=== PATIENT | female | born 1930 | race Caucasian/White ===

== ENCOUNTER 2017-02-24 04:38 | Inpatient (IN) | payer MEDICARE, BC ==
[~2017-02-24] VITALS: Ht 165.1 cm; Wt 45.4 kg
[2017-02-24] MEDS ORDERED: Sodium Chloride 500ML 500 ML IV ONE (04:39)
[2017-02-24 05:17] LABS: MEAN CORPUSCULAR HEMOGLOBIN 33.2 PG (27.0-31.0); MEAN CORPUSCULAR VOLUME 101 FL (80-99); MEAN PLATELET VOLUME 5.4 FL (6.5-10.1); PLATELET COUNT 443 K/UL (150-450); RED BLOOD COUNT 3.91 M/UL (4.20-5.40); RED CELL DISTRIBUTION WIDTH 13.4 % (11.6-14.8); WHITE BLOOD COUNT 12.8 K/UL (4.8-10.8)
[2017-02-24] MEDS ORDERED: AMLODIPINE BESYL5 MG ORAL (05:32)
[2017-02-24] MEDS ORDERED: CARAFATE1 GM/10 M1 ORAL ×2 (05:32)
[2017-02-24] MEDS ORDERED: KEPPRA LIQ100 MG/1 M ORAL (05:32)
[2017-02-24] MEDS ORDERED: LOVENOX10 M4 SUBQ (05:32)
[2017-02-24] MEDS ORDERED: CELEXA20 MG ORAL (05:32)
[2017-02-24] MEDS ORDERED: DEPAKOTE250 MG PO (05:32)
[2017-02-24] MEDS ORDERED: MIRTAZAPINE30 MG ORAL (05:32)
[2017-02-24] MEDS ORDERED: OMEPRAZOLE20 M3 ORAL (05:32)
[2017-02-24] MEDS ORDERED: DOCUSATE SODIU100 MG ORAL ×2 (05:32)
[2017-02-24 05:34] LABS: ALANINE AMINOTRANSFERASE 19 U/L (3-33); ALBUMIN/GLOBULIN RATIO 1.3 (1.0-2.7); ANION GAP 19 (5-15); ASPARTATE AMINO TRANSFERASE 17 U/L (5-40); CALCIUM 9.9 mg/dL (8.6-10.2); CARBON DIOXIDE 21 mEQ/L (20-30); CHLORIDE 100 mEQ/L (98-107); CREATININE 1.2 mg/dL (0.5-0.9); HEMOLYSIS 4; POTASSIUM 3.9 mEQ/L (3.4-4.9); SODIUM 140 mEQ/L (135-145); TOTAL PROTEIN 6.1 g/dL (6.6-8.7); TROPONIN I < 0.30 ng/mL (<=0.30)
[2017-02-24 05:41] VITALS: BP 145/58
[2017-02-24 05:45] LABS: CKMB < 1.5 ng/mL (< 3.8)
[2017-02-24 06:08] LABS: ABG ALLEN TEST POSITIVE; ABG BASE EXCESS -8.4; ABG PCO2 25.5 mmHg (35.0-45.0)
[2017-02-24 06:13] LABS: REFLEX LACTIC ACID YES OR NO YES
[2017-02-24] MEDS ORDERED: Sodium Chloride 500ML 500 ML IVPB ONE (06:30)
[2017-02-24 06:33] LABS: APPEARANCE,URINE CLEAR; KETONES,URINE NEGATIVE (NEGATIVE); LEUKOCYTE ESTERASE ,URINE 1+ (NEGATIVE); NITRITE,URINE NEGATIVE (NEGATIVE); PH,URINE 5 (4.5-8.0); PROTEIN,URINE 1+ (NEGATIVE); UROBILINOGEN,URINE NORMAL MG/DL (0.0-1.0)
[2017-02-24 06:51] VITALS: BP 145/67
[2017-02-24 06:55] LABS: BACTERIA,URINE FEW /HPF; MUCUS,URINE MODERATE /LPF (NONE/OCC); SQUAMOUS EPITHELIAL CELL,UR FEW /LPF (NONE/OCC); YEAST,URINE MODERATE /HPF
--- NOTE | 2017-02-24 06:55 | Emergency Room Report ---
History of Present Illness General Chief Complaint: Dyspnea/Respdistress Source: Medical Record Present Illness HPI 87-year-old female presents ED for evaluation. Patient presenting with shortness of breath and hypoxia at her correction. Patient was just recently transferred to the correction from the hospital after having a left upper extremity fx. patient was initially hypoxic and placed on oxygen. Patient has dementia and is at her baseline. Patient is a new provide any additional history at this time. No fevers or chills. No other aggravating or leading factors. No other associated symptom Allergies: Coded Allergies: NO KNOWN ALLERGIES (Unverified Allergy, Unknown, 08/24/15) Patient History Past Medical History: HTN, AFib, CVA/TIA, dementia Past Surgical History: none Pertinent Family History: none Social History: Denies: smoking, alcohol use, drug use Now: No Immunizations: UTD Reviewed Nursing Documentation: PMH: Agreed, PSxH: Agreed Nursing Documentation-PMH Hx Cardiac Problems: Yes - A FIB Hx Hypertension: Yes History Of Psychiatric Problem: Yes - DEMENTIA Hx Cerebrovascular Accident: Yes Review of Systems All Other Systems: limited Physical Exam Vital Signs Date Time Temp Pulse Resp B/P (MAP) Pulse Ox O2 Delivery O2 Flow Rate FiO2 02/24/17 04:26 98.6 120 15 133/61 88 Non-Rebreather 15.0 02/24/17 06:38 97 Sp02 EP Interpretation: reviewed, normal General Appearance: no apparent distress, alert, GCS 15, non-toxic Head: normocephalic Eyes: bilateral eye normal inspection, bilateral eye PERRL ENT: normal ENT inspection Neck: normal inspection Respiratory: chest non-tender, normal breath sounds, crackles, speaking full sentences Cardiovascular #1: regular rate, rhythm, no edema Gastrointestinal: normal inspection Rectal: deferred Genitourinary: no CVA tenderness Musculoskeletal: normal inspection Neurologic: other - dementia Psychiatric: other - dementia Skin: normal inspection Lymphatic: normal inspection Medical Decision Making Diagnostic Impression: Primary Impression: Respiratory distress Additional Impressions: Pneumonia Qualified Codes: J18.9 - Pneumonia, unspecified organism Severe sepsis ER Course Hospital Course 87-year-old F presenting to ED with respiratory distress, hypoxia Differential diagnoses include: Pneumonia, CHF exacerbation, pneumothorax, fluid overload Clinical course Patient placed on stretcher. On ekg monitor with hypoxia on room air. After initial history and physical, I ordered oxygen. I ordered labs, IV fluids , EKG, chest x-ray, blood cultures, UA. Labs -leukocytosis noted, hemoglobin/hematocrit stable, electrolytes ok, lactate >7, troponins negative CXR - LLL lobe infiltrate EKG - NSR, no acute ischemic changes interpreted by me given 30cc/kg fluid bolus, given abx. Case discussed with Dr. Wood and he agreed to the patient to his service for further care and support I feel this is a highly complex case requiring extensive working including EKG/ Rhythm strip, Xray/CT/US, Blood/urine lab work, repeat exams while in ED, and administration of strong opiates/narcotics for pain control, admission to hospital or close patient follow up. Diagnosis - pneumonia, respiratory distress, severe sepsis Patient admitted to telemetry in serious condition Labs Test 02/24/17 04:56 02/24/17 06:00 02/24/17 06:22 White Blood Count 12.8 K/UL (4.8-10.8) Red Blood Count 3.91 M/UL (4.20-5.40) Hemoglobin 13.0 G/DL (12.0-16.0) Hematocrit 39.4 % (37.0-47.0) Mean Corpuscular Volume 101 FL (80-99) Mean Corpuscular Hemoglobin 33.2 PG (27.0-31.0) Mean Corpuscular Hemoglobin Concent 33.0 G/DL (32.0-36.0) Red Cell Distribution Width 13.4 % (11.6-14.8) Platelet Count 443 K/UL (150-450) Mean Platelet Volume 5.4 FL (6.5-10.1) Neutrophils (%) (Auto) % (45.0-75.0) Lymphocytes (%) (Auto) % (20.0-45.0) Monocytes (%) (Auto) % (1.0-10.0) Eosinophils (%) (Auto) % (0.0-3.0) Basophils (%) (Auto) % (0.0-2.0) Sodium Level 140 mEQ/L (135-145) Potassium Level 3.9 mEQ/L (3.4-4.9) Chloride Level 100 mEQ/L (98-107) Carbon Dioxide Level 21 mEQ/L (20-30) Anion Gap 19 (5-15) Blood Urea Nitrogen 12 mg/dL (7-23) Creatinine 1.2 mg/dL (0.5-0.9) Estimat Glomerular Filtration Rate mL/min (>60) Glucose Level 261 mg/dL (74-106) Lactic Acid Level 7.40 mmol/L (0.66-2.22) Calcium Level 9.9 mg/dL (8.6-10.2) Total Bilirubin 0.5 mg/dL (0.0-1.2) Aspartate Amino Transf (AST/SGOT) 17 U/L (5-40) Alanine Aminotransferase (ALT/SGPT) 19 U/L (3-33) Alkaline Phosphatase 113 U/L (35-104) Total Creatine Kinase 34 U/L (26-140) Creatine Kinase MB < 1.5 ng/mL (< 3.8) Creatine Kinase MB Relative Index 4.4 Troponin I < 0.30 ng/mL (<=0.30) Pro-B-Type Natriuretic Peptide 767 pg/mL (0-450) Total Protein 6.1 g/dL (6.6-8.7) Albumin 3.5 g/dL (3.5-5.2) Globulin 2.6 g/dL Albumin/Globulin Ratio 1.3 (1.0-2.7) Arterial Blood pH 7.387 (7.350-7.450) Arterial Blood Partial Pressure CO2 25.5 mmHg (35.0-45.0) Arterial Blood Partial Pressure O2 84.1 mmHg (75.0-100.0) Arterial Blood HCO3 15.0 mmol/L (22.0-26.0) Arterial Blood Oxygen Saturation 95.0 % (92.0-98.0) Arterial Blood Base Excess -8.4 Wesley Test Positive EKG Diagnostic Results Rate: tachycardiac Rhythm: NSR ST Segments: no acute changes ASA given to the pt in ED: No Rhythm Strip Diag. Results EP Interpretation: yes Rhythm: NSR, no PVC's, no ectopy Chest X-Ray Diagnostic Results Chest X-Ray Diagnostic Results : Chest X-Ray Ordered: Yes # of Views/Limited/Complete: 1 View Indication: Shortness of Breath EP Interpretation: Yes Interpretation: no pneumothorax, no acute cardiopulmonary disease, other - LLL consolidation Impression: Other - pneumonia Last Vital Signs Date Time Temp Pulse Resp B/P (MAP) Pulse Ox O2 Delivery O2 Flow Rate FiO2 02/24/17 06:38 95 36 Non-Rebreather 15.0 97 02/24/17 05:41 98.6 145/58 88 Status: improved Disposition: ADMITTED INPATIENT Condition: Serious Referrals: GEETA WOOD (PCP) TOÑA MORA M.D. Feb 24, 2017 06:55
[2017-02-24] MEDS ORDERED: Pantoprazole Inj IVP ONE (08:00)
[2017-02-24] MEDS ORDERED: Thiamine 100mg tab ORAL ONE (08:00)
--- NOTE | 2017-02-24 08:56 | Consultation ---
Consult Note Assessment/Plan dict sepsis pneumonia dementia lactic acidosis L humerus fx s/p CVA P A fib seizure d/o abx O2 HHN prognosis guarded PAULINA ANAND Feb 24, 2017 08:56
[2017-02-24] MEDS ORDERED: Acetaminophen 650 MG SUPP RECTAL ONE ×2 (09:48→10:00)
[2017-02-24] MEDS ORDERED: Tubing IV Cassette IV ONE (09:48)
--- NOTE | 2017-02-24 11:12 | Diagnostic Imaging Report ---
Indication: Dyspnea Comparison: 07/21/11 A single view chest radiograph was obtained. Findings: Basilar interstitial densities are present. Heart size remains normal. Pulmonary vascularity is likely within normal limits. Bones are osteopenic. Multiple old rib fractures noted on the left. A left humeral renan is partially noted. Impression: Basilar densities likely atelectasis. Rib fractures on the left likely old. Osteoporosis.
[2017-02-24 12:00] VITALS: BP 123/69
[2017-02-24] MEDS ORDERED: Vancomycin 1gm/D5W 275ml IVPB ONE ×2 (12:00)
[2017-02-24] MEDS ORDERED: Thiamine HCl 100 MG in D5W 55 ML IVPB ONE (13:00)
[2017-02-24] MEDS: D5 1/2NS 1,000 ML IV SCH ×2 (13:21→18:35)
[2017-02-24] MEDS: Pantoprazole Inj IVP SCH ×2 (13:39→21:17)
[2017-02-24] MEDS: Albuterol/Ipratropium 3ml neb INH SCH ×2 (15:17→19:00)
[2017-02-24] MEDS: Piperacillin/Tazobactam 3.375 GM in D5W 110 ML IV SCH ×2 (15:32→21:18)
--- NOTE | 2017-02-24 15:38 | Geriatric Progress Note ---
Subjective Interval Events Patient admitted after vomiting, developing congestion and hypoxia at SNF, within 12 hours of transfer from [facility]. In ER findings of mild leukocytosis, marked lactic acidosis. CXR consistent with element of aspiration pneumonia. On examination patient with significant respiratory congestion. PMH: Surgical reduction of displaced L humeral fx at [facility] complicated by lacunar stroke. Poor oral intake associated with above. 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 HTN. Hx parathyroid disorder. Spinal stenosis with gait disorder and LE weakness. Osteoporosis. S/p hyst, appy, tonsillectomy. Meds: Amlodipine 5mg qd. Vit D3 2000u daily. Celexa 20 daily. Mirtazapine 15mg qhs. Divalproex 250mg qnoon and qhs. Docusate 100mg qam, qnoon, 2tabs qhs. Olanzapine 2.5mg bid. Omeprazole 20mg daily. Vortioxetine 10mg daily. Senna qhs Cranberry 500 bid. MVI. Patient audibly congested. Opens eyes to auditory stimuli, but does not look at examiner. No verbalizations. Does not follow instructions. L arm immobilizer. Lungs coarse rhonchi and rales. CV RR Abd soft. Ext without edema, but increased tone throughout. Apparent sepsis with pulmonary source, likely aspiration. Seen by Dr. Carranza, placed on Vanco, Zosyn. Continue NRBM O2, suction prn. Thiamine, MVI given for any possible contribution to lactic acidosis. Decrease IVF given fairly normal renal parameters, slightly elevated ProBNP. 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 Poor prognosis. Discussed with dtr. Family is jain, so patient remains full code despite questionable quality of life and limited prognosis. Dictated #[id number]. Geriatric Geriatric Last 24 Hour Vital Signs Date Time Temp Pulse Resp B/P (MAP) Pulse Ox O2 Delivery O2 Flow Rate FiO2 02/24/17 12:00 109 02/24/17 12:00 97.9 100 24 123/69 98 Non-Rebreather 15.0 02/24/17 09:50 100.4 95 36 145/67 95 Non-Rebreather 15.0 97 02/24/17 09:50 100.4 02/24/17 06:51 97.6 95 36 145/67 95 Non-Rebreather 15.0 02/24/17 06:38 95 36 Non-Rebreather 15.0 97 02/24/17 05:41 98.6 95 15 145/58 88 Non-Rebreather 15.0 02/24/17 04:26 98.6 120 15 133/61 88 Non-Rebreather 15.0 Intake and Output 02/24/17 02/25/17 19:00 07:00 Intake Total 1070.708 ml Balance 1070.708 ml Intake IV Total 1070.708 ml Laboratory Tests Test 02/24/17 04:56 02/24/17 06:00 02/24/17 06:22 02/24/17 08:55 White Blood Count 12.8 K/UL (4.8-10.8) H Red Blood Count 3.91 M/UL (4.20-5.40) L Hemoglobin 13.0 G/DL (12.0-16.0) Hematocrit 39.4 % (37.0-47.0) Mean Corpuscular Volume 101 FL (80-99) H Mean Corpuscular Hemoglobin 33.2 PG (27.0-31.0) H Mean Corpuscular Hemoglobin Concent 33.0 G/DL (32.0-36.0) Red Cell Distribution Width 13.4 % (11.6-14.8) Platelet Count 443 K/UL (150-450) Mean Platelet Volume 5.4 FL (6.5-10.1) L Neutrophils (%) (Auto) % (45.0-75.0) Lymphocytes (%) (Auto) % (20.0-45.0) Monocytes (%) (Auto) % (1.0-10.0) Eosinophils (%) (Auto) % (0.0-3.0) Basophils (%) (Auto) % (0.0-2.0) Sodium Level 140 mEQ/L (135-145) Potassium Level 3.9 mEQ/L (3.4-4.9) Chloride Level 100 mEQ/L (98-107) Carbon Dioxide Level 21 mEQ/L (20-30) Anion Gap 19 (5-15) H Blood Urea Nitrogen 12 mg/dL (7-23) Creatinine 1.2 mg/dL (0.5-0.9) H Estimat Glomerular Filtration Rate mL/min (>60) Glucose Level 261 mg/dL (74-106) H Lactic Acid Level 7.40 mmol/L (0.66-2.22) H 8.00 mmol/L (0.66-2.22) H Calcium Level 9.9 mg/dL (8.6-10.2) Total Bilirubin 0.5 mg/dL (0.0-1.2) Aspartate Amino Transf (AST/SGOT) 17 U/L (5-40) Alanine Aminotransferase (ALT/SGPT) 19 U/L (3-33) Alkaline Phosphatase 113 U/L (35-104) H Total Creatine Kinase 34 U/L (26-140) Creatine Kinase MB < 1.5 ng/mL (< 3.8) Creatine Kinase MB Relative Index 4.4 Troponin I < 0.30 ng/mL (<=0.30) Pro-B-Type Natriuretic Peptide 767 pg/mL (0-450) H Total Protein 6.1 g/dL (6.6-8.7) L Albumin 3.5 g/dL (3.5-5.2) Globulin 2.6 g/dL Albumin/Globulin Ratio 1.3 (1.0-2.7) Arterial Blood pH 7.387 (7.350-7.450) Arterial Blood Partial Pressure CO2 25.5 mmHg (35.0-45.0) L Arterial Blood Partial Pressure O2 84.1 mmHg (75.0-100.0) Arterial Blood HCO3 15.0 mmol/L (22.0-26.0) L Arterial Blood Oxygen Saturation 95.0 % (92.0-98.0) Arterial Blood Base Excess -8.4 Wesley Test Positive Urine Color Yellow Urine Appearance Clear Urine pH 5 (4.5-8.0) Urine Specific [place] 1.025 (1.005-1.035) Urine Protein 1+ (NEGATIVE) H Urine Glucose (UA) Negative (NEGATIVE) Urine Ketones Negative (NEGATIVE) Urine Occult Blood 1+ (NEGATIVE) H Urine Nitrite Negative (NEGATIVE) Urine Bilirubin Negative (NEGATIVE) Urine Urobilinogen Normal MG/DL (0.0-1.0) Urine Leukocyte Esterase 1+ (NEGATIVE) H Urine RBC 2-4 /HPF (0 - 2) H Urine WBC 2-4 /HPF (0 - 2) Urine Squamous Epithelial Cells Few /LPF (NONE/OCC) Urine Bacteria Few /HPF (NONE) Urine Mucus Moderate /LPF (NONE/OCC) H Urine Yeast Moderate /HPF (NONE) H Current Medications Medications (Trade) Dose Ordered Sig/Autumn Route PRN Reason Start Time Stop Time Status Last Admin Dose Admin Albuterol/ Ipratropium (DuoNeb 0.5-3(2.5)mg/3ml) 3 ml Q4HRT INH 02/24/17 15:00 03/01/17 14:59 Dextrose/Sodium Chloride 1,000 ml @ 125 mls/hr Q8H IV 02/24/17 11:30 03/26/17 11:29 02/24/17 13:21 Heparin Sodium (Porcine) (Heparin 5000 units/ml) 5,000 units Q12H SUBQ 02/24/17 21:00 03/26/17 20:59 Pantoprazole (Protonix) 40 mg EVERY 12 HOURS IVP 02/24/17 12:00 03/26/17 11:59 02/24/17 13:39 Piperacillin Sod/ Tazobactam Sod 3.375 gm/Dextrose 110 ml @ 27.5 mls/hr EVERY 8 HOURS IV 02/24/17 14:00 03/03/17 13:59 Vancomycin HCl (Vanco rx to dose) 1 ea DAILY PRN MISC PER RX PROTOCOL 02/24/17 09:00 03/26/17 08:59 Vancomycin HCl 500 mg/Dextrose 110 ml @ 110 mls/hr Q24H IVPB 02/25/17 12:00 03/02/17 11:59 Height (Feet): 5 Height (Inches): 2.00 Weight (Pounds): 100 GEETA WOOD Feb 24, 2017 15:38
[2017-02-24 16:00] VITALS: BP 123/72
--- NOTE | 2017-02-24 17:00 | Consultation ---
DATE OF CONSULTATION: 02/24/2017 PULMONARY CONSULTATION CONSULTING PHYSICIAN: Osmar Carranza M.D. ATTENDING PHYSICIAN: Scar Callahan M.D. CHIEF COMPLAINT: Short of breath and congestion. History Of Present Illness: The patient was transferred from a nearby [place] facility to the emergency department for the above symptoms. She provides no additional history. The records were reviewed. She was found to have pneumonia and sepsis and admission was recommended. I was called to see her for consultation regarding management of her pulmonary problems. Past Medical History: She was recently hospitalized at [facility] for a fall with stroke and a left humerus fracture. She has dementia and aphasia. She has history of paroxysmal atrial fibrillation, seizure disorder, hypertension, and depression. CODE STATUS: Full code. ALLERGIES: None. Medications: Amlodipine, citalopram, Depakote, Lovenox, Keppra, Remeron, omeprazole, and Carafate. In the emergency department, she was given pantoprazole, thiamine, heparin, and intravenous fluids as well as Levaquin. REVIEW OF SYSTEMS: Cannot be obtained. PHYSICAL EXAMINATION: General: The patient is awake, but does not respond or make eye contact. The patient is frail and appears chronically and acutely ill. Vital Signs: Show respirations of 36, blood pressure 145/67, saturations 95% on non-rebreather mask at 15 L, heart rate is 95 to 120, and temperature is normal. HEENT: The head has temporal muscle wasting. NECK: No jugular vein distention. CHEST: Rales and pleural friction rubs in both bases posteriorly. CARDIAC: Rhythm is regular. Tachycardia. ABDOMEN: Soft and nontender. Liver and spleen not enlarged. Extremities: No clubbing, cyanosis, or edema. There is a sling on the left arm. Diagnostic And Laboratory Data: A chest x-ray was reviewed and appears to show bibasilar pneumonia. White blood count is elevated at 12,800, hemoglobin is 13, and platelet count is normal. Blood gas shows metabolic acidosis which is compensated. Chemistry shows lactic acid is elevated at 7.4, creatinine 1.2, bicarbonate 19, blood sugar 261, alkaline phosphatase slightly elevated at 113. Natriuretic peptide 767. Urinalysis is negative for infection. IMPRESSION: 1. Sepsis due to pneumonia. 2. Pneumonia. 3. Dementia. 4. Lactic acidosis. 5. Left humerus fracture. 6. Status post stroke. 7. Paroxysmal atrial fibrillation. 8. Seizure disorder. 9. Hyperglycemia. Plan: The patient will be given antibiotics, oxygen, and respiratory treatments. Her prognosis is guarded. Thank you for asking me to see her in consultation. I follow closely with you in the hospital. Osmar Carranza M.D. DR: MARTHA JOB#: [id number] CC: Scar Callahan M.D.; Fax#: [phone] Carranza M.D. ; Fax#: [phone]
[2017-02-24 20:00] VITALS: BP 91/65
[2017-02-24] MEDS: Heparin 5000 units/ml inj SUBQ SCH (21:28)
[2017-02-24] MEDS ORDERED: Levalbuterol Inh UD 1.25mg/0.5ml HHN SCH (23:00)
[2017-02-25] VITALS: BP 79/65
--- NOTE | 2017-02-25 03:00 | History and Physical Report ---
DATE OF ADMISSION: 02/24/2017 Identification Data: The patient is an 87-year-old woman, who was noted to have vomited and developed significant respiratory distress with hypoxia at her long-term facility and was brought by 911 to [facility]. History Of Present Illness: The patient had recently been discharged from [facility], in fact the day prior to this transfer, after treatment for a displaced left humeral fracture status post surgical reduction complicated by the finding of an apparent centrum ovale lacune. The patient was noted to be eating extremely poorly, and not mobilizing well, and not responding well. This clinical picture was more difficult to interpret because the patient has history of severe psychotic depression and at times would in fact not respond or cooperate very poorly because of her psychotic depression. Therefore, it is unclear whether the patient's symptoms were primarily due to her neurologic event, psychiatric exacerbation, or potentially some other metabolic abnormality. After a significant stay at [facility], the decision was made by the family to have the patient go to a long-term facility in the hope that she would recover sufficiently that she could be [facility] recently. Apparently on arrival at the long-term facility, the patient had an episode of vomitus. She otherwise appeared stable and was not noted to be in any distress; however, in the director of financial reporting hours today, the patient once again vomited and was noted to develop significant respiratory distress with an O2 saturation going as low as 80%. The patient was therefore transferred to the emergency room. In the emergency room, the patient was noted to have mild leukocytosis, but marked lactic acidosis suggestive of septic process. The patient's urinalysis is fairly unremarkable. Chest x-ray was felt to be possibly consistent with pulmonary process, especially possibly an early aspiration. The patient is admitted for further evaluation and treatment. In the emergency room, the patient received a bolus of fluids as well as a dose of Levaquin. Since coming to the floor, she was seen by Dr. Carranza who initiated broad-spectrum coverage with vancomycin and Zosyn. PAST MEDICAL HISTORY: 1. Surgical reduction of displaced left humeral fracture as described above, complicated by apparent lacunar stroke in the centrum ovale. 2. Poor oral intake associated with above. 3. History of severe psychotic depression treated in the past with electroconvulsive therapy on residual antipsychotic and antidepressant therapy. 4. Hypertension. 5. History of parathyroid disorder. 6. Spinal stenosis with gait disorder and lower extremity weakness. 7. Osteoporosis. 8. Status post hysterectomy, appendectomy, and tonsillectomy. Social History: The patient is and her severe psychotic decompensation occurred apparently around the time that she lost her . Her daughter, Hyun Griffith is her surrogate decision maker. She was placed in [facility] recently after living in a larger [facility] prior to that. Medications: The patient's medications prior to the admission to [facility] included amlodipine 5 mg daily, vitamin D3 2000 units daily, Celexa 20 mg daily, mirtazapine 15 mg nightly, Lipitor 10 mg daily, divalproex 250 mg every noon and nightly, docusate 100 mg every morning and every noon and 200 mg at bedtime, olanzapine 2.5 mg b.i.d., omeprazole 20 mg daily, senna nightly, cranberry 500 mg b.i.d., and multivitamins. ALLERGIES: No known allergies. Review Of Systems: Cannot be obtained meaningfully because of the patient's inability to verbally respond. Her clinical course recently is as described above. PHYSICAL EXAMINATION: Vital Signs: The patient's blood pressure was 123/69, heart rate is 100 and regular, respiratory rate 24, and temperature 97.9 degrees. The patient has 98% oxygen saturation on non-rebreather mask at 15 L. General: The patient is an elderly frail woman, who opens her eyes to auditory stimuli, but has no verbal output and does not look at the examiner. She does not follow any instructions. There is audible respiratory congestion. Lungs: Revealed coarse rhonchi and rales with audible upper airway congestion. CARDIAC: Reveals regular rhythm. Abdomen: Reveals normal bowel sounds. Soft and nontender without apparent masses or organomegaly. No suprapubic tenderness is elicited. Extremities: Revealed increased tone throughout. Left upper extremity is in an immobilization splint. The other extremities have increased tone, especially in the lower extremities with the patient tending to hold her legs in a somewhat flexed position and with very little spontaneous movement. Neurological: Clear neurologic examination cannot be done because of the patient's inability to respond. She clearly has lower extremity weakness as well as increased tone. Strength in the upper extremities is difficult because of the fracture and also because of her inability to respond. Laboratory And Diagnostic Data: The patient's laboratory data include white count of 12.8, hematocrit of 39.4 with MCV of 101, and platelet count of 443,000. The sodium is 140, potassium 3.9, chloride 100, bicarbonate 21, BUN 12, creatinine 1.2, and glucose was 261. The initial lactate was 7.40 and four hours later was 8.0. Calcium is 9.9. Total bilirubin 0.5, AST 17, ALT 19, alkaline phosphatase 113. Total CK 34, MB less than 1.5, troponin is less than 0.3, proBNP is 767. Total protein 6.1, albumin 3.5. Urinalysis reveals 2 to 4 RBCs, 2 to 4 WBCs, moderate yeast, moderate mucus, 1+ occult blood, and 1+ protein. Blood gas shows pH of 7.387, pCO2 of 25.5, and pO2 of 84 on the 15 L nonrebreathing mask. The chest x-ray is read as showing basilar densities likely atelectasis, rib fractures on left likely old, and osteoporosis. Impression And Plan: The patient presents with what clinically appears to be a septic episode with high lactic acid possibly associated with an aspiration pneumonia. Because the patient has not been eating well, the possibility of a thiamine deficiency contributing is considered and the patient was given 100 mg of thiamine in the emergency room as well as continuing vitamin supplementation in the intravenous fluid. The patient was seen by Dr. Carranza and broad-spectrum antibiotic coverage was provided with Zosyn and vancomycin. The patient will be suctioned and supplemented with oxygen. Clearly given the persistent elevation of lactic acidosis, the patient's prognosis is quite poor with evidence of multisystem organ dysfunction. The situation has been discussed in detail with the patient's daughter. Because the family is muslim, the patient remains full code and all measures are requested despite the patient's apparent poor quality of life and poor prognosis. Repeat laboratories have been ordered. The patient's intravenous fluid has been decreased somewhat since her renal parameters suggest that she may be close to volume repletion without evidence of significant electrolyte disorder. All of the patient's oral medications essentially are being held. Possibility of serotonergic discontinuation syndrome needs to be considered; however, the patient apparently was not taking her antidepressants well at [facility] and therefore, the discontinuation may have already been in process at [facility]. The patient has been placed on heparin for DVT prophylaxis. Neurologic consultation has been requested from Dr. Cross with regard to the patient's apparent recent lacune as well as the question of the relative benefits of antiseizure therapy in this situation. Additional interventions will be considered depending on the patient's response to therapy. Scar Callahan M.D. DR: Elsa JOB#: [id number] CC: [email or web address]
[2017-02-25] MEDS: D5 1/2NS 1,000 ML IV SCH ×3 (03:30→19:30)
[2017-02-25] MEDS: Levalbuterol Inh UD 1.25mg/0.5ml HHN SCH ×6 (03:38→23:36)
[2017-02-25] MEDS: Ipratropium 0.02% Inh Soln 2.5ml UD HHN PRN (03:39)
[2017-02-25 04:00] VITALS: BP 119/59
[2017-02-25] MEDS: Piperacillin/Tazobactam 3.375 GM in D5W 110 ML IV SCH ×3 (06:00→21:42)
[2017-02-25 08:00] VITALS: BP 141/61
[2017-02-25] MEDS: Heparin 5000 units/ml inj SUBQ SCH ×2 (10:34→20:37)
[2017-02-25 11:30] LABS: REFLEX LACTIC ACID YES OR NO YES
[2017-02-25 12:00] VITALS: BP 132/70
[2017-02-25] MEDS: Pantoprazole Inj IVP SCH ×2 (12:34→20:30)
[2017-02-25] MEDS: Vancomycin 500mg/D5W 110ml IVPB SCH ×2 (12:39)
--- NOTE | 2017-02-25 15:52 | Geriatric Progress Note ---
Assessment/Plan Assessment/Plan Clinically appears slightly less congested and in no overt distress. Repeat labs reordered. Etiology of rigidity unclear - ?associated with serotonergic dyscontinuation, ? psychotic, ? postictal. Awaiting neurology evaluation. Continue present regimen otherwise. Discussed with: family, hospital staff Subjective Interval Events Patient appears comfortable with 15l NRBM. Staff reports no acute change. Last p.m., episode of tachycardia associated with duplicated bronchodilator orders. Adrenergic agents adjusted. Apparently IVF, antibiotics were delayed due to access issues. Lactate reveals some improvement. Other labs not done, apparently orders did not complete. Blood C&S NGTD. Subjective Does not respond. Geriatric Geriatric Last 24 Hour Vital Signs Date Time Temp Pulse Resp B/P (MAP) Pulse Ox O2 Delivery O2 Flow Rate FiO2 02/25/17 15:10 103 22 97 Non-Rebreather 15.0 100 02/25/17 15:05 100 22 94 Non-Rebreather 15.0 100 02/25/17 12:00 98.2 106 20 132/70 99 Non-Rebreather 02/25/17 11:25 112 22 97 Non-Rebreather 15.0 100 02/25/17 11:20 108 22 94 Non-Rebreather 15.0 100 02/25/17 08:00 97.3 120 22 141/61 93 Simple Mask 02/25/17 07:15 97 Non-Rebreather 15.0 100 02/25/17 07:15 115 22 97 Non-Rebreather 15.0 100 02/25/17 07:15 Non-Rebreather 15.0 100 02/25/17 07:10 116 22 94 Non-Rebreather 15.0 100 02/25/17 04:00 149 02/25/17 04:00 97.2 109 24 119/59 98 Non-Rebreather 15.0 100 02/25/17 03:27 107 24 97 Non-Rebreather 15.0 100 02/25/17 03:16 102 24 97 Non-Rebreather 15.0 100 02/25/17 00:20 100 02/25/17 00:00 97.7 194 16 79/65 93 Non-Rebreather 15.0 100 02/24/17 23:15 124 22 96 Non-Rebreather 15.0 100 02/24/17 23:00 116 24 97 Non-Rebreather 15.0 100 02/24/17 20:19 96 Non-Rebreather 15.0 100 02/24/17 20:19 Non-Rebreather 15.0 100 02/24/17 20:00 97.7 105 14 91/65 97 Non-Rebreather 15.0 100 02/24/17 19:30 112 22 96 Non-Rebreather 15.0 100 02/24/17 19:30 112 20 97 Non-Rebreather 15.0 100 02/24/17 16:00 96.6 106 16 123/72 96 Venturi Mask 15.0 02/24/17 16:00 100 02/24/17 15:47 100 Non-Rebreather 15.0 100 02/24/17 15:46 Non-Rebreather 15.0 100 Laboratory Tests Test 02/25/17 10:55 02/25/17 12:50 Lactic Acid Level 2.80 mmol/L (0.66-2.22) H 3.30 mmol/L (0.66-2.22) H Current Medications Medications (Trade) Dose Ordered Sig/Autumn Route PRN Reason Start Time Stop Time Status Last Admin Dose Admin Dextrose/Sodium Chloride 1,000 ml @ 125 mls/hr Q8H IV 02/24/17 11:30 03/26/17 11:29 02/25/17 12:38 Heparin Sodium (Porcine) (Heparin 5000 units/ml) 5,000 units Q12H SUBQ 02/24/17 21:00 03/26/17 20:59 02/25/17 10:34 Ipratropium [place] (Atrovent) 500 mcg Q4H PRN HHN Shortness of Breath 02/24/17 21:45 03/01/17 21:44 02/25/17 03:39 Levalbuterol HCl (Xopenex) 1.25 mg Q4HRT HHN 02/25/17 03:00 03/02/17 02:59 02/25/17 15:12 Pantoprazole (Protonix) 40 mg EVERY 12 HOURS IVP 02/24/17 12:00 03/26/17 11:59 02/25/17 12:34 Piperacillin Sod/ Tazobactam Sod 3.375 gm/Dextrose 110 ml @ 27.5 mls/hr EVERY 8 HOURS IV 02/24/17 14:00 03/03/17 13:59 02/25/17 14:39 Vancomycin HCl (Vanco rx to dose) 1 ea DAILY PRN MISC PER RX PROTOCOL 02/24/17 09:00 03/26/17 08:59 Vancomycin HCl 500 mg/Dextrose 110 ml @ 110 mls/hr Q24H IVPB 02/25/17 12:00 03/02/17 11:59 02/25/17 12:39 Height (Feet): 5 Height (Inches): 2.00 Weight (Pounds): 100 General Appearance: no apparent distress Head: normocephalic, atraumatic Eyes: bilateral anicteric ENT: other - NRBM in place Neck: other - increased tone Respiratory: other - Less congested. Cardiovascular: regular rate, rhythm Gastrointestinal: normal bowel sounds, non tender, soft, no mass, non-distended Edema: no edema noted Generalized Neurologic: other - eyes closed. With auditory stimuli, opens eyes slightly, but no other response. Increased tone in all extermities, L>U. GEETA WOOD Feb 25, 2017 15:52
[2017-02-25 15:58] VITALS: BP 145/77
[2017-02-25 16:31] LABS: MEAN CORPUSCULAR HEMOGLOBIN 33.9 PG (27.0-31.0); MEAN CORPUSCULAR HGB CONC 34.3 G/DL (32.0-36.0); MEAN CORPUSCULAR VOLUME 99 FL (80-99); MEAN PLATELET VOLUME 5.1 FL (6.5-10.1); PLATELET COUNT 260 K/UL (150-450); RED BLOOD COUNT 2.72 M/UL (4.20-5.40); RED CELL DISTRIBUTION WIDTH 13.6 % (11.6-14.8); WHITE BLOOD COUNT 12.5 K/UL (4.8-10.8)
[2017-02-25 16:39] LABS: BASOPHILS % (AUTO) 0.3 % (0.0-2.0); LYMPHOCYTES % (AUTO) 4.2 % (20.0-45.0); MONOCYTES % (AUTO) 2.9 % (1.0-10.0); NEUTROPHILS % (AUTO) 92.6 % (45.0-75.0)
[2017-02-25 16:56] LABS: ANION GAP 11 (5-15); CALCIUM 9.4 mg/dL (8.6-10.2); CARBON DIOXIDE 22 mEQ/L (20-30); CHLORIDE 105 mEQ/L (98-107); CREATININE 0.8 mg/dL (0.5-0.9); HEMOLYSIS 2; MAGNESIUM 1.4 mg/dL (1.7-2.5); POTASSIUM 3.3 mEQ/L (3.4-4.9); SODIUM 138 mEQ/L (135-145)
[2017-02-25] MEDS ORDERED: D5 1/2NS 1000ml IV ONE (18:31)
[2017-02-25] MEDS ORDERED: Tubing IV Secondary IV ONE (18:31)
[2017-02-25] MEDS ORDERED: NS 275ml ONE (18:31)
--- NOTE | 2017-02-25 18:51 | Pulmonology Progress Note ---
Assessment/Plan Assessment/Plan 1. Sepsis due to pneumonia. 2. Pneumonia. 3. Dementia. 4. Lactic acidosis. 5. Left humerus fracture. 6. Status post stroke. 7. Paroxysmal atrial fibrillation. 8. Seizure disorder. 9. Hyperglycemia. looks better lactate down no resp distress WBC still 12 cont abx, IV Subjective ROS Limited/Unobtainable: Yes Constitutional: Denies: fever Respiratory: Reports: shortness of breath Allergies: Coded Allergies: NO KNOWN ALLERGIES (Unverified Allergy, Unknown, 08/24/15) Objective Last 24 Hour Vital Signs Date Time Temp Pulse Resp B/P (MAP) Pulse Ox O2 Delivery O2 Flow Rate FiO2 02/25/17 16:00 95 02/25/17 15:58 98.4 114 21 145/77 94 Non-Rebreather 02/25/17 15:10 103 22 97 Non-Rebreather 15.0 100 02/25/17 15:05 100 22 94 Non-Rebreather 15.0 100 02/25/17 12:00 110 02/25/17 12:00 98.2 106 20 132/70 99 Non-Rebreather 02/25/17 11:25 112 22 97 Non-Rebreather 15.0 100 02/25/17 11:20 108 22 94 Non-Rebreather 15.0 100 02/25/17 08:00 108 02/25/17 08:00 97.3 120 22 141/61 93 Simple Mask 02/25/17 07:15 97 Non-Rebreather 15.0 100 02/25/17 07:15 115 22 97 Non-Rebreather 15.0 100 02/25/17 07:15 Non-Rebreather 15.0 100 02/25/17 07:10 116 22 94 Non-Rebreather 15.0 100 02/25/17 04:00 149 02/25/17 04:00 97.2 109 24 119/59 98 Non-Rebreather 15.0 100 02/25/17 03:27 107 24 97 Non-Rebreather 15.0 100 02/25/17 03:16 102 24 97 Non-Rebreather 15.0 100 02/25/17 00:20 100 02/25/17 00:00 97.7 194 16 79/65 93 Non-Rebreather 15.0 100 02/24/17 23:15 124 22 96 Non-Rebreather 15.0 100 02/24/17 23:00 116 24 97 Non-Rebreather 15.0 100 02/24/17 20:19 96 Non-Rebreather 15.0 100 02/24/17 20:19 Non-Rebreather 15.0 100 02/24/17 20:00 97.7 105 14 91/65 97 Non-Rebreather 15.0 100 02/24/17 19:30 112 22 96 Non-Rebreather 15.0 100 02/24/17 19:30 112 20 97 Non-Rebreather 15.0 100 Intake and Output 02/25/17 02/26/17 19:00 07:00 Intake Total 970.0 ml Balance 970.0 ml Intake IV Total 970.0 ml General Appearance: no acute distress Respiratory/Chest: decreased breath sounds Cardiovascular: normal rate Microbiology Date/Time Source Procedure Growth Status 02/24/17 05:00 Blood Blood Culture - Preliminary NO GROWTH AFTER 24 HOURS Resulted 02/24/17 04:58 Blood Blood Culture - Preliminary NO GROWTH AFTER 24 HOURS Resulted 02/24/17 06:22 Urine,Clean Catch Urine Culture - Preliminary Resulted Laboratory Tests 02/25/17 10:55: Lactic Acid Level 2.80H 02/25/17 12:50: Lactic Acid Level 3.30H 02/25/17 16:20: White Blood Count 12.5H, Red Blood Count 2.72L, Hemoglobin 9.2L, Hematocrit 26.9 #L, Mean Corpuscular Volume 99, Mean Corpuscular Hemoglobin 33.9H, Mean Corpuscular Hemoglobin Concent 34.3, Red Cell Distribution Width 13.6, Platelet Count 260, Mean Platelet Volume 5.1L, Neutrophils (%) (Auto) 92.6H, Lymphocytes (%) (Auto) 4.2L, Monocytes (%) (Auto) 2.9, Eosinophils (%) (Auto) 0.0, Basophils (%) (Auto) 0.3, Sodium Level 138, Potassium Level 3.3L, Chloride Level 105, Carbon Dioxide Level 22, Anion Gap 11, Blood Urea Nitrogen 23, Creatinine 0.8, Estimat Glomerular Filtration Rate , Glucose Level 141#H, Calcium Level 9.4, Magnesium Level 1.4L, Total Creatine Kinase 166H Current Medications Medications (Trade) Dose Ordered Sig/Autumn Route PRN Reason Start Time Stop Time Status Last Admin Dose Admin Dextrose/Sodium Chloride 1,000 ml @ 125 mls/hr Q8H IV 02/24/17 11:30 03/26/17 11:29 02/25/17 12:38 Heparin Sodium (Porcine) (Heparin 5000 units/ml) 5,000 units Q12H SUBQ 02/24/17 21:00 03/26/17 20:59 02/25/17 10:34 Ipratropium [place] (Atrovent) 500 mcg Q4H PRN HHN Shortness of Breath 02/24/17 21:45 03/01/17 21:44 02/25/17 03:39 Levalbuterol HCl (Xopenex) 1.25 mg Q4HRT HHN 02/25/17 03:00 03/02/17 02:59 02/25/17 15:12 Pantoprazole (Protonix) 40 mg EVERY 12 HOURS IVP 02/24/17 12:00 03/26/17 11:59 02/25/17 12:34 Piperacillin Sod/ Tazobactam Sod 3.375 gm/Dextrose 110 ml @ 27.5 mls/hr EVERY 8 HOURS IV 02/24/17 14:00 03/03/17 13:59 02/25/17 14:39 Vancomycin HCl (Vanco rx to dose) 1 ea DAILY PRN MISC PER RX PROTOCOL 02/24/17 09:00 03/26/17 08:59 Vancomycin HCl 500 mg/Dextrose 110 ml @ 110 mls/hr Q24H IVPB 02/25/17 12:00 03/02/17 11:59 02/25/17 12:39 PAULINA ANAND Feb 25, 2017 18:51
--- NOTE | 2017-02-25 18:59 | Consultation ---
Consult Note Consult Note NEUROLOGY CONSULTATION: Full note dictated #[id number] 87 y/o, RH, CF with PH of depression, HTN, thyroid disease, spinal stenosis, a-fib and dementia who was admitted to on 02/13/17 for a left humerus fracture which was treated with an ORIF. Following surgery she became more altered than her baseline. Prolonged EEG monitoring revealed an encephalopathy and interictal left temporal discharges but no seizures. A brain MRI revealed atrophy, DWM disease and a left centrum semiovale stroke. She was sent to a SNF and was there for a short time and then vomited and developed an aspiration pneumonia as a result of which she was sent to the [facility] ER and admitted on 02/24/2017. ON EXAM: Can be aroused with painful stimuli. Mute and unable to follow commands. R- VII central Moves all 4s on pain Brisker DTRs on right Extensor plantars bilaterally. IMPRESSION: Underlying dementia with superimposed toxic encephalopathy due to pneumonia and sepsis. Focal neurologic deficits due to old CVD. REC: Continue present Rx. Due to interictal discharges seen on prior EEG would restart antiseizure medicine - Keppra 500 mg q 12 Hours. Observe closely. Michael Cross M.D., M.S.P.MICHAEL TRIPATHI Feb 25, 2017 18:59
[2017-02-25 20:20] VITALS: BP 120/75
[2017-02-25] MEDS ORDERED: levETIRAcetam 500mg/NS100ml 100 ML IVPB ONE (21:00)
[2017-02-26] VITALS (7 sets, daily range): BP systolic 112–131; BP diastolic 50–62
--- NOTE | 2017-02-26 02:45 | Consultation ---
DATE OF CONSULTATION: 02/25/2017 NEUROLOGY CONSULTATION CONSULTING PHYSICIAN: Iglesia Cross M.D. REQUESTING PHYSICIAN: Scar Callahan M.D. HISTORY: Ms Debi Werner is an 87-year-old, right-handed, lady, who does have past history of depression for which she has needed electroconvulsive therapy in the past, hypertension, thyroid disease, spinal stenosis, atrial fibrillation, and dementia. She was functioning relatively well in her penitentiary until 02/13/2017 when she fell down and sustained a fracture of the left humerus. This was treated at [facility] with an open reduction and internal fixation. Following surgery, the patient became much more altered than the baseline. She was evaluated for this alteration in mental state and workup revealed that she was encephalopathic. An EEG monitoring was performed for two days and revealed no ictal phenomena, but did reveal left temporal interictal discharges. In addition, the background was slow. An MRI scan of the brain was done and revealed atrophy, deep white matter disease, and a left centrum semiovale acute infarct. She was stabilized at [facility] where she continued to have an altered mental state, episodes of staring in space, and not being responsive. She was then sent to a penitentiary. She was at the penitentiary for short time and then had episodic vomiting there. One day after that, she developed an aspiration pneumonia and as a result of that, she was sent to the [facility] Emergency Room and admitted on 02/24/2017. This consultation was requested by Dr. Callahan to evaluate the patient from a neurological point of view to determine what the etiology for her altered mental state is and in addition to determine whether the patient needs to be on an antiseizure medicine or not. The patient herself was unable to give me any history. PAST HISTORY: Significant for depression of severe nature for which she needed electroconvulsive therapy, hypertension, thyroid disease, spinal stenosis, atrial fibrillation, dementia, and left humerus fracture for which she had recent surgery. FAMILY HISTORY: Unavailable in the chart and the patient unable to give me a history. PERSONAL HISTORY: Home: She lives in a penitentiary. Work: Unknown. Habits: Unknown. Present Medications: Include vancomycin, Xopenex, Atrovent, heparin for DVT prophylaxis, Zosyn, and pantoprazole. PHYSICAL EXAMINATION: GENERAL: She is a well-developed but lean lady, lying in bed, in no acute distress. VITAL SIGNS: Pulse 114 per minute, blood pressure 145/77 mmHg, respirations 21 per minute, and temperature 98.4 degrees Fahrenheit. HEAD: Normocephalic and atraumatic. EENT: Examination benign. NECK: No neck rigidity was observed. NEUROLOGIC EXAMINATION: MENTAL STATUS EXAMINATION: She was sleeping when I went to see her. She would not arouse on vocal stimulation, but she did wake up on deep painful stimulation. Once aroused, she was able to maintain arousal. She was mute and did not follow any commands. SPEECH: Could not be tested as she was mute. LANGUAGE: She did not follow simple commands and did not say a single word. CRANIAL NERVE EXAMINATION: II: She did blink to threat. III, IV & : The external ocular movements were full. The pupils were 4 mm in diameter, equal, round, regular, and reactive sluggishly to light. V & VII: The corneal reflexes were present bilaterally, but left-sided reflex was brisker than the right. In addition, she also had flattening of the right nasolabial fold and mild right VII central facial paresis. VIII: She did respond to sounds. IX & X: The gag reflex was present, but significantly diminished. XI: The sternocleidomastoids and trapezii did function. XII: The tongue was in the midline without any fasciculations or atrophy. MOTOR SYSTEM: The tone was normal in the right upper extremity and both lower extremities. It could not be tested adequately in the left upper extremity because the left upper extremity was in an immobilizer. Examination of muscle mass revealed generalized muscle wasting. Examination of power was impossible to perform on individual muscle groups. She responded to deep pain with minimal withdrawal in all four extremities, but would not guest experience specialist my hand. SENSORY EXAMINATION: She responded appropriately to deep pain with a moan and withdrawal. She could not cooperate for other sensory modalities. REFLEXES: 2++ on the right and 1+ on the left at the biceps, triceps, brachioradialis, and knees and 0 at both ankles. The plantar responses were extensor bilaterally. COORDINATION, STANCE & GAIT : Could not be tested. DIAGNOSTIC IMPRESSION: 1. Ms Debi Werner is an 87-year-old, right-handed, lady, who does have past history of depression, hypertension, thyroid disease, spinal stenosis, atrial fibrillation, and dementia, who recently had left humerus fracture that was treated surgically. Following surgery, she became more altered than at baseline. She was then stabilized at [facility] and then sent to a penitentiary. At the penitentiary, she apparently vomited and aspirated and as a result of that had to be readmitted to [facility] for an aspiration pneumonia and sepsis. 2. On neurological examination, at this time, she can be aroused with painful stimuli, but is mute and unable to communicate in any manner. She also has right VII central facial paresis, brisker deep tendon reflexes on the right side, and extensor plantar responses bilaterally. 3. A prolonged electroencephalogram performed for two days at [facility] revealed an encephalopathy of moderate degree and in addition, left temporal interictal discharges, but no ictal phenomena. 4. An MRI scan of the brain performed recently at [facility] revealed atrophy, deep white matter disease, and a left centrum semiovale infarct. 5. Her latest laboratory data revealed a WBC count elevated to 12,500, an anemia with hemoglobin of 9.2 G. The chemistry panel revealed an elevated blood glucose at 141, elevated CK at 166, and lactic acid that was elevated to 7.4 when she came in. The Urinalysis revealed 1+ leukocyte esterase with 2-4 red blood cells and 2-4 white blood cells per high-power field, and a moderate amount of yeast with few bacteria. 6. The patient's history, neurological examination, imaging studies, electroencephalogram findings, and laboratory data are most compatible with an underlying dementia with superimposed toxic encephalopathy related to her pneumonia and sepsis. 7. 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 8. Her altered mental state is related to the ongoing encephalopathy. RECOMMENDATIONS: 1. Agree with management thus far including aggressive treatment of the patient's infectious process and respiratory process. 2. Would continue present therapeutic regimen. 3. Due to the interictal discharges seen on a prior EEG, the patient is at a risk of having seizures and thus should be on an antiseizure medicine. She would benefit from Keppra 500 mg given q.12 hours. 4. The patient will be observed closely and depending on how she fares over the next day or so, further recommendations will be given. Thank you for entrusting me with the care of Ms. Werner. I shall follow her with you. Iglesia Cross M.D., M.S.P.H. DR: JOHANNA JOB#: [id number] JOESPH
[2017-02-26] MEDS: Levalbuterol Inh UD 1.25mg/0.5ml HHN SCH ×6 (02:50→23:50)
[2017-02-26] MEDS: Piperacillin/Tazobactam 3.375 GM in D5W 110 ML IV SCH ×3 (05:42→22:24)
[2017-02-26 07:08] LABS: MEAN CORPUSCULAR HEMOGLOBIN 33.3 PG (27.0-31.0); MEAN CORPUSCULAR HGB CONC 33.8 G/DL (32.0-36.0); MEAN CORPUSCULAR VOLUME 98 FL (80-99); MEAN PLATELET VOLUME 5.6 FL (6.5-10.1); PLATELET COUNT 245 K/UL (150-450); RED BLOOD COUNT 2.62 M/UL (4.20-5.40); RED CELL DISTRIBUTION WIDTH 13.1 % (11.6-14.8); WHITE BLOOD COUNT 13.7 K/UL (4.8-10.8)
[2017-02-26 07:54] LABS: ANION GAP 11 (5-15); CALCIUM 9.4 mg/dL (8.6-10.2); CARBON DIOXIDE 22 mEQ/L (20-30); CHLORIDE 103 mEQ/L (98-107); CREATININE 0.7 mg/dL (0.5-0.9); HEMOLYSIS 4; POTASSIUM 2.8 mEQ/L (3.4-4.9); SODIUM 136 mEQ/L (135-145)
[2017-02-26 08:43] LABS: LYMPHOCYTES % (MANUAL) 3 % (20-45); NEUTROPHILS % (MANUAL) 94 % (45-75); TOTAL CELLS COUNTED 100
[2017-02-26 08:44] LABS: BAND NEUTROPHILS % (MANUAL) 0 % (0-8); BASOPHILS % (MANUAL) 0 % (0-2); EOSINOPHILS % (MANUAL) 0 % (0-3); OVALOCYTES 1+; PLATELET ESTIMATE ADEQUATE; PLATELET MORPHOLOGY NORMAL; SCHISTOCYTES 1+
[2017-02-26] MEDS ORDERED: [UNRECOGNIZED DRUG - OTHER] IV SCH (09:00)
[2017-02-26] MEDS ORDERED: D5 IV SCH ×2 (09:00→11:30)
[2017-02-26] MEDS ORDERED: KCL IV SCH (09:00)
[2017-02-26] MEDS ORDERED: MULTIVITAMIN IV SCH ×2 (09:00→11:30)
[2017-02-26] MEDS: Pantoprazole Inj IVP SCH ×2 (10:09→20:48)
[2017-02-26] MEDS: Heparin 5000 units/ml inj SUBQ SCH ×2 (10:23→20:54)
[2017-02-26] MEDS ORDERED: D5 1/2NS 1000ml IV ONE (10:37)
[2017-02-26] MEDS ORDERED: Tubing IV Secondary IV ONE (10:37)
[2017-02-26] MEDS ORDERED: [UNRECOGNIZED DRUG - OTHER] IV SCH (11:30)
[2017-02-26] MEDS ORDERED: POTASSIUM CHLORIDE IV SCH (11:30)
--- NOTE | 2017-02-26 11:31 | Diagnostic Imaging Report ---
Indication: SOB Technique: One view of the chest Comparison: 02/24/2017 Findings: Interim development of bilateral perihilar interstitial edema. There is suggestion of a small left pleural effusion. The heart size is normal the left shoulder hardware again demonstrated. Old left rib fracture deformities again demonstrated Impression: Bilateral perihilar interstitial edema developing over 2 days Possible small left pleural effusion Other findings as noted
--- NOTE | 2017-02-26 12:07 | Neurology Progress Note ---
Interim History Interim History Interim History Ms. Werner continues to be poorly responsive. There has been no significant improvement in her condition. She can be aroused briefly on painful stimulation but unable to maintain arousal. She is non-verbal. She does not follow any commands. She is breathing rapidly. Review of Systems Neuro Review of Systems Unable to obtain. Objective Physical Exam Last Vital Signs Date Time Temp Pulse Resp B/P (MAP) Pulse Ox O2 Delivery O2 Flow Rate FiO2 02/26/17 11:44 107 24 95 Venturi Mask 8.0 35 02/26/17 11:32 97.1 123/56 Laboratory Tests Test 02/25/17 12:50 02/25/17 16:20 02/26/17 06:25 Lactic Acid Level 3.30 mmol/L (0.66-2.22) H White Blood Count 12.5 K/UL (4.8-10.8) H 13.7 K/UL (4.8-10.8) H Red Blood Count 2.72 M/UL (4.20-5.40) L 2.62 M/UL (4.20-5.40) L Hemoglobin 9.2 G/DL (12.0-16.0) L 8.7 G/DL (12.0-16.0) L Hematocrit 26.9 % (37.0-47.0) #L 25.8 % (37.0-47.0) L Mean Corpuscular Volume 99 FL (80-99) 98 FL (80-99) Mean Corpuscular Hemoglobin 33.9 PG (27.0-31.0) H 33.3 PG (27.0-31.0) H Mean Corpuscular Hemoglobin Concent 34.3 G/DL (32.0-36.0) 33.8 G/DL (32.0-36.0) Red Cell Distribution Width 13.6 % (11.6-14.8) 13.1 % (11.6-14.8) Platelet Count 260 K/UL (150-450) 245 K/UL (150-450) Mean Platelet Volume 5.1 FL (6.5-10.1) L 5.6 FL (6.5-10.1) L Neutrophils (%) (Auto) 92.6 % (45.0-75.0) H % (45.0-75.0) Lymphocytes (%) (Auto) 4.2 % (20.0-45.0) L % (20.0-45.0) Monocytes (%) (Auto) 2.9 % (1.0-10.0) % (1.0-10.0) Eosinophils (%) (Auto) 0.0 % (0.0-3.0) % (0.0-3.0) Basophils (%) (Auto) 0.3 % (0.0-2.0) % (0.0-2.0) Sodium Level 138 mEQ/L (135-145) 136 mEQ/L (135-145) Potassium Level 3.3 mEQ/L (3.4-4.9) L 2.8 mEQ/L (3.4-4.9) L Chloride Level 105 mEQ/L (98-107) 103 mEQ/L (98-107) Carbon Dioxide Level 22 mEQ/L (20-30) 22 mEQ/L (20-30) Anion Gap 11 (5-15) 11 (5-15) Blood Urea Nitrogen 23 mg/dL (7-23) 20 mg/dL (7-23) Creatinine 0.8 mg/dL (0.5-0.9) 0.7 mg/dL (0.5-0.9) Estimat Glomerular Filtration Rate mL/min (>60) mL/min (>60) Glucose Level 141 mg/dL (74-106) #H 146 mg/dL (74-106) H Calcium Level 9.4 mg/dL (8.6-10.2) 9.4 mg/dL (8.6-10.2) Magnesium Level 1.4 mg/dL (1.7-2.5) L 2.6 mg/dL (1.7-2.5) H Total Creatine Kinase 166 U/L (26-140) H Differential Total Cells Counted 100 Neutrophils % (Manual) 94 % (45-75) H Lymphocytes % (Manual) 3 % (20-45) L Monocytes % (Manual) 3 % (1-10) Eosinophils % (Manual) 0 % (0-3) Basophils % (Manual) 0 % (0-2) Band Neutrophils 0 % (0-8) Platelet Estimate Adequate Platelet Morphology Normal Ovalocytes 1+ Schistocytes 1+ Neurologic Exam Objective PHYSICAL EXAMINATION: GENERAL: She is a well-developed but lean lady, lying in bed, in no acute distress. HEAD: Normocephalic and atraumatic. EENT: Examination benign. NECK: No neck rigidity was observed. NEUROLOGIC EXAMINATION: MENTAL STATUS EXAMINATION: She was sleeping when I went to see her. She would not arouse on vocal stimulation, but she did wake up on deep painful stimulation. She was unable to maintain arousal. She was mute and did not follow any commands. SPEECH: Could not be tested as she was mute. LANGUAGE: She did not follow simple commands and did not say a single word. CRANIAL NERVE EXAMINATION: II: She did blink to threat. III, IV & : The external ocular movements were full. The pupils were 4 mm in diameter, equal, round, regular, and reactive sluggishly to light. V & VII: The corneal reflexes were present bilaterally, but left-sided reflex was brisker than the right. In addition, she also had flattening of the right nasolabial fold and mild right VII central facial paresis. VIII: She did respond to sounds. IX & X: The gag reflex was present, but significantly diminished. XI: The sternocleidomastoids and trapezii did function. XII: The tongue was in the midline without any fasciculations or atrophy. MOTOR SYSTEM: The tone was normal in the right upper extremity and both lower extremities. It could not be tested adequately in the left upper extremity because the left upper extremity was in an immobilizer. Examination of muscle mass revealed generalized muscle wasting. Examination of power was impossible to perform on individual muscle groups. 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 SENSORY EXAMINATION: She responded appropriately to deep pain with a moan and withdrawal. She could not cooperate for other sensory modalities. REFLEXES: 2++ on the right and 1+ on the left at the biceps, triceps, brachioradialis, and knees and 0 at both ankles. The plantar responses were extensor bilaterally. COORDINATION, STANCE & GAIT : Could not be tested. Impression/Recommendations Diagnostic Impression 1. Ms Debi Werner is an 87-year-old, right-handed, lady, who does have past history of depression, hypertension, thyroid disease, spinal stenosis , atrial fibrillation, and dementia, who recently had left humerus fracture that was treated surgically. Following surgery, she became more altered than at baseline. She was then stabilized at [facility] and then sent to a jail. At the jail, she apparently vomited and aspirated and as a result of that had to be readmitted to [facility] for an aspiration pneumonia and sepsis. 2. She looks about the same as yesterday and there has been no significant change in her condition. 3. On neurological examination, at this time, she can be aroused with painful stimuli, but is mute and unable to communicate in any manner. She also has right VII central facial paresis, brisker deep tendon reflexes on the right side , and extensor plantar responses bilaterally. 4. A prolonged electroencephalogram performed for two days at [facility] revealed an encephalopathy of moderate degree and in addition, left temporal interictal discharges, but no ictal phenomena. 5. An MRI scan of the brain performed recently at [facility] revealed atrophy , deep white matter disease, and a left centrum semiovale infarct. 6. Her laboratory data on my initial evaluation revealed a WBC count elevated to 12,500, an anemia with hemoglobin of 9.2 G. The chemistry panel revealed an elevated blood glucose at 141, elevated CK at 166, and lactic acid that waselevated to 7.4 when she came in. The Urinalysis revealed 1+ leukocyte esterase with 2-4 red blood cells and 2-4 white blood cells per high-power field , and a moderate amount of yeast with few bacteria. 7. The patient's history, neurological examination, imaging studies, electroencephalogram findings, and laboratory data are most compatible with an underlying dementia with superimposed toxic encephalopathy related to her pneumonia and sepsis. 8. 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 9. Her altered mental state is related to the ongoing encephalopathy. Recommendations 1. Continue present management including aggressive treatment of the patient's infectious process and respiratory process. 2. Continue Keppra 500 mg given q.12 hours. 3. Observe closely. Michael Cross M.D., M.S.P.MICHAEL TRIPATHI Feb 26, 2017 12:07
[2017-02-26] MEDS: Vancomycin 500mg/D5W 110ml IVPB SCH ×2 (12:43)
--- NOTE | 2017-02-26 15:58 | Pulmonology Progress Note ---
Assessment/Plan Assessment/Plan 1. Sepsis due to pneumonia. 2. Pneumonia. 3. Dementia. 4. Lactic acidosis. 5. Left humerus fracture. 6. Status post stroke. 7. Paroxysmal atrial fibrillation. 8. Seizure disorder. 9. Hyperglycemia. looks worse in resp distress disc w Dr Callahan and daughter at bedside the patient is aspirating and unable to handle her secretions she will require a trach for assisted care explained to daughter and she will discuss w rabbi presently full code CXR worse yesterday, repeat cont abx, IV K rx Subjective ROS Limited/Unobtainable: Yes Constitutional: Denies: fever Respiratory: Reports: productive cough, shortness of breath Allergies: Coded Allergies: NO KNOWN ALLERGIES (Unverified Allergy, Unknown, 08/24/15) Objective Last 24 Hour Vital Signs Date Time Temp Pulse Resp B/P (MAP) Pulse Ox O2 Delivery O2 Flow Rate FiO2 02/26/17 15:36 102 24 96 Venturi Mask 8.0 40 02/26/17 15:29 97.3 99 32 121/59 97 Venturi Mask 40 02/26/17 12:00 108 02/26/17 11:44 107 24 95 Venturi Mask 8.0 35 02/26/17 11:32 97.1 105 30 123/56 96 Non-Rebreather 10.0 02/26/17 11:30 106 24 97 Venturi Mask 8.0 40 02/26/17 08:12 97.0 88 30 131/50 98 Non-Rebreather 10.0 02/26/17 08:00 105 02/26/17 07:48 101 24 96 Non-Rebreather 15.0 100 02/26/17 07:39 99 24 96 Non-Rebreather 15.0 100 02/26/17 07:39 99 Non-Rebreather 15.0 100 02/26/17 07:39 Non-Rebreather 15.0 100 02/26/17 05:56 99.0 02/26/17 04:30 100.6 94 20 113/57 99 Non-Rebreather 02/26/17 04:00 94 02/26/17 03:12 91 22 97 Non-Rebreather 15.0 100 02/26/17 02:50 84 25 93 Non-Rebreather 15.0 100 02/26/17 00:35 98.2 86 35 100 Non-Rebreather 15.0 02/26/17 00:00 102 02/26/17 00:00 97.9 88 18 123/54 98 Non-Rebreather 02/25/17 23:45 100 24 96 Non-Rebreather 15.0 100 02/25/17 23:36 97 25 99 Non-Rebreather 15.0 100 02/25/17 20:20 98.2 88 16 120/75 93 Non-Rebreather 02/25/17 20:00 100 02/25/17 19:45 100 23 97 Non-Rebreather 15.0 100 02/25/17 19:31 95 22 95 Non-Rebreather 15.0 100 02/25/17 19:31 Non-Rebreather 15.0 100 02/25/17 19:31 95 Non-Rebreather 15.0 100 02/25/17 16:00 95 02/25/17 15:58 98.4 114 21 145/77 94 Non-Rebreather Intake and Output 02/26/17 02/27/17 19:00 07:00 # Voids 2 # Bowel Movements 1 General Appearance: other - mod resp distress HEENT: atraumatic Respiratory/Chest: rhonchi Cardiovascular: normal rate Abdomen: soft, non tender, no organomegaly Extremities: no edema Musculoskeletal: atrophy Microbiology Date/Time Source Procedure Growth Status 02/24/17 05:00 Blood Blood Culture - Preliminary NO GROWTH AFTER 48 HOURS Resulted 02/24/17 04:58 Blood Blood Culture - Preliminary NO GROWTH AFTER 48 HOURS Resulted 02/24/17 09:20 Nasal Nares MRSA Culture - Final NO METHICILLIN RESISTANT STAPH AUREUS... Complete 02/24/17 05:00 Nasal Nares MRSA Culture - Final NO METHICILLIN RESISTANT STAPH AUREUS... Complete 02/24/17 06:22 Urine,Clean Catch Urine Culture - Preliminary Yeast Species Resulted 02/24/17 09:20 Rectum VRE Culture - Final NO VANCOMYCIN RESISTANT ENTEROCOCCUS ... Complete 02/24/17 05:00 Rectum VRE Culture - Final NO VANCOMYCIN RESISTANT ENTEROCOCCUS ... Complete Laboratory Tests 02/25/17 16:20: White Blood Count 12.5H, Red Blood Count 2.72L, Hemoglobin 9.2L, Hematocrit 26.9 #L, Mean Corpuscular Volume 99, Mean Corpuscular Hemoglobin 33.9H, Mean Corpuscular Hemoglobin Concent 34.3, Red Cell Distribution Width 13.6, Platelet Count 260, Mean Platelet Volume 5.1L, Neutrophils (%) (Auto) 92.6H, Lymphocytes (%) (Auto) 4.2L, Monocytes (%) (Auto) 2.9, Eosinophils (%) (Auto) 0.0, Basophils (%) (Auto) 0.3, Sodium Level 138, Potassium Level 3.3L, Chloride Level 105, Carbon Dioxide Level 22, Anion Gap 11, Blood Urea Nitrogen 23, Creatinine 0.8, Estimat Glomerular Filtration Rate , Glucose Level 141#H, Calcium Level 9.4, Magnesium Level 1.4L, Total Creatine Kinase 166H 02/26/17 06:25: White Blood Count 13.7H, Red Blood Count 2.62L, Hemoglobin 8.7L, Hematocrit 25.8L, Mean Corpuscular Volume 98, Mean Corpuscular Hemoglobin 33.3H, Mean Corpuscular Hemoglobin Concent 33.8, Red Cell Distribution Width 13.1, Platelet Count 245, Mean Platelet Volume 5.6L, Neutrophils (%) (Auto) , Lymphocytes (%) ( Auto) , Monocytes (%) (Auto) , Eosinophils (%) (Auto) , Basophils (%) (Auto) , Sodium Level 136, Potassium Level 2.8L, Chloride Level 103, Carbon Dioxide Level 22, Anion Gap 11, Blood Urea Nitrogen 20, Creatinine 0.7, Estimat Glomerular Filtration Rate , Glucose Level 146H, Calcium Level 9.4, Magnesium Level 2.6H, Differential Total Cells Counted 100, Neutrophils % (Manual) 94H, Lymphocytes % (Manual) 3L, Monocytes % (Manual) 3, Eosinophils % (Manual) 0, Basophils % (Manual) 0, Band Neutrophils 0, Platelet Estimate Adequate, Platelet Morphology Normal, Ovalocytes 1+, Schistocytes 1+ Current Medications Medications (Trade) Dose Ordered Sig/Autumn Route PRN Reason Start Time Stop Time Status Last Admin Dose Admin Dextrose/ Electrolytes 1,000 ml @ 75 mls/hr [id number] IV 02/26/17 22:00 03/28/17 21:59 Heparin Sodium (Porcine) (Heparin 5000 units/ml) 5,000 units Q12H SUBQ 02/24/17 21:00 03/26/17 20:59 02/26/17 10:23 Ipratropium [place] (Atrovent) 500 mcg Q4H PRN HHN Shortness of Breath 02/24/17 21:45 03/01/17 21:44 02/25/17 03:39 Levalbuterol HCl (Xopenex) 1.25 mg Q4HRT HHN 02/25/17 03:00 03/02/17 02:59 02/26/17 15:35 Multivitamins 10 ml/Dextrose/ Electrolytes 1,010 ml @ 75 mls/hr Q24H IV 02/27/17 09:00 03/29/17 08:59 Pantoprazole (Protonix) 40 mg EVERY 12 HOURS IVP 02/24/17 12:00 03/26/17 11:59 02/26/17 10:09 Piperacillin Sod/ Tazobactam Sod 3.375 gm/Dextrose 110 ml @ 27.5 mls/hr EVERY 8 HOURS IV 02/24/17 14:00 03/03/17 13:59 02/26/17 14:27 Vancomycin HCl (Vanco rx to dose) 1 ea DAILY PRN MISC PER RX PROTOCOL 02/24/17 09:00 03/26/17 08:59 Vancomycin HCl 500 mg/Dextrose 110 ml @ 110 mls/hr Q24H IVPB 02/25/17 12:00 03/02/17 11:59 02/26/17 12:43 PAULINA ANAND Feb 26, 2017 15:58
[2017-02-26] MEDS ORDERED: D5 1/2NS w/KCl 40meq 1000ml 1,000 ML IV SCH (17:00)
[2017-02-26] MEDS: Ipratropium 0.02% Inh Soln 2.5ml UD HHN PRN ×2 (17:36→23:50)
[2017-02-26 18:02] LABS: ABG ALLEN TEST POSITIVE; ABG BASE EXCESS -0.9; ABG PCO2 33.6 mmHg (35.0-45.0)
--- NOTE | 2017-02-26 18:54 | Geriatric Progress Note ---
Assessment/Plan Problems: (1) Dementia (2) Depression, major, recurrent, severe with psychosis (3) Dysphagia due to recent cerebrovascular accident (CVA) (4) Abnormal EKG (5) Pneumonia (6) Severe sepsis (7) Respiratory distress Assessment/Plan More congested than yesterday. Agree that respiratory failure with vent/trach likely, and may represent fairly ineffective therapy, although family's samaritan belief may require. Discussed with Dr. Cross. Given sedation, increased congestion, will hold Keppra , and check EEG for degree of encephalopathy. Decrease IV rate slightly to decrease risk of volume component. One dose of Diflucan fo yeast in urine, though there is no indication of fungiemia. Reviewed in detail with dtr. She will discuss with and rabbi. Continue other tx. Discussed with: family, hospital staff Subjective Interval Events Patient lethargic with no definite response. On Venti-mask with increased congestion. Discussed with Dr. Carranza earlier, who feels patient has recurrent aspiration leading to the worsening respiratory status. He discussed status with dtr., feeling that patient will eventually require trach/vent if all aggressive measures are required. Seen by Dr. Cross, who initiated IV Keppra because of frequent inter ictal discharges. ABG done know with adequate O2 sat, mild resp alkalosis with essentially resolution of prior metabolic acidosis. Repeat CXR shows perihilar prominence and L basilar opacity. Subjective Does not respond. Geriatric Geriatric Last 24 Hour Vital Signs Date Time Temp Pulse Resp B/P (MAP) Pulse Ox O2 Delivery O2 Flow Rate FiO2 02/26/17 15:45 104 24 93 Venturi Mask 8.0 35 02/26/17 15:36 102 24 96 Venturi Mask 8.0 40 02/26/17 15:29 97.3 99 32 121/59 97 Venturi Mask 40 02/26/17 12:00 108 02/26/17 11:44 107 24 95 Venturi Mask 8.0 35 02/26/17 11:32 97.1 105 30 123/56 96 Non-Rebreather 10.0 02/26/17 11:30 106 24 97 Venturi Mask 8.0 40 02/26/17 08:12 97.0 88 30 131/50 98 Non-Rebreather 10.0 02/26/17 08:00 105 02/26/17 07:48 101 24 96 Non-Rebreather 15.0 100 02/26/17 07:39 99 24 96 Non-Rebreather 15.0 100 02/26/17 07:39 99 Non-Rebreather 15.0 100 02/26/17 07:39 Non-Rebreather 15.0 100 02/26/17 05:56 99.0 02/26/17 04:30 100.6 94 20 113/57 99 Non-Rebreather 02/26/17 04:00 94 02/26/17 03:12 91 22 97 Non-Rebreather 15.0 100 02/26/17 02:50 84 25 93 Non-Rebreather 15.0 100 02/26/17 00:35 98.2 86 35 100 Non-Rebreather 15.0 02/26/17 00:00 102 02/26/17 00:00 97.9 88 18 123/54 98 Non-Rebreather 02/25/17 23:45 100 24 96 Non-Rebreather 15.0 100 02/25/17 23:36 97 25 99 Non-Rebreather 15.0 100 02/25/17 20:20 98.2 88 16 120/75 93 Non-Rebreather 02/25/17 20:00 100 02/25/17 19:45 100 23 97 Non-Rebreather 15.0 100 02/25/17 19:31 95 22 95 Non-Rebreather 15.0 100 02/25/17 19:31 Non-Rebreather 15.0 100 02/25/17 19:31 95 Non-Rebreather 15.0 100 Intake and Output 02/26/17 02/27/17 19:00 07:00 # Voids 3 # Bowel Movements 1 Laboratory Tests Test 02/26/17 06:25 02/26/17 17:55 White Blood Count 13.7 K/UL (4.8-10.8) H Red Blood Count 2.62 M/UL (4.20-5.40) L Hemoglobin 8.7 G/DL (12.0-16.0) L Hematocrit 25.8 % (37.0-47.0) L Mean Corpuscular Volume 98 FL (80-99) Mean Corpuscular Hemoglobin 33.3 PG (27.0-31.0) H Mean Corpuscular Hemoglobin Concent 33.8 G/DL (32.0-36.0) Red Cell Distribution Width 13.1 % (11.6-14.8) Platelet Count 245 K/UL (150-450) Mean Platelet Volume 5.6 FL (6.5-10.1) L Neutrophils (%) (Auto) % (45.0-75.0) Lymphocytes (%) (Auto) % (20.0-45.0) Monocytes (%) (Auto) % (1.0-10.0) Eosinophils (%) (Auto) % (0.0-3.0) Basophils (%) (Auto) % (0.0-2.0) Differential Total Cells Counted 100 Neutrophils % (Manual) 94 % (45-75) H Lymphocytes % (Manual) 3 % (20-45) L Monocytes % (Manual) 3 % (1-10) Eosinophils % (Manual) 0 % (0-3) Basophils % (Manual) 0 % (0-2) Band Neutrophils 0 % (0-8) Platelet Estimate Adequate Platelet Morphology Normal Ovalocytes 1+ Schistocytes 1+ Sodium Level 136 mEQ/L (135-145) Potassium Level 2.8 mEQ/L (3.4-4.9) L Chloride Level 103 mEQ/L (98-107) Carbon Dioxide Level 22 mEQ/L (20-30) Anion Gap 11 (5-15) Blood Urea Nitrogen 20 mg/dL (7-23) Creatinine 0.7 mg/dL (0.5-0.9) Estimat Glomerular Filtration Rate mL/min (>60) Glucose Level 146 mg/dL (74-106) H Calcium Level 9.4 mg/dL (8.6-10.2) Magnesium Level 2.6 mg/dL (1.7-2.5) H Arterial Blood pH 7.448 (7.350-7.450) Arterial Blood Partial Pressure CO2 33.6 mmHg (35.0-45.0) L Arterial Blood Partial Pressure O2 110.0 mmHg (75.0-100.0) H Arterial Blood HCO3 22.7 mmol/L (22.0-26.0) Arterial Blood Oxygen Saturation 97.5 % (92.0-98.0) Arterial Blood Base Excess -0.9 Wesley Test Positive Current Medications Medications (Trade) Dose Ordered Sig/Autumn Route PRN Reason Start Time Stop Time Status Last Admin Dose Admin Dextrose/ Electrolytes 1,000 ml @ 75 mls/hr [id number] IV 02/26/17 17:00 03/28/17 16:59 02/26/17 17:02 Heparin Sodium (Porcine) (Heparin 5000 units/ml) 5,000 units Q12H SUBQ 02/24/17 21:00 03/26/17 20:59 02/26/17 10:23 Ipratropium [place] (Atrovent) 500 mcg Q4H PRN N Shortness of Breath 02/24/17 21:45 03/01/17 21:44 02/26/17 17:36 Levalbuterol HCl (Xopenex) 1.25 mg Q4HRT HHN 02/25/17 03:00 03/02/17 02:59 02/26/17 15:35 Multivitamins 10 ml/Dextrose/ Electrolytes 1,010 ml @ 75 mls/hr Q24H IV 02/27/17 09:00 03/29/17 08:59 Pantoprazole (Protonix) 40 mg EVERY 12 HOURS IVP 02/24/17 12:00 03/26/17 11:59 02/26/17 10:09 Piperacillin Sod/ Tazobactam Sod 3.375 gm/Dextrose 110 ml @ 27.5 mls/hr EVERY 8 HOURS IV 02/24/17 14:00 03/03/17 13:59 02/26/17 14:27 Vancomycin HCl (Vanco rx to dose) 1 ea DAILY PRN MISC PER RX PROTOCOL 02/24/17 09:00 03/26/17 08:59 Vancomycin HCl 500 mg/Dextrose 110 ml @ 110 mls/hr Q24H IVPB 02/25/17 12:00 03/02/17 11:59 02/26/17 12:43 Height (Feet): 5 Height (Inches): 2.00 Weight (Pounds): 100 General Appearance: other - unresponsive with audible airway congestion Head: normocephalic, atraumatic Respiratory: other - loud rhonchi, upper airway sounds Cardiovascular: regular rate, rhythm Gastrointestinal: normal bowel sounds, non tender, soft, no mass, no organomegaly, non-distended Edema: no edema noted Generalized Neurologic: no new focality GEETA WOOD Feb 26, 2017 18:54
[2017-02-26] MEDS ORDERED: D5 1/2NS w/KCl 30mEq 1000ml 1,000 ML IV SCH (22:00)
[2017-02-27 00:04] VITALS: BP 112/65
[2017-02-27] MEDS: Levalbuterol Inh UD 1.25mg/0.5ml HHN SCH ×6 (03:31→23:15)
[2017-02-27] MEDS: Ipratropium 0.02% Inh Soln 2.5ml UD HHN PRN ×6 (03:31→23:15)
[2017-02-27 03:45] VITALS: BP 108/57
[2017-02-27] MEDS: Piperacillin/Tazobactam 3.375 GM in D5W 110 ML IV SCH ×3 (05:44→21:39)
[2017-02-27 07:43] LABS: MEAN CORPUSCULAR HEMOGLOBIN 35.6 PG (27.0-31.0); MEAN CORPUSCULAR HGB CONC 35.5 G/DL (32.0-36.0); MEAN CORPUSCULAR VOLUME 100 FL (80-99); MEAN PLATELET VOLUME 5.7 FL (6.5-10.1); PLATELET COUNT 245 K/UL (150-450); RED BLOOD COUNT 2.51 M/UL (4.20-5.40); RED CELL DISTRIBUTION WIDTH 13.5 % (11.6-14.8); WHITE BLOOD COUNT 15.2 K/UL (4.8-10.8)
[2017-02-27 08:00] VITALS: BP 147/70
[2017-02-27 09:05] LABS: BAND NEUTROPHILS % (MANUAL) 0 % (0-8); BASOPHILS % (MANUAL) 0 % (0-2); EOSINOPHILS % (MANUAL) 1 % (0-3); LYMPHOCYTES % (MANUAL) 12 % (20-45); NEUTROPHILS % (MANUAL) 85 % (45-75); PLATELET ESTIMATE ADEQUATE; PLATELET MORPHOLOGY NORMAL; TOTAL CELLS COUNTED 100
[2017-02-27 09:06] LABS: BURR CELLS 1+
--- NOTE | 2017-02-27 09:06 | Pulmonology Progress Note ---
Assessment/Plan Assessment/Plan 1. Sepsis due to pneumonia. 2. Pneumonia. 3. Dementia. 4. Lactic acidosis. 5. Left humerus fracture. 6. Status post stroke. 7. Paroxysmal atrial fibrillation. 8. Seizure disorder. 9. Hyperglycemia. ABG ok await family decision re code status, comfort care recommendation presently full code cont abx, IV Subjective ROS Limited/Unobtainable: Yes Constitutional: Denies: fever Respiratory: Reports: shortness of breath Allergies: Coded Allergies: NO KNOWN ALLERGIES (Unverified Allergy, Unknown, 08/24/15) Objective Last 24 Hour Vital Signs Date Time Temp Pulse Resp B/P (MAP) Pulse Ox O2 Delivery O2 Flow Rate FiO2 02/27/17 07:32 96 26 74 Venturi Mask 10.0 40 02/27/17 07:30 Venturi Mask 10.0 40 02/27/17 07:30 93 Venturi Mask 10.0 40 02/27/17 07:25 79 20 93 Venturi Mask 10.0 40 02/27/17 04:00 100 02/27/17 03:46 105 28 95 Venturi Mask 8.0 40 02/27/17 03:45 97.5 102 36 108/57 94 Venturi Mask 8.0 40 02/27/17 03:36 103 25 93 Venturi Mask 8.0 40 02/27/17 00:04 97.9 108 32 112/65 94 Venturi Mask 15.0 02/27/17 00:00 98 02/26/17 23:59 106 22 98 Venturi Mask 10.0 40 02/26/17 23:49 107 24 97 Venturi Mask 10.0 40 02/26/17 20:18 95 Venturi Mask 10.0 40 02/26/17 20:18 Venturi Mask 10.0 40 02/26/17 20:10 98 22 98 Venturi Mask 10.0 40 02/26/17 20:00 100 02/26/17 20:00 94 20 96 Venturi Mask 10.0 40 02/26/17 19:20 97.7 115 24 124/62 92 Venturi Mask 15.0 02/26/17 16:00 107 02/26/17 15:45 104 24 93 Venturi Mask 8.0 35 02/26/17 15:36 102 24 96 Venturi Mask 8.0 40 02/26/17 15:29 97.3 99 32 121/59 97 Venturi Mask 40 02/26/17 12:00 108 02/26/17 11:44 107 24 95 Venturi Mask 8.0 35 02/26/17 11:32 97.1 105 30 123/56 96 Non-Rebreather 10.0 02/26/17 11:30 106 24 97 Venturi Mask 8.0 40 General Appearance: other - mild resp distress Respiratory/Chest: respiratory distress, accessory muscle use, rhonchi Cardiovascular: normal rate Microbiology Date/Time Source Procedure Growth Status 02/24/17 09:20 Nasal Nares MRSA Culture - Final NO METHICILLIN RESISTANT STAPH AUREUS... Complete 02/24/17 09:20 Rectum VRE Culture - Final NO VANCOMYCIN RESISTANT ENTEROCOCCUS ... Complete Laboratory Tests 02/26/17 17:55: Arterial Blood pH 7.448, Arterial Blood Partial Pressure CO2 33.6L, Arterial Blood Partial Pressure O2 110.0H, Arterial Blood HCO3 22.7, Arterial Blood Oxygen Saturation 97.5, Arterial Blood Base Excess -0.9, Wesley Test Positive 02/27/17 05:10: White Blood Count 15.2H, Red Blood Count 2.51L, Hemoglobin 8.9L, Hematocrit 25.2L, Mean Corpuscular Volume 100H, Mean Corpuscular Hemoglobin 35.6H, Mean Corpuscular Hemoglobin Concent 35.5, Red Cell Distribution Width 13.5, Platelet Count 245, Mean Platelet Volume 5.7L, Neutrophils (%) (Auto) , Lymphocytes (%) ( Auto) , Monocytes (%) (Auto) , Eosinophils (%) (Auto) , Basophils (%) (Auto) , Neutrophils % (Manual) [Pending], Lymphocytes % (Manual) [Pending], Platelet Estimate [Pending], Platelet Morphology [Pending] Current Medications Medications (Trade) Dose Ordered Sig/Autumn Route PRN Reason Start Time Stop Time Status Last Admin Dose Admin Dextrose/ Electrolytes 1,000 ml @ 60 mls/hr [id number] IV 02/27/17 20:00 03/29/17 19:59 Heparin Sodium (Porcine) (Heparin 5000 units/ml) 5,000 units Q12H SUBQ 02/24/17 21:00 03/26/17 20:59 02/26/17 20:54 Ipratropium [place] (Atrovent) 500 mcg Q4H PRN HHN Shortness of Breath 02/24/17 21:45 03/01/17 21:44 02/27/17 07:33 Levalbuterol HCl (Xopenex) 1.25 mg Q4HRT HHN 02/25/17 03:00 03/02/17 02:59 02/27/17 07:00 Multivitamins 10 ml/Dextrose/ Electrolytes 1,010 ml @ 75 mls/hr Q24H IV 02/27/17 09:00 03/29/17 08:59 Pantoprazole (Protonix) 40 mg EVERY 12 HOURS IVP 02/24/17 12:00 03/26/17 11:59 02/26/17 20:48 Piperacillin Sod/ Tazobactam Sod 3.375 gm/Dextrose 110 ml @ 27.5 mls/hr EVERY 8 HOURS IV 02/24/17 14:00 03/03/17 13:59 02/27/17 05:44 Vancomycin HCl (Vanco rx to dose) 1 ea DAILY PRN MISC PER RX PROTOCOL 02/24/17 09:00 03/26/17 08:59 Vancomycin HCl 500 mg/Dextrose 110 ml @ 110 mls/hr Q24H IVPB 02/25/17 12:00 03/02/17 11:59 02/26/17 12:43 PAULINA ANAND Feb 27, 2017 09:06
[2017-02-27] MEDS: D5 IV SCH (09:43)
[2017-02-27] MEDS: Heparin 5000 units/ml inj SUBQ SCH ×2 (09:43→20:27)
[2017-02-27] MEDS: [UNRECOGNIZED DRUG - OTHER] IV SCH (09:43)
[2017-02-27] MEDS: KCL IV SCH (09:43)
[2017-02-27] MEDS: MULTIVITAMIN IV SCH (09:43)
[2017-02-27] MEDS: Pantoprazole Inj IVP SCH ×2 (09:44→20:23)
--- NOTE | 2017-02-27 09:52 | Diagnostic Imaging Report ---
Indication: SOB Technique: One view of the chest Comparison: 9 hours earlier Findings: Bilateral interstitial congestive changes persists, probably not significantly changed allowing for differences in exposure technique. Left-sided pleural effusion persists. The heart is mildly enlarged. Multiple left rib fracture deformities are again demonstrated. There are cholecystectomy clips. Left humeral hardware again demonstrated. Findings are unchanged Impression: Unchanged, over one day, findings as above.
[2017-02-27 12:00] VITALS: BP 124/91
[2017-02-27] MEDS: Vancomycin 500mg/D5W 110ml IVPB SCH ×2 (12:02)
[2017-02-27 16:00] VITALS: BP 131/76
--- NOTE | 2017-02-27 16:25 | Neurology Progress Note ---
Interim History Interim History Interim History Ms. Werner continues to be poorly responsive. She can be aroused briefly on painful stimulation and is able to maintain arousal for less than a minute. She however is non-verbal. She does not follow any commands. She is breathing more comfortably. Review of Systems Neuro Review of Systems Unable to obtain. Objective Physical Exam Last Vital Signs Date Time Temp Pulse Resp B/P (MAP) Pulse Ox O2 Delivery O2 Flow Rate FiO2 02/27/17 15:28 104 20 97 Venturi Mask 10.0 40 02/27/17 12:00 98.7 124/91 Laboratory Tests Test 02/26/17 17:55 02/27/17 05:10 02/27/17 11:00 Arterial Blood pH 7.448 (7.350-7.450) Arterial Blood Partial Pressure CO2 33.6 mmHg (35.0-45.0) L Arterial Blood Partial Pressure O2 110.0 mmHg (75.0-100.0) H Arterial Blood HCO3 22.7 mmol/L (22.0-26.0) Arterial Blood Oxygen Saturation 97.5 % (92.0-98.0) Arterial Blood Base Excess -0.9 Wesley Test Positive White Blood Count 15.2 K/UL (4.8-10.8) H Red Blood Count 2.51 M/UL (4.20-5.40) L Hemoglobin 8.9 G/DL (12.0-16.0) L Hematocrit 25.2 % (37.0-47.0) L Mean Corpuscular Volume 100 FL (80-99) H Mean Corpuscular Hemoglobin 35.6 PG (27.0-31.0) H Mean Corpuscular Hemoglobin Concent 35.5 G/DL (32.0-36.0) Red Cell Distribution Width 13.5 % (11.6-14.8) Platelet Count 245 K/UL (150-450) Mean Platelet Volume 5.7 FL (6.5-10.1) L Neutrophils (%) (Auto) % (45.0-75.0) Lymphocytes (%) (Auto) % (20.0-45.0) Monocytes (%) (Auto) % (1.0-10.0) Eosinophils (%) (Auto) % (0.0-3.0) Basophils (%) (Auto) % (0.0-2.0) Differential Total Cells Counted 100 Neutrophils % (Manual) 85 % (45-75) H Lymphocytes % (Manual) 12 % (20-45) L Monocytes % (Manual) 2 % (1-10) Eosinophils % (Manual) 1 % (0-3) Basophils % (Manual) 0 % (0-2) Band Neutrophils 0 % (0-8) Platelet Estimate Adequate Platelet Morphology Normal [place] Cells 1+ Vancomycin Level Trough 5.3 ug/mL (5.0-12.0) Neurologic Exam Objective PHYSICAL EXAMINATION: GENERAL: She is a well-developed but lean lady, lying in bed, in no acute distress. HEAD: Normocephalic and atraumatic. EENT: Examination benign. NECK: No neck rigidity was observed. NEUROLOGIC EXAMINATION: MENTAL STATUS EXAMINATION: She was sleeping when I went to see her. She would not arouse on vocal stimulation, but she did wake up on deep painful stimulation. She was able to maintain arousal for less than a minute. She was mute and did not follow any commands. SPEECH: Could not be tested as she was mute. LANGUAGE: She did not follow simple commands and did not say a single word. CRANIAL NERVE EXAMINATION: II: She did blink to threat. III, IV & : The external ocular movements were full. The pupils were 4 mm in diameter, equal, round, regular, and reactive sluggishly to light. V & VII: The corneal reflexes were present bilaterally, but left-sided reflex was brisker than the right. In addition, she also had flattening of the right nasolabial fold and mild right VII central facial paresis. VIII: She did respond to sounds. IX & X: The gag reflex was present, but significantly diminished. XI: The sternocleidomastoids and trapezii did function. XII: The tongue was in the midline without any fasciculations or atrophy. MOTOR SYSTEM: The tone was normal in the right upper extremity and both lower extremities. It could not be tested adequately in the left upper extremity because the left upper extremity was in an immobilizer. Examination of muscle mass revealed generalized muscle wasting. Examination of power was impossible to perform on individual muscle groups. 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 SENSORY EXAMINATION: She responded appropriately to deep pain with a moan and withdrawal. She could not cooperate for other sensory modalities. REFLEXES: 2++ on the right and 1+ on the left at the biceps, triceps, brachioradialis, and knees and 0 at both ankles. The plantar responses were extensor bilaterally. COORDINATION, STANCE & GAIT : Could not be tested. Impression/Recommendations Diagnostic Impression 1. Ms Debi Werner is an 87-year-old, right-handed, lady, who does have past history of depression, hypertension, thyroid disease, spinal stenosis , atrial fibrillation, and dementia, who recently had left humerus fracture that was treated surgically. Following surgery, she became more altered than at baseline. She was then stabilized at [facility] and then sent to a senior living. At the senior living, she apparently vomited and aspirated and as a result of that had to be readmitted to [facility] for an aspiration pneumonia and sepsis. 2. She looks minimally better today. She is able to maintain arousal for less than a minute today. 3. On neurological examination, at this time, she can be aroused with painful stimuli, but is mute and unable to communicate in any manner. She also has right VII central facial paresis, brisker deep tendon reflexes on the right side , and extensor plantar responses bilaterally. 4. A prolonged electroencephalogram performed for two days at [facility] revealed an encephalopathy of moderate degree and in addition, left temporal interictal discharges, but no ictal phenomena. 5. An MRI scan of the brain performed recently at [facility] revealed atrophy , deep white matter disease, and a left centrum semiovale infarct. 6. Her laboratory data on my initial evaluation revealed a WBC count elevated to 12,500, an anemia with hemoglobin of 9.2 G. The chemistry panel revealed an elevated blood glucose at 141, elevated CK at 166, and lactic acid that waselevated to 7.4 when she came in. The Urinalysis revealed 1+ leukocyte esterase with 2-4 red blood cells and 2-4 white blood cells per high-power field , and a moderate amount of yeast with few bacteria. 7. The patient's history, neurological examination, imaging studies, electroencephalogram findings, and laboratory data are most compatible with an underlying dementia with superimposed toxic encephalopathy related to her pneumonia and sepsis. 8. 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 9. Her altered mental state is related to the ongoing encephalopathy. Recommendations 1. Continue present management including aggressive treatment of the patient's infectious process and respiratory process. 2. Discussed with Dr. Callahan and decision made to watch her off anti-seizure medicines. 3. Observe closely. Michael Cross M.D., M.S.P.[place]. MICHAEL CROSS Feb 27, 2017 16:25
--- NOTE | 2017-02-27 17:31 | Geriatric Progress Note ---
Assessment/Plan Problems: (1) Dementia (2) Depression, major, recurrent, severe with psychosis (3) Dysphagia due to recent cerebrovascular accident (CVA) (4) Abnormal EKG (5) Pneumonia (6) Severe sepsis (7) Respiratory distress Assessment/Plan Minimally more alert off Keppra. Reviewed with dtr, who concurs. Despite slightly increase wbc, obvious pulmonary congestion, about the same on present tx. Pulmonary antibiotic tx as per Dr. Carranza. If patient does not improve in next few days, may need elective trach for jail airway management. Dr. Garza to evaluate re PEG. C glabrata in urine. Given one dose of Diflucan. Will not tx further for now, but consider repeat urine in several days. EEG pending re level of encephalopathy vs. psychotic depression. Repeat labs. Discussed with: family, hospital staff Subjective Interval Events Patient minimally more alert than yesterday. Still essentially no response to stimuli. Discussed with Dr. Cross who agrees. Family has indicated that they feel compelled to use all tx modalities despite poor prognosis. Dr. Carranza spoke with staff and indicated he would speak further with dtr. Currently slightly less congested than yesterday, but still with coarse rhonchi. CXR without change. Labs with further increase in wbc. Otherwise no significant change. Discussed with dtr, she confirmed wanting active therapy. Dr. Garza called to evaluate re GT placement. No overt distress. Staff reports no other change. Subjective Does not respond. Geriatric Geriatric Last 24 Hour Vital Signs Date Time Temp Pulse Resp B/P (MAP) Pulse Ox O2 Delivery O2 Flow Rate FiO2 02/27/17 16:00 99.4 116 22 131/76 94 Simple Mask 02/27/17 16:00 96 02/27/17 15:28 104 20 97 Venturi Mask 10.0 40 02/27/17 15:23 105 20 98 Venturi Mask 10.0 40 02/27/17 12:00 98.7 139 24 124/91 96 Simple Mask 02/27/17 12:00 104 02/27/17 11:27 115 20 95 Venturi Mask 10.0 40 02/27/17 11:20 81 18 97 Venturi Mask 10.0 40 02/27/17 08:00 98.5 90 26 147/70 100 Simple Mask 02/27/17 08:00 102 02/27/17 07:32 96 26 74 Venturi Mask 10.0 40 02/27/17 07:30 Venturi Mask 10.0 40 02/27/17 07:30 93 Venturi Mask 10.0 40 02/27/17 07:25 79 20 93 Venturi Mask 10.0 40 02/27/17 04:00 100 02/27/17 03:46 105 28 95 Venturi Mask 8.0 40 02/27/17 03:45 97.5 102 36 108/57 94 Venturi Mask 8.0 40 02/27/17 03:36 103 25 93 Venturi Mask 8.0 40 02/27/17 00:04 97.9 108 32 112/65 94 Venturi Mask 15.0 02/27/17 00:00 98 02/26/17 23:59 106 22 98 Venturi Mask 10.0 40 02/26/17 23:49 107 24 97 Venturi Mask 10.0 40 02/26/17 20:18 95 Venturi Mask 10.0 40 02/26/17 20:18 Venturi Mask 10.0 40 02/26/17 20:10 98 22 98 Venturi Mask 10.0 40 02/26/17 20:00 100 02/26/17 20:00 94 20 96 Venturi Mask 10.0 40 02/26/17 19:20 97.7 115 24 124/62 92 Venturi Mask 15.0 Intake and Output 02/27/17 02/28/17 19:00 07:00 Intake Total 636.708 ml Balance 636.708 ml Intake IV Total 636.708 ml # Voids 3 Laboratory Tests Test 02/26/17 17:55 02/27/17 05:10 02/27/17 11:00 Arterial Blood pH 7.448 (7.350-7.450) Arterial Blood Partial Pressure CO2 33.6 mmHg (35.0-45.0) L Arterial Blood Partial Pressure O2 110.0 mmHg (75.0-100.0) H Arterial Blood HCO3 22.7 mmol/L (22.0-26.0) Arterial Blood Oxygen Saturation 97.5 % (92.0-98.0) Arterial Blood Base Excess -0.9 Wesley Test Positive White Blood Count 15.2 K/UL (4.8-10.8) H Red Blood Count 2.51 M/UL (4.20-5.40) L Hemoglobin 8.9 G/DL (12.0-16.0) L Hematocrit 25.2 % (37.0-47.0) L Mean Corpuscular Volume 100 FL (80-99) H Mean Corpuscular Hemoglobin 35.6 PG (27.0-31.0) H Mean Corpuscular Hemoglobin Concent 35.5 G/DL (32.0-36.0) Red Cell Distribution Width 13.5 % (11.6-14.8) Platelet Count 245 K/UL (150-450) Mean Platelet Volume 5.7 FL (6.5-10.1) L Neutrophils (%) (Auto) % (45.0-75.0) Lymphocytes (%) (Auto) % (20.0-45.0) Monocytes (%) (Auto) % (1.0-10.0) Eosinophils (%) (Auto) % (0.0-3.0) Basophils (%) (Auto) % (0.0-2.0) Differential Total Cells Counted 100 Neutrophils % (Manual) 85 % (45-75) H Lymphocytes % (Manual) 12 % (20-45) L Monocytes % (Manual) 2 % (1-10) Eosinophils % (Manual) 1 % (0-3) Basophils % (Manual) 0 % (0-2) Band Neutrophils 0 % (0-8) Platelet Estimate Adequate Platelet Morphology Normal [place] Cells 1+ Vancomycin Level Trough 5.3 ug/mL (5.0-12.0) Current Medications Medications (Trade) Dose Ordered Sig/Autumn Route PRN Reason Start Time Stop Time Status Last Admin Dose Admin Dextrose/ Electrolytes 1,000 ml @ 60 mls/hr [id number] IV 02/27/17 20:00 03/29/17 19:59 Heparin Sodium (Porcine) (Heparin 5000 units/ml) 5,000 units Q12H SUBQ 02/24/17 21:00 03/26/17 20:59 02/27/17 09:43 Ipratropium [place] (Atrovent) 500 mcg Q4H PRN HHN Shortness of Breath 02/24/17 21:45 03/01/17 21:44 02/27/17 15:23 Levalbuterol HCl (Xopenex) 1.25 mg Q4HRT HHN 02/25/17 03:00 03/02/17 02:59 02/27/17 15:23 Multivitamins 10 ml/Dextrose/ Electrolytes 1,010 ml @ 75 mls/hr Q24H IV 02/27/17 09:00 03/29/17 08:59 02/27/17 09:43 Pantoprazole (Protonix) 40 mg EVERY 12 HOURS IVP 02/24/17 12:00 03/26/17 11:59 02/27/17 09:44 Piperacillin Sod/ Tazobactam Sod 3.375 gm/Dextrose 110 ml @ 27.5 mls/hr EVERY 8 HOURS IV 02/24/17 14:00 03/03/17 13:59 02/27/17 14:11 Vancomycin HCl (Vanco rx to dose) 1 ea DAILY PRN MISC PER RX PROTOCOL 02/24/17 09:00 03/26/17 08:59 Vancomycin/Sodium Chloride 250 ml @ 166.667 mls/hr Q24H IVPB 02/28/17 09:00 03/05/17 08:59 Height (Feet): 5 Height (Inches): 2.00 Weight (Pounds): 100 General Appearance: no apparent distress - 40% VM in place with adequate sats. Head: normocephalic, atraumatic Eyes: bilateral anicteric Neck: full range of motion, no mass Respiratory: other - coarse rhonchi throughout. Cardiovascular: regular rate, rhythm Gastrointestinal: normal bowel sounds, non tender, soft, no mass, no organomegaly, non-distended Edema: no edema noted Generalized Neurologic: no new focality GEETA WOOD Feb 27, 2017 17:31
[2017-02-27 20:03] VITALS: BP 135/52
[2017-02-27] MEDS: D5 1/2NS w/KCl 40meq 1000ml 1,000 ML IV SCH (20:23)
[2017-02-28] VITALS (7 sets, daily range): BP systolic 121–134; BP diastolic 58–79
[2017-02-28] MEDS: Levalbuterol Inh UD 1.25mg/0.5ml HHN SCH ×6 (03:54→23:25)
[2017-02-28] MEDS: Ipratropium 0.02% Inh Soln 2.5ml UD HHN PRN ×4 (03:54→14:35)
[2017-02-28] MEDS: Piperacillin/Tazobactam 3.375 GM in D5W 110 ML IV SCH ×3 (06:45→22:00)
[2017-02-28 07:41] LABS: BASOPHILS % (AUTO) 0.6 % (0.0-2.0); EOSINOPHILS % (AUTO) 0.2 % (0.0-3.0); LYMPHOCYTES % (AUTO) 9.7 % (20.0-45.0); MEAN CORPUSCULAR HEMOGLOBIN 34.2 PG (27.0-31.0); MEAN CORPUSCULAR HGB CONC 34.6 G/DL (32.0-36.0); MEAN CORPUSCULAR VOLUME 99 FL (80-99); MEAN PLATELET VOLUME 5.4 FL (6.5-10.1); NEUTROPHILS % (AUTO) 83.4 % (45.0-75.0); PLATELET COUNT 223 K/UL (150-450); RED BLOOD COUNT 2.59 M/UL (4.20-5.40); RED CELL DISTRIBUTION WIDTH 12.9 % (11.6-14.8); WHITE BLOOD COUNT 11.8 K/UL (4.8-10.8)
[2017-02-28 07:53] LABS: ANION GAP 11 (5-15); CALCIUM 9.6 mg/dL (8.6-10.2); CARBON DIOXIDE 22 mEQ/L (20-30); CHLORIDE 103 mEQ/L (98-107); CREATININE 0.6 mg/dL (0.5-0.9); HEMOLYSIS 20; POTASSIUM 3.9 mEQ/L (3.4-4.9); SODIUM 136 mEQ/L (135-145)
[2017-02-28] MEDS: Pantoprazole Inj IVP SCH ×2 (09:17→20:58)
[2017-02-28] MEDS: Heparin 5000 units/ml inj SUBQ SCH ×2 (09:17→20:58)
[2017-02-28] MEDS: Vancomycin 750mg/NS 250ml IVPB SCH (11:07)
[2017-02-28] MEDS: D5 IV SCH (11:43)
[2017-02-28] MEDS: MULTIVITAMIN IV SCH (11:43)
[2017-02-28] MEDS: KCL IV SCH (11:43)
[2017-02-28] MEDS: [UNRECOGNIZED DRUG - OTHER] IV SCH (11:43)
--- NOTE | 2017-02-28 13:40 | Pulmonology Progress Note ---
Assessment/Plan Assessment/Plan 1. Sepsis due to pneumonia. 2. Pneumonia. 3. Dementia. 4. Lactic acidosis. 5. Left humerus fracture. 6. Status post stroke. 7. Paroxysmal atrial fibrillation. 8. Seizure disorder. 9. Hyperglycemia. stable this afternoon await family decision re code status, comfort care recommendation presently full code cont abx, IV wound care sling for left UE Subjective ROS Limited/Unobtainable: Yes Allergies: Coded Allergies: NO KNOWN ALLERGIES (Unverified Allergy, Unknown, 08/24/15) Subjective seen examined obtunded no distress no fever noted no reports of cp nv or bleeding pain controlled Objective Last 24 Hour Vital Signs Date Time Temp Pulse Resp B/P (MAP) Pulse Ox O2 Delivery O2 Flow Rate FiO2 02/28/17 12:00 98.1 89 20 128/60 93 Simple Mask 02/28/17 11:54 117 02/28/17 11:20 105 22 97 Venturi Mask 10.0 40 02/28/17 11:14 108 22 94 Venturi Mask 10.0 40 02/28/17 08:13 120 02/28/17 08:00 97.1 94 22 121/58 94 Simple Mask 02/28/17 07:16 81 22 95 Venturi Mask 10.0 40 02/28/17 07:08 61 20 91 Venturi Mask 10.0 40 02/28/17 07:08 Venturi Mask 10.0 40 02/28/17 07:08 90 Venturi Mask 10.0 40 02/28/17 04:00 104 02/28/17 04:00 107 20 97 Venturi Mask 10.0 40 02/28/17 04:00 98.2 105 20 134/64 96 Venturi Mask 10.0 02/28/17 03:55 86 22 98 Venturi Mask 10.0 40 02/28/17 00:27 99.1 119 36 131/79 96 Venturi Mask 10.0 119 02/28/17 00:00 97 02/27/17 23:23 111 20 95 Venturi Mask 10.0 40 02/27/17 23:16 105 20 91 Venturi Mask 10.0 40 02/27/17 20:03 98.1 107 32 135/52 97 Venturi Mask 10.0 02/27/17 20:00 100 02/27/17 19:01 105 20 97 Venturi Mask 10.0 40 02/27/17 18:55 Venturi Mask 10.0 40 02/27/17 18:55 103 22 98 Venturi Mask 10.0 40 02/27/17 18:53 91 Venturi Mask 10.0 40 02/27/17 16:00 99.4 116 22 131/76 94 Simple Mask 02/27/17 16:00 96 02/27/17 15:28 104 20 97 Venturi Mask 10.0 40 02/27/17 15:23 105 20 98 Venturi Mask 10.0 40 Intake and Output 02/28/17 03/01/17 19:00 07:00 Intake Total 711.667 ml Balance 711.667 ml Intake IV Total 711.667 ml # Voids 3 General Appearance: cachetic HEENT: normocephalic, atraumatic Respiratory/Chest: normal breath sounds, rhonchi Cardiovascular: normal rate, regular rhythm Abdomen: normal bowel sounds, soft, non tender, no organomegaly Extremities: no edema, other - ;eft arm sling Skin: no rash, no lesions Neurologic/Psychiatric: disoriented, unresponsiveness Laboratory Tests 02/28/17 05:10: White Blood Count 11.8H, Red Blood Count 2.59L, Hemoglobin 8.9L, Hematocrit 25.6L, Mean Corpuscular Volume 99, Mean Corpuscular Hemoglobin 34.2H, Mean Corpuscular Hemoglobin Concent 34.6, Red Cell Distribution Width 12.9, Platelet Count 223, Mean Platelet Volume 5.4L, Neutrophils (%) (Auto) 83.4H, Lymphocytes (%) (Auto) 9.7L, Monocytes (%) (Auto) 6.0, Eosinophils (%) (Auto) 0.2, Basophils (%) (Auto) 0.6, Sodium Level 136, Potassium Level 3.9, Chloride Level 103, Carbon Dioxide Level 22, Anion Gap 11, Blood Urea Nitrogen 10, Creatinine 0.6, Estimat Glomerular Filtration Rate , Glucose Level 90, Calcium Level 9.6 Current Medications Medications (Trade) Dose Ordered Sig/Autumn Route PRN Reason Start Time Stop Time Status Last Admin Dose Admin Dextrose/ Electrolytes 1,000 ml @ 60 mls/hr [id number] IV 02/27/17 20:00 03/29/17 19:59 02/27/17 20:23 Heparin Sodium (Porcine) (Heparin 5000 units/ml) 5,000 units Q12H SUBQ 02/24/17 21:00 03/26/17 20:59 02/28/17 09:17 Ipratropium [place] (Atrovent) 500 mcg Q4H PRN HHN Shortness of Breath 02/24/17 21:45 03/01/17 21:44 02/28/17 11:17 Levalbuterol HCl (Xopenex) 1.25 mg Q4HRT HHN 02/25/17 03:00 03/02/17 02:59 02/28/17 11:17 Multivitamins 10 ml/Dextrose/ Electrolytes 1,010 ml @ 75 mls/hr Q24H IV 02/27/17 09:00 03/29/17 08:59 02/28/17 11:43 Pantoprazole (Protonix) 40 mg EVERY 12 HOURS IVP 02/24/17 12:00 03/26/17 11:59 02/28/17 09:17 Piperacillin Sod/ Tazobactam Sod 3.375 gm/Dextrose 110 ml @ 27.5 mls/hr EVERY 8 HOURS IV 02/24/17 14:00 03/03/17 13:59 02/28/17 06:45 Vancomycin HCl (Vanco rx to dose) 1 ea DAILY PRN MISC PER RX PROTOCOL 02/24/17 09:00 03/26/17 08:59 Vancomycin/Sodium Chloride 250 ml @ 166.667 mls/hr Q24H IVPB 02/28/17 09:00 03/05/17 08:59 02/28/17 11:07 PAM MNACILLA DO Feb 28, 2017 13:40
[2017-02-28] MEDS: D5 1/2NS w/KCl 40meq 1000ml 1,000 ML IV SCH (14:00)
--- NOTE | 2017-02-28 14:05 | Neurology Progress Note ---
Interim History Interim History Interim History Ms. Werner is poorly responsive. She can be aroused briefly on painful stimulation and is able to maintain arousal for less than a minute. She is non-verbal. She does not follow any commands. She is breathing more comfortably. There has been no significant improvement in her condition. Review of Systems Neuro Review of Systems Unable to obtain. Objective Physical Exam Last Vital Signs Date Time Temp Pulse Resp B/P (MAP) Pulse Ox O2 Delivery O2 Flow Rate FiO2 02/28/17 12:00 98.1 89 20 128/60 93 Simple Mask 02/28/17 11:20 10.0 40 Laboratory Tests Test 02/28/17 05:10 White Blood Count 11.8 K/UL (4.8-10.8) H Red Blood Count 2.59 M/UL (4.20-5.40) L Hemoglobin 8.9 G/DL (12.0-16.0) L Hematocrit 25.6 % (37.0-47.0) L Mean Corpuscular Volume 99 FL (80-99) Mean Corpuscular Hemoglobin 34.2 PG (27.0-31.0) H Mean Corpuscular Hemoglobin Concent 34.6 G/DL (32.0-36.0) Red Cell Distribution Width 12.9 % (11.6-14.8) Platelet Count 223 K/UL (150-450) Mean Platelet Volume 5.4 FL (6.5-10.1) L Neutrophils (%) (Auto) 83.4 % (45.0-75.0) H Lymphocytes (%) (Auto) 9.7 % (20.0-45.0) L Monocytes (%) (Auto) 6.0 % (1.0-10.0) Eosinophils (%) (Auto) 0.2 % (0.0-3.0) Basophils (%) (Auto) 0.6 % (0.0-2.0) Sodium Level 136 mEQ/L (135-145) Potassium Level 3.9 mEQ/L (3.4-4.9) Chloride Level 103 mEQ/L (98-107) Carbon Dioxide Level 22 mEQ/L (20-30) Anion Gap 11 (5-15) Blood Urea Nitrogen 10 mg/dL (7-23) Creatinine 0.6 mg/dL (0.5-0.9) Estimat Glomerular Filtration Rate mL/min (>60) Glucose Level 90 mg/dL (74-106) Calcium Level 9.6 mg/dL (8.6-10.2) Neurologic Exam Objective PHYSICAL EXAMINATION: GENERAL: She is a well-developed but lean lady, lying in bed, in no acute distress. HEAD: Normocephalic and atraumatic. EENT: Examination benign. NECK: No neck rigidity was observed. NEUROLOGIC EXAMINATION: MENTAL STATUS EXAMINATION: She was sleeping when I went to see her. She would not arouse on vocal stimulation, but she did wake up on deep painful stimulation. She was able to maintain arousal for less than a minute. She was mute and did not follow any commands. SPEECH: Could not be tested as she was mute. LANGUAGE: She did not follow simple commands and did not say a single word. CRANIAL NERVE EXAMINATION: II: She did blink to threat. III, IV & : The external ocular movements were full. The pupils were 4 mm in diameter, equal, round, regular, and reactive sluggishly to light. V & VII: The corneal reflexes were present bilaterally, but left-sided reflex was brisker than the right. In addition, she also had flattening of the right nasolabial fold and mild right VII central facial paresis. VIII: She did respond to sounds. IX & X: The gag reflex was present, but significantly diminished. XI: The sternocleidomastoids and trapezii did function. XII: The tongue was in the midline without any fasciculations or atrophy. MOTOR SYSTEM: The tone was normal in the right upper extremity and both lower extremities. It could not be tested adequately in the left upper extremity because the left upper extremity was in an immobilizer. Examination of muscle mass revealed generalized muscle wasting. Examination of power was impossible to perform on individual muscle groups. She responded to deep pain with minimal withdrawal in all four extremities, but would not contact center rep my hand. SENSORY EXAMINATION: She responded appropriately to deep pain with a moan and withdrawal. She could not cooperate for other sensory modalities. REFLEXES: 2++ on the right and 1+ on the left at the biceps, triceps, brachioradialis, and knees and 0 at both ankles. The plantar responses were extensor bilaterally. COORDINATION, STANCE & GAIT : Could not be tested. Impression/Recommendations Diagnostic Impression 1. Ms Debi Werner is an 87-year-old, right-handed, lady, who does have past history of depression, hypertension, thyroid disease, spinal stenosis , atrial fibrillation, and dementia, who recently had left humerus fracture that was treated surgically. Following surgery, she became more altered than at baseline. She was then stabilized at [facility] and then sent to a custodial. At the custodial, she apparently vomited and aspirated and as a result of that had to be readmitted to [facility] for an aspiration pneumonia and sepsis. 2. She looks about the same as yesterday. She is able to maintain arousal for less than a minute. 3. On neurological examination, at this time, she can be aroused with painful stimuli, but is mute and unable to communicate in any manner. She also has right VII central facial paresis, brisker deep tendon reflexes on the right side , and extensor plantar responses bilaterally. 4. A prolonged electroencephalogram performed for two days at [facility] revealed an encephalopathy of moderate degree and in addition, left temporal interictal discharges, but no ictal phenomena. 5. An MRI scan of the brain performed recently at [facility] revealed atrophy , deep white matter disease, and a left centrum semiovale infarct. 6. Her laboratory data on my initial evaluation revealed a WBC count elevated to 12,500, an anemia with hemoglobin of 9.2 G. The chemistry panel revealed an elevated blood glucose at 141, elevated CK at 166, and lactic acid that waselevated to 7.4 when she came in. The Urinalysis revealed 1+ leukocyte esterase with 2-4 red blood cells and 2-4 white blood cells per high-power field , and a moderate amount of yeast with few bacteria. 7. The patient's history, neurological examination, imaging studies, electroencephalogram findings, and laboratory data are most compatible with an underlying dementia with superimposed toxic encephalopathy related to her pneumonia and sepsis. 8. 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 9. Her altered mental state is related to the ongoing encephalopathy. Recommendations 1. Continue present management including aggressive treatment of the patient's infectious process and respiratory process. 2. Watch her off anti-seizure medicines. 3. Observe closely. Michael K. [place], M.D., [place]. MICHAEL UMANZOR Feb 28, 2017 14:05
--- NOTE | 2017-02-28 16:58 | Geriatric Progress Note ---
Assessment/Plan Problems: (1) Dementia (2) Depression, major, recurrent, severe with psychosis (3) Dysphagia due to recent cerebrovascular accident (CVA) (4) Abnormal EKG (5) Pneumonia (6) Severe sepsis (7) Respiratory distress Assessment/Plan Generally unchanged, minimally improved re wbc, congestion. Awaiting final decisions re interventions. Continue present therapy for now. Discussed with: hospital staff Subjective Interval Events Patient appears in no distress. Opens eyes briefly to stimuli, appears to blink to threat. No other responses elicited. Staff reports no new clinical changes. Urinating with no stools today. Wbc slightly lower. Chemistries unremarkable. Subjective Does not respond. Geriatric Geriatric Last 24 Hour Vital Signs Date Time Temp Pulse Resp B/P (MAP) Pulse Ox O2 Delivery O2 Flow Rate FiO2 02/28/17 14:37 94 20 96 Venturi Mask 10.0 40 02/28/17 14:35 94 22 96 Venturi Mask 10.0 40 02/28/17 12:00 98.1 89 20 128/60 93 Simple Mask 02/28/17 11:54 117 02/28/17 11:20 105 22 97 Venturi Mask 10.0 40 02/28/17 11:14 108 22 94 Venturi Mask 10.0 40 02/28/17 08:13 120 02/28/17 08:00 97.1 94 22 121/58 94 Simple Mask 02/28/17 07:16 81 22 95 Venturi Mask 10.0 40 02/28/17 07:08 61 20 91 Venturi Mask 10.0 40 02/28/17 07:08 Venturi Mask 10.0 40 02/28/17 07:08 90 Venturi Mask 10.0 40 02/28/17 04:00 104 02/28/17 04:00 107 20 97 Venturi Mask 10.0 40 02/28/17 04:00 98.2 105 20 134/64 96 Venturi Mask 10.0 02/28/17 03:55 86 22 98 Venturi Mask 10.0 40 02/28/17 00:27 99.1 119 36 131/79 96 Venturi Mask 10.0 119 02/28/17 00:00 97 02/27/17 23:23 111 20 95 Venturi Mask 10.0 40 02/27/17 23:16 105 20 91 Venturi Mask 10.0 40 02/27/17 20:03 98.1 107 32 135/52 97 Venturi Mask 10.0 02/27/17 20:00 100 02/27/17 19:01 105 20 97 Venturi Mask 10.0 40 02/27/17 18:55 Venturi Mask 10.0 40 02/27/17 18:55 103 22 98 Venturi Mask 10.0 40 02/27/17 18:53 91 Venturi Mask 10.0 40 Intake and Output 02/28/17 03/01/17 19:00 07:00 Intake Total 711.667 ml Balance 711.667 ml Intake IV Total 711.667 ml # Voids 3 Laboratory Tests Test 02/28/17 05:10 White Blood Count 11.8 K/UL (4.8-10.8) H Red Blood Count 2.59 M/UL (4.20-5.40) L Hemoglobin 8.9 G/DL (12.0-16.0) L Hematocrit 25.6 % (37.0-47.0) L Mean Corpuscular Volume 99 FL (80-99) Mean Corpuscular Hemoglobin 34.2 PG (27.0-31.0) H Mean Corpuscular Hemoglobin Concent 34.6 G/DL (32.0-36.0) Red Cell Distribution Width 12.9 % (11.6-14.8) Platelet Count 223 K/UL (150-450) Mean Platelet Volume 5.4 FL (6.5-10.1) L Neutrophils (%) (Auto) 83.4 % (45.0-75.0) H Lymphocytes (%) (Auto) 9.7 % (20.0-45.0) L Monocytes (%) (Auto) 6.0 % (1.0-10.0) Eosinophils (%) (Auto) 0.2 % (0.0-3.0) Basophils (%) (Auto) 0.6 % (0.0-2.0) Sodium Level 136 mEQ/L (135-145) Potassium Level 3.9 mEQ/L (3.4-4.9) Chloride Level 103 mEQ/L (98-107) Carbon Dioxide Level 22 mEQ/L (20-30) Anion Gap 11 (5-15) Blood Urea Nitrogen 10 mg/dL (7-23) Creatinine 0.6 mg/dL (0.5-0.9) Estimat Glomerular Filtration Rate mL/min (>60) Glucose Level 90 mg/dL (74-106) Calcium Level 9.6 mg/dL (8.6-10.2) Current Medications Medications (Trade) Dose Ordered Sig/Autumn Route PRN Reason Start Time Stop Time Status Last Admin Dose Admin Dextrose/ Electrolytes 1,000 ml @ 60 mls/hr [id number] IV 02/27/17 20:00 03/29/17 19:59 02/28/17 14:00 Heparin Sodium (Porcine) (Heparin 5000 units/ml) 5,000 units Q12H SUBQ 02/24/17 21:00 03/26/17 20:59 02/28/17 09:17 Ipratropium [place] (Atrovent) 500 mcg Q4H PRN HHN Shortness of Breath 02/24/17 21:45 03/01/17 21:44 02/28/17 14:35 Levalbuterol HCl (Xopenex) 1.25 mg Q4HRT HHN 02/25/17 03:00 03/02/17 02:59 02/28/17 14:35 Multivitamins 10 ml/Dextrose/ Electrolytes 1,010 ml @ 75 mls/hr Q24H IV 02/27/17 09:00 03/29/17 08:59 02/28/17 11:43 Pantoprazole (Protonix) 40 mg EVERY 12 HOURS IVP 02/24/17 12:00 03/26/17 11:59 02/28/17 09:17 Piperacillin Sod/ Tazobactam Sod 3.375 gm/Dextrose 110 ml @ 27.5 mls/hr EVERY 8 HOURS IV 02/24/17 14:00 03/03/17 13:59 02/28/17 14:01 Vancomycin HCl (Vanco rx to dose) 1 ea DAILY PRN MISC PER RX PROTOCOL 02/24/17 09:00 03/26/17 08:59 Vancomycin/Sodium Chloride 250 ml @ 166.667 mls/hr Q24H IVPB 02/28/17 09:00 03/05/17 08:59 02/28/17 11:07 Height (Feet): 5 Height (Inches): 2.00 Weight (Pounds): 100 General Appearance: no apparent distress Head: normocephalic, atraumatic Eyes: bilateral anicteric Neck: no mass Respiratory: other - decreased congestion, but still rhonchi throughout. Cardiovascular: regular rate, rhythm Gastrointestinal: normal bowel sounds, non tender, soft, no mass, no organomegaly Edema: no edema noted Generalized GEETA WOOD Feb 28, 2017 16:58
[2017-02-28] MEDS ORDERED: NS 275ml ONE (17:29)
[2017-02-28] MEDS ORDERED: Tubing IV Secondary IV ONE (17:29)
--- NOTE | 2017-02-28 21:02 | General Progress Note ---
Assessment/Plan Assessment/Plan GI CONSULT Patient seen. Note dictated. Await family input re level of care. Keep NPO for now. Will follow Thank you. Harry Garza MD Subjective Allergies: Coded Allergies: NO KNOWN ALLERGIES (Unverified Allergy, Unknown, 08/24/15) Objective Last 24 Hour Vital Signs Date Time Temp Pulse Resp B/P (MAP) Pulse Ox O2 Delivery O2 Flow Rate FiO2 02/28/17 20:00 97.9 86 20 130/69 97 Venturi Mask 10.0 40 02/28/17 19:47 96 24 98 Venturi Mask 10.0 40 02/28/17 19:36 40 02/28/17 19:35 Venturi Mask 10.0 40 02/28/17 19:35 103 24 96 Venturi Mask 10.0 40 02/28/17 19:35 97 Venturi Mask 10.0 40 02/28/17 16:00 98.3 115 20 127/69 96 Nasal Cannula 02/28/17 15:15 116 02/28/17 14:37 94 20 96 Venturi Mask 10.0 40 02/28/17 14:35 94 22 96 Venturi Mask 10.0 40 02/28/17 12:00 98.1 89 20 128/60 93 Simple Mask 02/28/17 11:54 117 02/28/17 11:20 105 22 97 Venturi Mask 10.0 40 02/28/17 11:14 108 22 94 Venturi Mask 10.0 40 02/28/17 08:13 120 02/28/17 08:00 97.1 94 22 121/58 94 Simple Mask 02/28/17 07:16 81 22 95 Venturi Mask 10.0 40 02/28/17 07:08 61 20 91 Venturi Mask 10.0 40 02/28/17 07:08 Venturi Mask 10.0 40 02/28/17 07:08 90 Venturi Mask 10.0 40 02/28/17 04:00 104 02/28/17 04:00 107 20 97 Venturi Mask 10.0 40 02/28/17 04:00 98.2 105 20 134/64 96 Venturi Mask 10.0 02/28/17 03:55 86 22 98 Venturi Mask 10.0 40 02/28/17 00:27 99.1 119 36 131/79 96 Venturi Mask 10.0 119 02/28/17 00:00 97 02/27/17 23:23 111 20 95 Venturi Mask 10.0 40 02/27/17 23:16 105 20 91 Venturi Mask 10.0 40 Intake and Output 02/28/17 03/01/17 19:00 07:00 Intake Total 1558.334 ml Balance 1558.334 ml Intake IV Total 1558.334 ml # Voids 4 Laboratory Tests 02/28/17 05:10: White Blood Count 11.8H, Red Blood Count 2.59L, Hemoglobin 8.9L, Hematocrit 25.6L, Mean Corpuscular Volume 99, Mean Corpuscular Hemoglobin 34.2H, Mean Corpuscular Hemoglobin Concent 34.6, Red Cell Distribution Width 12.9, Platelet Count 223, Mean Platelet Volume 5.4L, Neutrophils (%) (Auto) 83.4H, Lymphocytes (%) (Auto) 9.7L, Monocytes (%) (Auto) 6.0, Eosinophils (%) (Auto) 0.2, Basophils (%) (Auto) 0.6, Sodium Level 136, Potassium Level 3.9, Chloride Level 103, Carbon Dioxide Level 22, Anion Gap 11, Blood Urea Nitrogen 10, Creatinine 0.6, Estimat Glomerular Filtration Rate , Glucose Level 90, Calcium Level 9.6 Height (Feet): 5 Height (Inches): 2.00 Weight (Pounds): 100 ETTA GARZA Feb 28, 2017 21:02
[2017-03-01] VITALS: BP 128/67
[2017-03-01] MEDS: Levalbuterol Inh UD 1.25mg/0.5ml HHN SCH ×6 (03:53→23:14)
[2017-03-01 04:00] VITALS: BP 117/70
[2017-03-01] MEDS: Piperacillin/Tazobactam 3.375 GM in D5W 110 ML IV SCH ×3 (06:30→22:52)
[2017-03-01 07:57] VITALS: BP 143/77
[2017-03-01 08:09] LABS: BASOPHILS % (AUTO) 1.3 % (0.0-2.0); EOSINOPHILS % (AUTO) 0.1 % (0.0-3.0); LYMPHOCYTES % (AUTO) 9.9 % (20.0-45.0); MEAN CORPUSCULAR HEMOGLOBIN 33.5 PG (27.0-31.0); MEAN CORPUSCULAR HGB CONC 33.5 G/DL (32.0-36.0); MEAN CORPUSCULAR VOLUME 100 FL (80-99); MEAN PLATELET VOLUME 5.8 FL (6.5-10.1); MONOCYTES % (AUTO) 7.2 % (1.0-10.0); NEUTROPHILS % (AUTO) 81.6 % (45.0-75.0); PLATELET COUNT 258 K/UL (150-450); RED CELL DISTRIBUTION WIDTH 13.3 % (11.6-14.8); WHITE BLOOD COUNT 11.1 K/UL (4.8-10.8)
[2017-03-01 08:30] LABS: ANION GAP 8 (5-15); CALCIUM 9.9 mg/dL (8.6-10.2); CARBON DIOXIDE 27 mEQ/L (20-30); CHLORIDE 104 mEQ/L (98-107); CREATININE 0.5 mg/dL (0.5-0.9); HEMOLYSIS 0; POTASSIUM 3.7 mEQ/L (3.4-4.9); SODIUM 139 mEQ/L (135-145)
--- NOTE | 2017-03-01 08:50 | Pulmonology Progress Note ---
Assessment/Plan Assessment/Plan 1. Sepsis due to pneumonia. 2. Pneumonia. 3. Dementia. 4. Lactic acidosis. 5. Left humerus fracture. 6. Status post stroke. 7. Paroxysmal atrial fibrillation. 8. Seizure disorder. 9. Hyperglycemia. no family present and no change in code status at this time monitor respiratory status closely nebs and suction prn abg cxr for am cont abx, IV wound care sling for left UE Subjective ROS Limited/Unobtainable: Yes Allergies: Coded Allergies: NO KNOWN ALLERGIES (Unverified Allergy, Unknown, 08/24/15) Subjective seen examined pt on face mask for o2 this am obtunded no distress no fever noted no reports of cp nv or bleeding pain controlled Objective Last 24 Hour Vital Signs Date Time Temp Pulse Resp B/P (MAP) Pulse Ox O2 Delivery O2 Flow Rate FiO2 03/01/17 07:57 99.0 88 21 143/77 96 Simple Mask 10.0 03/01/17 06:45 Venturi Mask 10.0 40 03/01/17 06:45 99 Venturi Mask 10.0 40 03/01/17 06:45 76 20 99 Venturi Mask 10.0 40 03/01/17 06:40 40 03/01/17 06:40 75 20 97 Venturi Mask 10.0 40 03/01/17 04:02 110 22 97 Venturi Mask 10.0 40 03/01/17 04:00 97.3 83 20 117/70 97 Venturi Mask 10.0 40 03/01/17 03:52 40 03/01/17 03:52 106 20 97 Venturi Mask 10.0 40 03/01/17 03:47 107 03/01/17 00:00 97.7 89 20 128/67 97 Venturi Mask 10.0 40 02/28/17 23:50 106 02/28/17 23:36 82 24 98 Venturi Mask 10.0 40 02/28/17 23:25 40 02/28/17 23:25 109 20 96 Venturi Mask 10.0 40 02/28/17 20:00 97.9 86 20 130/69 97 Venturi Mask 10.0 40 02/28/17 19:47 96 24 98 Venturi Mask 10.0 40 02/28/17 19:36 40 02/28/17 19:35 Venturi Mask 10.0 40 02/28/17 19:35 103 24 96 Venturi Mask 10.0 40 02/28/17 19:35 97 Venturi Mask 10.0 40 02/28/17 19:05 93 02/28/17 16:00 98.3 115 20 127/69 96 Nasal Cannula 02/28/17 15:15 116 02/28/17 14:37 94 20 96 Venturi Mask 10.0 40 02/28/17 14:35 94 22 96 Venturi Mask 10.0 40 02/28/17 12:00 98.1 89 20 128/60 93 Simple Mask 02/28/17 11:54 117 02/28/17 11:20 105 22 97 Venturi Mask 10.0 40 02/28/17 11:14 108 22 94 Venturi Mask 10.0 40 General Appearance: cachetic HEENT: atraumatic, anicteric Respiratory/Chest: rhonchi Cardiovascular: normal rate, regular rhythm Abdomen: soft, non tender Extremities: other - edema Skin: other Neurologic/Psychiatric: disoriented Laboratory Tests 03/01/17 07:19: White Blood Count 11.1H, Red Blood Count 2.70L, Hemoglobin 9.0L, Hematocrit 26.9L, Mean Corpuscular Volume 100H, Mean Corpuscular Hemoglobin 33.5H, Mean Corpuscular Hemoglobin Concent 33.5, Red Cell Distribution Width 13.3, Platelet Count 258, Mean Platelet Volume 5.8L, Neutrophils (%) (Auto) 81.6H, Lymphocytes (%) (Auto) 9.9L, Monocytes (%) (Auto) 7.2, Eosinophils (%) (Auto) 0.1, Basophils (%) (Auto) 1.3, Sodium Level 139, Potassium Level 3.7, Chloride Level 104, Carbon Dioxide Level 27, Anion Gap 8, Blood Urea Nitrogen 8, Creatinine 0.5 , Estimat Glomerular Filtration Rate , Glucose Level 106, Calcium Level 9.9 Current Medications Medications (Trade) Dose Ordered Sig/Autumn Route PRN Reason Start Time Stop Time Status Last Admin Dose Admin Heparin Sodium (Porcine) (Heparin 5000 units/ml) 5,000 units Q12H SUBQ 02/24/17 21:00 03/26/17 20:59 02/28/17 20:58 Ipratropium [place] (Atrovent) 500 mcg Q4H PRN HHN Shortness of Breath 02/24/17 21:45 03/01/17 21:44 02/28/17 14:35 Levalbuterol HCl (Xopenex) 1.25 mg Q4HRT HHN 02/25/17 03:00 03/02/17 02:59 03/01/17 07:03 Multivitamins 10 ml/Dextrose/ Electrolytes 1,010 ml @ 75 mls/hr Q24H IV 02/27/17 09:00 03/29/17 08:59 02/28/17 11:43 Pantoprazole (Protonix) 40 mg EVERY 12 HOURS IVP 02/24/17 12:00 03/26/17 11:59 02/28/17 20:58 Piperacillin Sod/ Tazobactam Sod 3.375 gm/Dextrose 110 ml @ 27.5 mls/hr EVERY 8 HOURS IV 02/24/17 14:00 03/03/17 13:59 03/01/17 06:30 Vancomycin HCl (Vanco rx to dose) 1 ea DAILY PRN MISC PER RX PROTOCOL 02/24/17 09:00 03/26/17 08:59 Vancomycin/Sodium Chloride 250 ml @ 166.667 mls/hr Q24H IVPB 02/28/17 09:00 03/05/17 08:59 02/28/17 11:07 PAM MANCILLA DO Mar 01, 2017 08:50
[2017-03-01] MEDS: KCL IV SCH ×2 (09:00→09:34)
[2017-03-01] MEDS: D5 IV SCH ×2 (09:00→09:34)
[2017-03-01] MEDS: MULTIVITAMIN IV SCH ×2 (09:00→09:34)
[2017-03-01] MEDS: [UNRECOGNIZED DRUG - OTHER] IV SCH ×2 (09:00→09:34)
[2017-03-01] MEDS: Pantoprazole Inj IVP SCH ×2 (09:21→20:37)
[2017-03-01] MEDS: Heparin 5000 units/ml inj SUBQ SCH ×2 (09:27→20:39)
[2017-03-01] MEDS: Vancomycin 750mg/NS 250ml IVPB SCH (09:34)
[2017-03-01 12:01] VITALS: BP 135/70
--- NOTE | 2017-03-01 13:45 | Neurology Progress Note ---
Interim History Interim History Interim History Ms. Werner continues to be poorly responsive. She can be aroused briefly on painful stimulation and is able to maintain arousal for less than a minute. She is non-verbal. She does not follow any commands. She is breathing more comfortably. There has been no significant improvement in her condition. Review of Systems Neuro Review of Systems Unable to obtain. Objective Physical Exam Last Vital Signs Date Time Temp Pulse Resp B/P (MAP) Pulse Ox O2 Delivery O2 Flow Rate FiO2 03/01/17 12:01 97.9 82 21 135/70 98 Simple Mask 10.0 03/01/17 10:55 40 Laboratory Tests Test 03/01/17 07:19 White Blood Count 11.1 K/UL (4.8-10.8) H Red Blood Count 2.70 M/UL (4.20-5.40) L Hemoglobin 9.0 G/DL (12.0-16.0) L Hematocrit 26.9 % (37.0-47.0) L Mean Corpuscular Volume 100 FL (80-99) H Mean Corpuscular Hemoglobin 33.5 PG (27.0-31.0) H Mean Corpuscular Hemoglobin Concent 33.5 G/DL (32.0-36.0) Red Cell Distribution Width 13.3 % (11.6-14.8) Platelet Count 258 K/UL (150-450) Mean Platelet Volume 5.8 FL (6.5-10.1) L Neutrophils (%) (Auto) 81.6 % (45.0-75.0) H Lymphocytes (%) (Auto) 9.9 % (20.0-45.0) L Monocytes (%) (Auto) 7.2 % (1.0-10.0) Eosinophils (%) (Auto) 0.1 % (0.0-3.0) Basophils (%) (Auto) 1.3 % (0.0-2.0) Sodium Level 139 mEQ/L (135-145) Potassium Level 3.7 mEQ/L (3.4-4.9) Chloride Level 104 mEQ/L (98-107) Carbon Dioxide Level 27 mEQ/L (20-30) Anion Gap 8 (5-15) Blood Urea Nitrogen 8 mg/dL (7-23) Creatinine 0.5 mg/dL (0.5-0.9) Estimat Glomerular Filtration Rate mL/min (>60) Glucose Level 106 mg/dL (74-106) Calcium Level 9.9 mg/dL (8.6-10.2) Neurologic Exam Objective PHYSICAL EXAMINATION: GENERAL: She is a well-developed but lean lady, lying in bed, in no acute distress. HEAD: Normocephalic and atraumatic. EENT: Examination benign. NECK: No neck rigidity was observed. NEUROLOGIC EXAMINATION: MENTAL STATUS EXAMINATION: She was sleeping when I went to see her. She did wake up on loud vocal stimulation. She was able to maintain arousal for less than a minute. She was mute and did not follow any commands. SPEECH: Could not be tested as she was mute. LANGUAGE: She did not follow simple commands and did not say a single word. CRANIAL NERVE EXAMINATION: II: She did blink to threat. III, IV & : The external ocular movements were full. The pupils were 4 mm in diameter, equal, round, regular, and reactive sluggishly to light. V & VII: The corneal reflexes were present bilaterally, but left-sided reflex was brisker than the right. In addition, she also had flattening of the right nasolabial fold and mild right VII central facial paresis. VIII: She did respond to sounds. IX & X: The gag reflex was present, but significantly diminished. XI: The sternocleidomastoids and trapezii did function. XII: The tongue was in the midline without any fasciculations or atrophy. MOTOR SYSTEM: The tone was normal in the right upper extremity and both lower extremities. It could not be tested adequately in the left upper extremity because the left upper extremity was in an immobilizer. Examination of muscle mass revealed generalized muscle wasting. Examination of power was impossible to perform on individual muscle groups. She responded to deep pain with minimal withdrawal in all four extremities, but would not uptwist spinner my hand. SENSORY EXAMINATION: She responded appropriately to deep pain with a moan and withdrawal. She could not cooperate for other sensory modalities. REFLEXES: 2++ on the right and 1+ on the left at the biceps, triceps, brachioradialis, and knees and 0 at both ankles. The plantar responses were extensor bilaterally. COORDINATION, STANCE & GAIT : Could not be tested. Impression/Recommendations Diagnostic Impression 1. Ms Debi Werner is an 87-year-old, right-handed, lady, who does have past history of depression, hypertension, thyroid disease, spinal stenosis , atrial fibrillation, and dementia, who recently had left humerus fracture that was treated surgically. Following surgery, she became more altered than at baseline. She was then stabilized at [facility] and then sent to a snf. At the snf, she apparently vomited and aspirated and as a result of that had to be readmitted to [facility] for an aspiration pneumonia and sepsis. 2. She looks about the same as yesterday. She is able to maintain arousal for less than a minute. 3. On neurological examination, at this time, she can be aroused with loud vocal stimuli, but is mute and unable to communicate in any manner. She also has right VII central facial paresis, brisker deep tendon reflexes on the right side, and extensor plantar responses bilaterally. 4. A prolonged electroencephalogram performed for two days at [facility] revealed an encephalopathy of moderate degree and in addition, left temporal interictal discharges, but no ictal phenomena. 5. An MRI scan of the brain performed recently at [facility] revealed atrophy , deep white matter disease, and a left centrum semiovale infarct. 6. Her laboratory data on my initial evaluation revealed a WBC count elevated to 12,500, an anemia with hemoglobin of 9.2 G. The chemistry panel revealed an elevated blood glucose at 141, elevated CK at 166, and lactic acid that waselevated to 7.4 when she came in. The Urinalysis revealed 1+ leukocyte esterase with 2-4 red blood cells and 2-4 white blood cells per high-power field , and a moderate amount of yeast with few bacteria. 7. The patient's history, neurological examination, imaging studies, electroencephalogram findings, and laboratory data are most compatible with an underlying dementia with superimposed toxic encephalopathy related to her pneumonia and sepsis. 8. 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 9. Her altered mental state is related to the ongoing encephalopathy. Recommendations 1. Continue present management including aggressive treatment of the patient's infectious process and respiratory process. 2. Watch her off anti-seizure medicines. 3. Observe closely. Michael Cross M.D., [place]. MICHAEL CROSS Mar 01, 2017 13:45
[2017-03-01] MEDS: Ipratropium 0.02% Inh Soln 2.5ml UD HHN PRN (15:06)
--- NOTE | 2017-03-01 15:25 | Geriatric Progress Note ---
Assessment/Plan Problems: (1) Dementia (2) Depression, major, recurrent, severe with psychosis (3) Dysphagia due to recent cerebrovascular accident (CVA) (4) Abnormal EKG (5) Pneumonia (6) Severe sepsis (7) Respiratory distress (8) Comminuted left humeral fracture with routine healing Assessment/Plan Patient remains about the same. Seen by Dr. Garza who is prepared to place PEG when appropriate. Unclear whether patient will require tracheostomy for pulmonary toilet/ventilator support. Will need to review with Dr. Tere canales. Discussed venous access, respiratory treatments, longer term treatment options in detail with dtr. Reviewed possibility of need to d/c to LTAC or SNF with R.T. Continue current support and full code as requested by family. Recheck labs, CXR in am. Discussed with: family, hospital staff Subjective Interval Events Patient minimally opens eyes to dtr's conversation, no other discernible response. Slightly more congested at present, but about to receive a respiratory treatment. Staff reports no other clinical changes. Dtr reports no discernible changes. Subjective Does not respond. Geriatric Geriatric Last 24 Hour Vital Signs Date Time Temp Pulse Resp B/P (MAP) Pulse Ox O2 Delivery O2 Flow Rate FiO2 03/01/17 15:08 81 20 96 Venturi Mask 10.0 40 03/01/17 12:01 97.9 82 21 135/70 98 Simple Mask 10.0 03/01/17 12:00 95 03/01/17 10:55 79 20 99 Venturi Mask 10.0 40 03/01/17 10:50 40 03/01/17 10:50 77 20 97 Venturi Mask 10.0 40 03/01/17 08:00 85 03/01/17 07:57 99.0 88 21 143/77 96 Simple Mask 10.0 03/01/17 06:45 Venturi Mask 10.0 40 03/01/17 06:45 99 Venturi Mask 10.0 40 03/01/17 06:45 76 20 99 Venturi Mask 10.0 40 03/01/17 06:40 40 03/01/17 06:40 75 20 97 Venturi Mask 10.0 40 03/01/17 04:02 110 22 97 Venturi Mask 10.0 40 03/01/17 04:00 97.3 83 20 117/70 97 Venturi Mask 10.0 40 03/01/17 03:52 40 03/01/17 03:52 106 20 97 Venturi Mask 10.0 40 03/01/17 03:47 107 03/01/17 00:00 97.7 89 20 128/67 97 Venturi Mask 10.0 40 02/28/17 23:50 106 02/28/17 23:36 82 24 98 Venturi Mask 10.0 40 02/28/17 23:25 40 02/28/17 23:25 109 20 96 Venturi Mask 10.0 40 02/28/17 20:00 97.9 86 20 130/69 97 Venturi Mask 10.0 40 02/28/17 19:47 96 24 98 Venturi Mask 10.0 40 02/28/17 19:36 40 02/28/17 19:35 Venturi Mask 10.0 40 02/28/17 19:35 103 24 96 Venturi Mask 10.0 40 02/28/17 19:35 97 Venturi Mask 10.0 40 02/28/17 19:05 93 02/28/17 16:00 98.3 115 20 127/69 96 Nasal Cannula Intake and Output 03/01/17 03/02/17 19:00 07:00 Intake Total 707.500 ml Balance 707.500 ml Intake IV Total 707.500 ml # Voids 2 # Bowel Movements 2 Laboratory Tests Test 03/01/17 07:19 White Blood Count 11.1 K/UL (4.8-10.8) H Red Blood Count 2.70 M/UL (4.20-5.40) L Hemoglobin 9.0 G/DL (12.0-16.0) L Hematocrit 26.9 % (37.0-47.0) L Mean Corpuscular Volume 100 FL (80-99) H Mean Corpuscular Hemoglobin 33.5 PG (27.0-31.0) H Mean Corpuscular Hemoglobin Concent 33.5 G/DL (32.0-36.0) Red Cell Distribution Width 13.3 % (11.6-14.8) Platelet Count 258 K/UL (150-450) Mean Platelet Volume 5.8 FL (6.5-10.1) L Neutrophils (%) (Auto) 81.6 % (45.0-75.0) H Lymphocytes (%) (Auto) 9.9 % (20.0-45.0) L Monocytes (%) (Auto) 7.2 % (1.0-10.0) Eosinophils (%) (Auto) 0.1 % (0.0-3.0) Basophils (%) (Auto) 1.3 % (0.0-2.0) Sodium Level 139 mEQ/L (135-145) Potassium Level 3.7 mEQ/L (3.4-4.9) Chloride Level 104 mEQ/L (98-107) Carbon Dioxide Level 27 mEQ/L (20-30) Anion Gap 8 (5-15) Blood Urea Nitrogen 8 mg/dL (7-23) Creatinine 0.5 mg/dL (0.5-0.9) Estimat Glomerular Filtration Rate mL/min (>60) Glucose Level 106 mg/dL (74-106) Calcium Level 9.9 mg/dL (8.6-10.2) Current Medications Medications (Trade) Dose Ordered Sig/Autumn Route PRN Reason Start Time Stop Time Status Last Admin Dose Admin Heparin Sodium (Porcine) (Heparin 5000 units/ml) 5,000 units Q12H SUBQ 02/24/17 21:00 03/26/17 20:59 03/01/17 09:27 Ipratropium [place] (Atrovent) 500 mcg Q4H PRN HHN Shortness of Breath 02/24/17 21:45 03/01/17 21:44 03/01/17 15:06 Levalbuterol HCl (Xopenex) 1.25 mg Q4HRT HHN 02/25/17 03:00 03/02/17 02:59 03/01/17 15:05 Multivitamins 10 ml/Dextrose/ Electrolytes 1,010 ml @ 75 mls/hr Q24H IV 02/27/17 09:00 03/29/17 08:59 03/01/17 09:00 Pantoprazole (Protonix) 40 mg EVERY 12 HOURS IVP 02/24/17 12:00 03/26/17 11:59 03/01/17 09:21 Piperacillin Sod/ Tazobactam Sod 3.375 gm/Dextrose 110 ml @ 27.5 mls/hr EVERY 8 HOURS IV 02/24/17 14:00 03/03/17 13:59 03/01/17 14:28 Vancomycin HCl (Vanco rx to dose) 1 ea DAILY PRN MISC PER RX PROTOCOL 02/24/17 09:00 03/26/17 08:59 Vancomycin/Sodium Chloride 250 ml @ 166.667 mls/hr Q24H IVPB 02/28/17 09:00 03/05/17 08:59 03/01/17 09:34 Height (Feet): 5 Height (Inches): 2.00 Weight (Pounds): 100 General Appearance: no apparent distress Head: normocephalic, atraumatic Eyes: bilateral anicteric Neck: no mass Respiratory: other - diffuse rhonchi, rales. Cardiovascular: regular rate, rhythm Gastrointestinal: normal bowel sounds, non tender, soft, no mass, no organomegaly, non-distended Musculoskeletal: no calf tenderness Edema: no edema noted Generalized Neurologic: no new focality GEETA WOOD Mar 01, 2017 15:25
[2017-03-01 16:02] VITALS: BP 142/86
[2017-03-01 20:21] VITALS: BP 128/76
[2017-03-02] VITALS: BP 140/71
[2017-03-02 04:15] VITALS: BP 152/74
[2017-03-02] MEDS: Piperacillin/Tazobactam 3.375 GM in D5W 110 ML IV SCH ×3 (06:28→22:05)
--- NOTE | 2017-03-02 06:59 | General Progress Note ---
Assessment/Plan Assessment/Plan Assessment - Resp failure - aspiration risk - reactive airways - OBS Recommendations - NPO - IVF - pulmonary toilet - await family decision (Delayed entry - patient seen 03/01/17) Subjective Allergies: Coded Allergies: NO KNOWN ALLERGIES (Unverified Allergy, Unknown, 08/24/15) Subjective Non interactive on face mask O2 no family at bedside Objective Last 24 Hour Vital Signs Date Time Temp Pulse Resp B/P (MAP) Pulse Ox O2 Delivery O2 Flow Rate FiO2 03/02/17 04:15 98.2 108 20 152/74 94 Simple Mask 03/02/17 04:13 103 03/02/17 00:00 98.4 106 20 140/71 94 Simple Mask 03/01/17 23:39 103 03/01/17 23:29 105 20 98 Venturi Mask 10.0 40 03/01/17 23:14 104 22 95 Venturi Mask 10.0 40 03/01/17 23:14 40 03/01/17 20:21 97.0 50 20 128/76 98 Simple Mask 03/01/17 19:40 97 18 98 Venturi Mask 10.0 40 03/01/17 19:20 95 Venturi Mask 10.0 40 03/01/17 19:20 40 03/01/17 19:20 Venturi Mask 10.0 40 03/01/17 19:20 80 16 95 Venturi Mask 10.0 40 03/01/17 19:00 99 03/01/17 16:02 97.8 90 22 142/86 96 Simple Mask 10.0 03/01/17 16:00 98 03/01/17 15:59 99 20 Venturi Mask 10.0 55 03/01/17 15:14 85 20 99 Venturi Mask 10.0 40 03/01/17 15:14 40 03/01/17 15:08 81 20 96 Venturi Mask 10.0 40 03/01/17 12:01 97.9 82 21 135/70 98 Simple Mask 10.0 03/01/17 12:00 95 03/01/17 10:55 79 20 99 Venturi Mask 10.0 40 03/01/17 10:50 40 03/01/17 10:50 77 20 97 Venturi Mask 10.0 40 03/01/17 08:00 85 03/01/17 07:57 99.0 88 21 143/77 96 Simple Mask 10.0 Laboratory Tests 03/01/17 07:19: White Blood Count 11.1H, Red Blood Count 2.70L, Hemoglobin 9.0L, Hematocrit 26.9L, Mean Corpuscular Volume 100H, Mean Corpuscular Hemoglobin 33.5H, Mean Corpuscular Hemoglobin Concent 33.5, Red Cell Distribution Width 13.3, Platelet Count 258, Mean Platelet Volume 5.8L, Neutrophils (%) (Auto) 81.6H, Lymphocytes (%) (Auto) 9.9L, Monocytes (%) (Auto) 7.2, Eosinophils (%) (Auto) 0.1, Basophils (%) (Auto) 1.3, Sodium Level 139, Potassium Level 3.7, Chloride Level 104, Carbon Dioxide Level 27, Anion Gap 8, Blood Urea Nitrogen 8, Creatinine 0.5 , Estimat Glomerular Filtration Rate , Glucose Level 106, Calcium Level 9.9 Height (Feet): 5 Height (Inches): 2.00 Weight (Pounds): 100 Objective Thin WW NCAT supple b/l wheezing and ronchi RR abd soft ND no edema (+) (L)UE immobilizer ETTA ZURITA Mar 02, 2017 06:59
[2017-03-02 07:59] VITALS: BP 157/67
--- NOTE | 2017-03-02 08:31 | Consultation ---
DATE OF CONSULTATION: 02/28/2017 GASTROLOGY CONSULTATION CONSULTING PHYSICIAN: Armida Garza M.D. Chief Complaint: I was asked to see this patient by Dr. Scar Callahan for evaluation of possible gastrostomy tube placement. History Of Present Illness: The patient is a debilitated 87-year-old white woman who was brought into the hospital due to respiratory distress. The patient has had a complicated recent medical history. She was discharged from [facility] and has had a recent displaced left humeral fracture, which was treated surgically. Subsequently, she also had a stroke. She has been eating very poorly and is not in distress. She also has a history of severe psychosis and depression and apparently has a very poor level of interaction at baseline. At this time, the patient is confused and unable to provide any history and most of the information is only available from the chart. There were two episodes of vomiting noted at the [facility] prior to transfer to the hospital. Past Medical History: Left humeral fracture status post surgical reduction, history of psychotic depression, hypertension, history of parathyroid disorder, spinal stenosis, gait disorder, osteoporosis. Past Surgical History: Status post hysterectomy, appendectomy, and tonsillectomy. MEDICATIONS: See chart for details. ALLERGIES: None. FAMILY HISTORY: Noncontributory. Social History: The patient is a and her daughter looks after her affairs. REVIEW OF SYSTEMS: Unobtainable. PHYSICAL EXAMINATION: GENERAL: Thin white woman, seen in her room. HEENT: Normocephalic and atraumatic. Sclerae and oropharynx could not be evaluated due to the patient's non-cooperative state, as the patient is on oxygen. NECK: Appeared supple. CHEST: Revealed bilateral wheezing or rhonchi. CARDIOVASCULAR: Regular rhythm and rate. ABDOMEN: Soft and flat. EXTREMITIES: Revealed some DVT with contractures. NEUROLOGIC: Notable for obtundation. LABORATORY DATA: Noted. Assessment: This patient presents with respiratory distress, vomiting, and aspiration risk. She is clearly not a candidate for oral feeding at this time and should be kept NPO. I would hold off even nasogastric tube. Her respiratory status seems to be so compromised. In addition, a decision will have to be made regarding her overall care status and whether she should be intubated should her respiratory status worsened. Likewise, the question of a long-term feeding tube can also be raised with the patient's family, although this should be weighed against the patient's overall poor health and poor mental state. For the time being, the treatment will be supportive. The patient is to receive antibiotics and respiratory toilet. I will keep her NPO and give her IV fluids. Over the next few days, once this has improved, then further discussion regarding the gastrostomy tube can be made. Recommendations: Per above discussion and per orders written in the chart. Thank you for asking me to participate in the care of this patient. Armida Garza M.D. DR: ANTOINE JOB#: [id number] CC: JOESPH
[2017-03-02] MEDS: MULTIVITAMIN IV SCH ×2 (09:00→18:35)
[2017-03-02] MEDS: [UNRECOGNIZED DRUG - OTHER] IV SCH ×2 (09:00→18:35)
[2017-03-02] MEDS: Pantoprazole Inj IVP SCH ×2 (09:00→21:14)
[2017-03-02] MEDS: Vancomycin 750mg/NS 250ml IVPB SCH (09:00)
[2017-03-02] MEDS: D5 IV SCH ×2 (09:00→18:35)
[2017-03-02] MEDS: KCL IV SCH ×2 (09:00→18:35)
[2017-03-02] MEDS: Heparin 5000 units/ml inj SUBQ SCH ×2 (09:00→21:16)
[2017-03-02] MEDS ORDERED: Heparin 2000 units/Ns 1000ml INJ ONE ×2 (09:30→15:00)
[2017-03-02] MEDS ORDERED: Lidocaine 1% Plain 30 ml INJ PRN ×2 (09:30→12:00)
--- NOTE | 2017-03-02 11:36 | Diagnostic Imaging Report ---
Indication: Dyspnea Comparison: 02/26/17 A single view chest radiograph was obtained. Findings: Patchy perihilar infiltrate suspected as well as a left basilar parenchymal disease partially silhouetting out the left hemidiaphragm. There is evidence of slightly worsening interstitial edema superimposed on this. Heart size remains relatively stable. Impression: Suspect interstitial edema. Suspect underlying bilateral infiltrates.
[2017-03-02 11:54] VITALS: BP 137/65
--- NOTE | 2017-03-02 12:49 | Neurology Progress Note ---
Interim History Interim History Interim History Ms. Werner continues to be poorly responsive. She can be aroused briefly on painful stimulation and is able to maintain arousal for a few seconds only. She is non-verbal. She does not follow any commands. She is breathing more comfortably. There has been no significant improvement in her condition. Review of Systems Neuro Review of Systems Unable to obtain. Objective Physical Exam Last Vital Signs Date Time Temp Pulse Resp B/P (MAP) Pulse Ox O2 Delivery O2 Flow Rate FiO2 03/02/17 11:54 97.3 78 22 137/65 95 Venturi Mask 10.0 03/01/17 23:29 40 Neurologic Exam Objective PHYSICAL EXAMINATION: GENERAL: She is a well-developed but lean lady, lying in bed, in no acute distress. HEAD: Normocephalic and atraumatic. EENT: Examination benign. NECK: No neck rigidity was observed. NEUROLOGIC EXAMINATION: MENTAL STATUS EXAMINATION: She was sleeping when I went to see her. She did wake up on loud vocal stimulation. She was able to maintain arousal for a few seconds. She was mute and did not follow any commands. SPEECH: Could not be tested as she was mute. LANGUAGE: She did not follow simple commands and did not say a single word. CRANIAL NERVE EXAMINATION: II: She did blink to threat. III, IV & : The external ocular movements were full. The pupils were 4 mm in diameter, equal, round, regular, and reactive sluggishly to light. V & VII: The corneal reflexes were present bilaterally, but left-sided reflex was brisker than the right. In addition, she also had flattening of the right nasolabial fold and mild right VII central facial paresis. VIII: She did respond to sounds. IX & X: The gag reflex was present, but significantly diminished. XI: The sternocleidomastoids and trapezii did function. XII: The tongue was in the midline without any fasciculations or atrophy. MOTOR SYSTEM: The tone was normal in the right upper extremity and both lower extremities. It could not be tested adequately in the left upper extremity because the left upper extremity was in an immobilizer. Examination of muscle mass revealed generalized muscle wasting. Examination of power was impossible to perform on individual muscle groups. She responded to deep pain with minimal withdrawal in all four extremities, but would not jboss developer my hand. SENSORY EXAMINATION: She responded appropriately to deep pain with a moan and withdrawal. She could not cooperate for other sensory modalities. REFLEXES: 2++ on the right and 1+ on the left at the biceps, triceps, brachioradialis, and knees and 0 at both ankles. The plantar responses were extensor bilaterally. COORDINATION, STANCE & GAIT : Could not be tested. Impression/Recommendations Diagnostic Impression 1. Ms Debi Werner is an 87-year-old, right-handed, lady, who does have past history of depression, hypertension, thyroid disease, spinal stenosis , atrial fibrillation, and dementia, who recently had left humerus fracture that was treated surgically. Following surgery, she became more altered than at baseline. She was then stabilized at [facility] and then sent to a [facility]. At the [facility], she apparently vomited and aspirated and as a result of that had to be readmitted to [facility] for an aspiration pneumonia and sepsis. 2. She looks about the same as yesterday. She is able to maintain arousal for less than a minute. 3. On neurological examination, at this time, she can be aroused with loud vocal stimuli, but is mute and unable to communicate in any manner. She also has right VII central facial paresis, brisker deep tendon reflexes on the right side, and extensor plantar responses bilaterally. 4. A prolonged electroencephalogram performed for two days at [facility] revealed an encephalopathy of moderate degree and in addition, left temporal interictal discharges, but no ictal phenomena. 5. An MRI scan of the brain performed recently at [facility] revealed atrophy , deep white matter disease, and a left centrum semiovale infarct. 6. Her laboratory data on my initial evaluation revealed a WBC count elevated to 12,500, an anemia with hemoglobin of 9.2 G. The chemistry panel revealed an elevated blood glucose at 141, elevated CK at 166, and lactic acid that was elevated to 7.4 when she came in. The Urinalysis revealed 1+ leukocyte esterase with 2-4 red blood cells and 2-4 white blood cells per high-power field , and a moderate amount of yeast with few bacteria. 7. The EEG done at [facility] revealed a moderately severe encephalopathy with a toxic metabolic component as evidenced by triphasic waves. 8. The patient's history, neurological examination, imaging studies, electroencephalogram findings, and laboratory data are most compatible with an underlying dementia with superimposed toxic encephalopathy related to her pneumonia and sepsis. 9. 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 10. Her altered mental state is related to the ongoing encephalopathy. Recommendations 1. Continue present management including aggressive treatment of the patient's infectious process and respiratory process. 2. Watch her off anti-seizure medicines. 3. Observe closely. Michael Cross M.D., M.S.P.H. MICHAEL CROSS Mar 02, 2017 12:49
[2017-03-02] MEDS: Ipratropium 0.02% Inh Soln 2.5ml UD HHN PRN (12:53)
--- NOTE | 2017-03-02 13:10 | Pulmonology Progress Note ---
Assessment/Plan Assessment/Plan 1. Sepsis due to pneumonia. 2. Pneumonia. 3. Dementia. 4. Lactic acidosis. 5. Left humerus fracture. 6. Status post stroke. 7. Paroxysmal atrial fibrillation. 8. Seizure disorder. 9. Hyperglycemia. does not need trach now ok for PEG high risk for resp failure in future full code nper family cont abx, IV agree w LTAC or SNF Subjective ROS Limited/Unobtainable: Yes Respiratory: Reports: productive cough, shortness of breath Allergies: Coded Allergies: NO KNOWN ALLERGIES (Unverified Allergy, Unknown, 08/24/15) Objective Last 24 Hour Vital Signs Date Time Temp Pulse Resp B/P (MAP) Pulse Ox O2 Delivery O2 Flow Rate FiO2 03/02/17 13:00 78 16 99 Venturi Mask 8.0 40 03/02/17 12:50 77 14 98 Venturi Mask 8.0 40 03/02/17 12:50 40 03/02/17 11:54 97.3 78 22 137/65 95 Venturi Mask 10.0 03/02/17 08:00 100 03/02/17 07:59 97.7 105 22 157/67 95 Venturi Mask 10.0 03/02/17 04:15 98.2 108 20 152/74 94 Simple Mask 03/02/17 04:13 103 03/02/17 00:00 98.4 106 20 140/71 94 Simple Mask 03/01/17 23:39 103 03/01/17 23:29 105 20 98 Venturi Mask 10.0 40 03/01/17 23:14 104 22 95 Venturi Mask 10.0 40 03/01/17 23:14 40 03/01/17 20:21 97.0 50 20 128/76 98 Simple Mask 03/01/17 19:40 97 18 98 Venturi Mask 10.0 40 03/01/17 19:20 95 Venturi Mask 10.0 40 03/01/17 19:20 40 03/01/17 19:20 Venturi Mask 10.0 40 03/01/17 19:20 80 16 95 Venturi Mask 10.0 40 03/01/17 19:00 99 03/01/17 16:02 97.8 90 22 142/86 96 Simple Mask 10.0 03/01/17 16:00 98 03/01/17 15:59 99 20 Venturi Mask 10.0 55 03/01/17 15:14 85 20 99 Venturi Mask 10.0 40 03/01/17 15:14 40 03/01/17 15:08 81 20 96 Venturi Mask 10.0 40 Intake and Output 03/02/17 03/03/17 19:00 07:00 # Voids 2 # Bowel Movements 3 General Appearance: other - some resp distress when moved about the bed by nurses to clean her Respiratory/Chest: rhonchi, expiratory wheezing Cardiovascular: normal rate Current Medications Medications (Trade) Dose Ordered Sig/Autumn Route PRN Reason Start Time Stop Time Status Last Admin Dose Admin Chlorhexidine Gluconate (Lauren-Hex 2%) 1 applic DAILY TOPIC 03/03/17 09:00 04/02/17 08:59 Heparin Sodium (Porcine) (Heparin 5000 units/ml) 5,000 units Q12H SUBQ 02/24/17 21:00 03/26/17 20:59 03/01/17 20:39 Heparin Sodium/ Sodium Chloride (Heparin 2000 units/Ns 1000ml premix) 2,000 unit ONCE ONCE INJ 03/02/17 15:00 03/02/17 15:01 Ipratropium [place] (Atrovent) 500 mcg Q4H PRN HHN Shortness of Breath 03/02/17 12:45 03/07/17 12:44 03/02/17 12:53 Lidocaine HCl (Xylocaine 1% 30ml) 30 ml NEEDED PRN INJ For Pain 03/02/17 12:00 03/03/17 23:59 Multivitamins 10 ml/Dextrose/ Electrolytes 1,010 ml @ 75 mls/hr Q24H IV 02/27/17 09:00 03/29/17 08:59 03/01/17 09:00 Pantoprazole (Protonix) 40 mg EVERY 12 HOURS IVP 02/24/17 12:00 03/26/17 11:59 03/01/17 20:37 Piperacillin Sod/ Tazobactam Sod 3.375 gm/Dextrose 110 ml @ 27.5 mls/hr EVERY 8 HOURS IV 02/24/17 14:00 03/03/17 13:59 03/02/17 06:28 Vancomycin HCl (Vanco rx to dose) 1 ea DAILY PRN MISC PER RX PROTOCOL 02/24/17 09:00 03/26/17 08:59 Vancomycin/Sodium Chloride 250 ml @ 166.667 mls/hr Q24H IVPB 02/28/17 09:00 03/05/17 08:59 03/01/17 09:34 PAULINA ANAND Mar 02, 2017 13:10
[2017-03-02 15:46] VITALS: BP 143/67
[2017-03-02] MEDS ORDERED: Lidocaine 1% MPF 10mg/ml 5ml INJ ONE (16:00)
--- NOTE | 2017-03-02 16:07 | Geriatric Progress Note ---
Assessment/Plan Problems: (1) Dementia (2) Depression, major, recurrent, severe with psychosis (3) Dysphagia due to recent cerebrovascular accident (CVA) (4) Abnormal EKG (5) Pneumonia (6) Severe sepsis (7) Respiratory distress (8) Comminuted left humeral fracture with routine healing Assessment/Plan Clinically without major shift. IV access ordered per radiology. PEG when deemed stable for procedure. Will discuss d/c with Dr. Carranza. Continue other tx. Discussed with: hospital staff Subjective Interval Events Patient not in obvious distress. Unresponsive at present. EEG with significant encephalopathy. IV access an issue. PICC not currently possible because of L humeral fx, R arm swelling. Central line ordered. Repeat CXR with similar appearance to 02/26. Subjective Does not respond. Geriatric Geriatric Last 24 Hour Vital Signs Date Time Temp Pulse Resp B/P (MAP) Pulse Ox O2 Delivery O2 Flow Rate FiO2 03/02/17 15:46 97.5 79 20 143/67 97 Venturi Mask 15.0 03/02/17 13:00 78 16 99 Venturi Mask 8.0 40 03/02/17 12:50 77 14 98 Venturi Mask 8.0 40 03/02/17 12:50 40 03/02/17 12:00 85 03/02/17 11:54 97.3 78 22 137/65 95 Venturi Mask 10.0 03/02/17 08:00 100 03/02/17 07:59 97.7 105 22 157/67 95 Venturi Mask 10.0 03/02/17 04:15 98.2 108 20 152/74 94 Simple Mask 03/02/17 04:13 103 03/02/17 00:00 98.4 106 20 140/71 94 Simple Mask 03/01/17 23:39 103 03/01/17 23:29 105 20 98 Venturi Mask 10.0 40 03/01/17 23:14 104 22 95 Venturi Mask 10.0 40 03/01/17 23:14 40 03/01/17 20:21 97.0 50 20 128/76 98 Simple Mask 03/01/17 19:40 97 18 98 Venturi Mask 10.0 40 03/01/17 19:20 95 Venturi Mask 10.0 40 03/01/17 19:20 40 03/01/17 19:20 Venturi Mask 10.0 40 03/01/17 19:20 80 16 95 Venturi Mask 10.0 40 03/01/17 19:00 99 03/01/17 16:02 97.8 90 22 142/86 96 Simple Mask 10.0 03/01/17 16:00 98 03/01/17 15:59 99 20 Venturi Mask 10.0 55 Intake and Output 03/02/17 03/03/17 19:00 07:00 # Voids 2 # Bowel Movements 3 Current Medications Medications (Trade) Dose Ordered Sig/Autumn Route PRN Reason Start Time Stop Time Status Last Admin Dose Admin Chlorhexidine Gluconate (Lauren-Hex 2%) 1 applic DAILY TOPIC 03/03/17 09:00 04/02/17 08:59 Heparin Sodium (Porcine) (Heparin 5000 units/ml) 5,000 units Q12H SUBQ 02/24/17 21:00 03/26/17 20:59 03/01/17 20:39 Ipratropium [place] (Atrovent) 500 mcg Q4H PRN HHN Shortness of Breath 03/02/17 12:45 03/07/17 12:44 03/02/17 12:53 Lidocaine HCl (Xylocaine 1% 30ml) 30 ml NEEDED PRN INJ For Pain 03/02/17 12:00 03/03/17 23:59 Multivitamins 10 ml/Dextrose/ Electrolytes 1,010 ml @ 75 mls/hr Q24H IV 02/27/17 09:00 03/29/17 08:59 03/01/17 09:00 Pantoprazole (Protonix) 40 mg EVERY 12 HOURS IVP 02/24/17 12:00 03/26/17 11:59 03/01/17 20:37 Piperacillin Sod/ Tazobactam Sod 3.375 gm/Dextrose 110 ml @ 27.5 mls/hr EVERY 8 HOURS IV 02/24/17 14:00 03/03/17 13:59 03/02/17 06:28 Vancomycin HCl (Vanco rx to dose) 1 ea DAILY PRN MISC PER RX PROTOCOL 02/24/17 09:00 03/26/17 08:59 Vancomycin/Sodium Chloride 250 ml @ 166.667 mls/hr Q24H IVPB 02/28/17 09:00 03/05/17 08:59 03/01/17 09:34 Height (Feet): 5 Height (Inches): 2.00 Weight (Pounds): 100 General Appearance: no apparent distress Head: normocephalic, atraumatic Eyes: bilateral anicteric Neck: no mass Respiratory: rhonchi Cardiovascular: regular rate, rhythm Gastrointestinal: normal bowel sounds, non tender, soft, no mass, no organomegaly, non-distended Musculoskeletal: no calf tenderness Edema: no edema noted Generalized Neurologic: no new focality GEETA WOOD Mar 02, 2017 16:07
[2017-03-02 16:18] LABS: MEAN CORPUSCULAR HEMOGLOBIN 31.6 PG (27.0-31.0); MEAN CORPUSCULAR HGB CONC 31.9 G/DL (32.0-36.0); MEAN CORPUSCULAR VOLUME 99 FL (80-99); MEAN PLATELET VOLUME 5.2 FL (6.5-10.1); PLATELET COUNT 320 K/UL (150-450); RED BLOOD COUNT 2.73 M/UL (4.20-5.40); RED CELL DISTRIBUTION WIDTH 13.1 % (11.6-14.8)
[2017-03-02 16:39] LABS: ANION GAP 10 (5-15); CALCIUM 9.5 mg/dL (8.6-10.2); CARBON DIOXIDE 27 mEQ/L (20-30); CHLORIDE 98 mEQ/L (98-107); CREATININE 0.6 mg/dL (0.5-0.9); HEMOLYSIS 6; POTASSIUM 3.6 mEQ/L (3.4-4.9); SODIUM 135 mEQ/L (135-145)
[2017-03-02 16:52] LABS: BASOPHILS % (MANUAL) 1 % (0-2); EOSINOPHILS % (MANUAL) 1 % (0-3); LYMPHOCYTES % (MANUAL) 11 % (20-45); NEUTROPHILS % (MANUAL) 84 % (45-75); TOTAL CELLS COUNTED 100
[2017-03-02 16:55] LABS: ANISOCYTOSIS 1+; BAND NEUTROPHILS % (MANUAL) 0 % (0-8); HYPOCHROMASIA 1+; PLATELET ESTIMATE ADEQUATE; PLATELET MORPHOLOGY NORMAL
[2017-03-02 20:00] VITALS: BP 117/64
--- NOTE | 2017-03-02 20:15 | Electroencephalogram ---
DATE OF PROCEDURE: 02/27/2017 ELECTROENCEPHALOGRAPHY REPORT REQUESTING PHYSICIAN: Scar Callahan M.D. PROCEDURE PERFORMED: Electroencephalography. Indication: The patient is an 87-year-old female with a persistent encephalopathy, described as being very lethargic, currently maintained on antibiotics. Technique: EEG was done using 18 electrodes placed on scalp to scalp, scalp to ear montages according to 10/20 International System. Throughout the recording, background activity consisted of a poorly organized mixture of 4 to 6 cycles per second activities with intermittent generalized polymorphic delta transients recurring every 1 to 2 seconds at times followed by generalized amplitude suppression. There was no significant asymmetry from [id number]. There was no spike or wave activities. Impression: Markedly abnormal EEG in the presence of severe diffuse slowing with a burst suppression pattern. Comment: Above abnormality indicate severe encephalopathy, which may represent toxic metabolic or diffuse structural lesions. Absence of paroxysmal epileptiform activities does not rule out seizure disorder. Anastacio Franklin M.D. DR: RODRICK JOB#: [id number] CC:
--- NOTE | 2017-03-02 20:52 | General Progress Note ---
Assessment/Plan Assessment/Plan Assessment - Resp failure - improving - aspiration risk - needs PEG (has had one in past) - reactive airways - improved - OBS Recommendations - NPO - IVF - pulmonary toilet - EGD/PEG in am Subjective Allergies: Coded Allergies: NO KNOWN ALLERGIES (Unverified Allergy, Unknown, 08/24/15) Subjective Non interactive on face mask O2 more calm breathing better d/w DTR Hyun re PEG placement risk of procedure and anesthesia, kendal risk/need for intubation d/w DTR all questions answered agreed to proceed Objective Last 24 Hour Vital Signs Date Time Temp Pulse Resp B/P (MAP) Pulse Ox O2 Delivery O2 Flow Rate FiO2 03/02/17 20:27 Venturi Mask 10.0 40 03/02/17 20:27 94 Venturi Mask 10.0 40 03/02/17 20:00 97.0 100 18 117/64 95 Venturi Mask 10.0 40 03/02/17 19:00 74 18 Venturi Mask 10.0 40 03/02/17 17:41 91 03/02/17 15:46 97.5 79 20 143/67 97 Venturi Mask 15.0 03/02/17 13:00 78 16 99 Venturi Mask 8.0 40 03/02/17 12:50 77 14 98 Venturi Mask 8.0 40 03/02/17 12:50 40 03/02/17 12:00 85 03/02/17 11:54 97.3 78 22 137/65 95 Venturi Mask 10.0 03/02/17 08:00 100 03/02/17 07:59 97.7 105 22 157/67 95 Venturi Mask 10.0 03/02/17 04:15 98.2 108 20 152/74 94 Simple Mask 03/02/17 04:13 103 03/02/17 00:00 98.4 106 20 140/71 94 Simple Mask 03/01/17 23:39 103 03/01/17 23:29 105 20 98 Venturi Mask 10.0 40 03/01/17 23:14 104 22 95 Venturi Mask 10.0 40 03/01/17 23:14 40 Intake and Output 03/02/17 03/03/17 19:00 07:00 # Voids 3 # Bowel Movements 3 Laboratory Tests 03/02/17 15:50: White Blood Count 15.0H, Red Blood Count 2.73L, Hemoglobin 8.6L, Hematocrit 27.0L, Mean Corpuscular Volume 99, Mean Corpuscular Hemoglobin 31.6H, Mean Corpuscular Hemoglobin Concent 31.9L, Red Cell Distribution Width 13.1, Platelet Count 320, Mean Platelet Volume 5.2L, Neutrophils (%) (Auto) , Lymphocytes (%) (Auto) , Monocytes (%) (Auto) , Eosinophils (%) (Auto) , Basophils (%) (Auto) , Differential Total Cells Counted 100, Neutrophils % ( Manual) 84H, Lymphocytes % (Manual) 11L, Monocytes % (Manual) 3, Eosinophils % ( Manual) 1, Basophils % (Manual) 1, Band Neutrophils 0, Platelet Estimate Adequate, Platelet Morphology Normal, Hypochromasia 1+, Anisocytosis 1+, Sodium Level 135, Potassium Level 3.6, Chloride Level 98, Carbon Dioxide Level 27, Anion Gap 10, Blood Urea Nitrogen 6L, Creatinine 0.6, Estimat Glomerular Filtration Rate , Glucose Level 84, Calcium Level 9.5, Pro-B-Type Natriuretic Peptide 3957H, Vancomycin Level Trough 5.8 Height (Feet): 5 Height (Inches): 2.00 Weight (Pounds): 100 Objective Thin WW NCAT supple b/l wheezing and ronchi - improved c/t yesterday RR abd soft ND no edema (+) (L)UE immobilizer ETTA ZURITA Mar 02, 2017 20:51
[2017-03-03] VITALS (15 sets, daily range): BP systolic 123–153; BP diastolic 45–84
[2017-03-03] MEDS: Piperacillin/Tazobactam 3.375 GM in D5W 110 ML IV SCH (06:12)
--- NOTE | 2017-03-03 08:29 | Pre-Procedure Note/Attestation ---
Pre-Procedure Note/Attestation Complete Prior to Procedure Planned Procedure: not applicable Procedure Narrative: EGD/PEG Indications for Procedure Pre-Operative Diagnosis: dysphagia Attestation I attest that I discussed the nature of the procedure; its benefits; risks and complications; and alternatives (and the risks and benefits of such alternatives ), prior to the procedure, with the patient (or the patient's legal new accounts banking representative). I attest that, if there was a reasonable possibility of needing a blood transfusion, the patient (or the patient's legal new accounts banking representative) was given the [facility] standardized written summary, pursuant to the Nick Terrie Blood Safety Act ([place] Health and Safety Code # 1645, as amended). I attest that I re-evaluated the patient just prior to the surgery and that there has been no change in the patient's H&P, except as documented below: ETTA ZURITA Mar 03, 2017 08:29
[2017-03-03] MEDS ORDERED: Midazolam 2mg/2ml Inj ONE (08:30)
[2017-03-03] MEDS ORDERED: fentaNYL 100 mcg/2 mL IV ONE (08:30)
[2017-03-03] MEDS ORDERED: LR 1000ml ONE (08:30)
[2017-03-03] MEDS ORDERED: Propofol 200mg/20ml IV ONE (08:30)
[2017-03-03] MEDS ORDERED: NS 500ML IV ONE (08:30)
--- NOTE | 2017-03-03 08:38 | Anethesia Preoperative Eval ---
Anesthesia Pre-op PMH/ROS General Date of Evaluation: Mar 03, 2017 Time of Evaluation: 08:30 Anesthesiologist: CONCETTA ASA Score: ASA 3 Mallampati Score Class I : Soft palate, uvula, fauces, pillars visible Class II: Soft palate, uvula, fauces visible Class III: Soft palate, base of uvula visible Class IV: Only hard plate visible Mallampati Classification: Class II Surgeon: PARMINDER Diagnosis: DYSPHAGIA Surgical Procedure: PEG PLACEMENT Anesthesia History: none Family History: no anesthesia problems Allergies: Coded Allergies: NO KNOWN ALLERGIES (Unverified Allergy, Unknown, 08/24/15) Medications: see eMAR Anesthesia Pre-op Phys. Exam Physician Exam Last Vital Signs Date Time Temp Pulse Resp B/P (MAP) Pulse Ox O2 Delivery O2 Flow Rate FiO2 03/03/17 04:00 97.7 94 18 123/84 98 Venturi Mask 10.0 40 Airway Exam Mallampati Score: Class II Anesthesia Pre-op A/P Labs Hematology Test 03/02/17 15:50 White Blood Count 15.0 K/UL (4.8-10.8) H Red Blood Count 2.73 M/UL (4.20-5.40) L Hemoglobin 8.6 G/DL (12.0-16.0) L Hematocrit 27.0 % (37.0-47.0) L Mean Corpuscular Volume 99 FL (80-99) Mean Corpuscular Hemoglobin 31.6 PG (27.0-31.0) H Mean Corpuscular Hemoglobin Concent 31.9 G/DL (32.0-36.0) L Red Cell Distribution Width 13.1 % (11.6-14.8) Platelet Count 320 K/UL (150-450) Mean Platelet Volume 5.2 FL (6.5-10.1) L Neutrophils (%) (Auto) % (45.0-75.0) Lymphocytes (%) (Auto) % (20.0-45.0) Monocytes (%) (Auto) % (1.0-10.0) Eosinophils (%) (Auto) % (0.0-3.0) Basophils (%) (Auto) % (0.0-2.0) Differential Total Cells Counted 100 Neutrophils % (Manual) 84 % (45-75) H Lymphocytes % (Manual) 11 % (20-45) L Monocytes % (Manual) 3 % (1-10) Eosinophils % (Manual) 1 % (0-3) Basophils % (Manual) 1 % (0-2) Band Neutrophils 0 % (0-8) Platelet Estimate Adequate Platelet Morphology Normal Hypochromasia 1+ Anisocytosis 1+ Chemistry Test 03/02/17 15:50 Sodium Level 135 mEQ/L (135-145) Potassium Level 3.6 mEQ/L (3.4-4.9) Chloride Level 98 mEQ/L (98-107) Carbon Dioxide Level 27 mEQ/L (20-30) Anion Gap 10 (5-15) Blood Urea Nitrogen 6 mg/dL (7-23) L Creatinine 0.6 mg/dL (0.5-0.9) Estimat Glomerular Filtration Rate mL/min (>60) Glucose Level 84 mg/dL (74-106) Calcium Level 9.5 mg/dL (8.6-10.2) Pro-B-Type Natriuretic Peptide 3957 pg/mL (0-450) Ernie Dejesus M.D. Mar 03, 2017 08:37
--- NOTE | 2017-03-03 08:39 | 48 Hour Post Anesthesia Eval ---
Post Anesthesia Evaluation Procedure: PEG PLACEMENT Date of Evaluation: Mar 05, 2017 Time of Evaluation: 08:30 Blood Pressure Systolic: 155 0: 83 Pulse Rate: 61 Respiratory Rate: 16 Temperature (Fahrenheit): 99 O2 Sat by Pulse Oximetry: 99 Airway: patent Nausea: No Vomiting: No Pain Intensity: 0 If pain is > 6 Comment: 0 Hydration Status: adequate Mental Status/LOC: patient returned to baseline Follow-up care needed: patient intructions given Ernie Terrazas M.D. Mar 03, 2017 08:39
--- NOTE | 2017-03-03 08:57 | 48 Hour Post Anesthesia Eval ---
Post Anesthesia Evaluation Procedure: PEG PLACEMENT Date of Evaluation: Mar 05, 2017 Time of Evaluation: 08:00 Blood Pressure Systolic: 171 0: 75 Pulse Rate: 80 Respiratory Rate: 15 Temperature (Fahrenheit): 98 O2 Sat by Pulse Oximetry: 99 Airway: patent Nausea: No Vomiting: No Pain Intensity: 0 If pain is > 6 Comment: 0 Hydration Status: adequate Follow-up care needed: patient intructions given Ernie Terrazas M.D. Mar 03, 2017 08:57
--- NOTE | 2017-03-03 08:59 | Immediate Post-Op Evaluation ---
Immediate Post-Op Evalulation Immediate Post-Op Evalulation Procedure: PEG PLACEMENT Date of Evaluation: Mar 03, 2017 Time of Evaluation: 09:00 IV Fluids: LRS Blood Products: 0 Estimated Blood Loss: 0 Urinary Output: 0 Blood Pressure Systolic: 142 Blood Pressure Diastolic: 90 Pulse Rate: 78 Respiratory Rate: 16 O2 Sat by Pulse Oximetry: 99 Temperature (Fahrenheit): 98 Pain Score (1-10): 0 Nausea: No Vomiting: No Patient Status: awake, patent Hydration Status: adequate Given Within 1 Hr of Incision: Ernie Johnson M.D. Mar 03, 2017 08:59
[2017-03-03] MEDS: Pantoprazole Inj IVP SCH ×2 (09:00→21:54)
[2017-03-03] MEDS: Dyna-Hex 2% Top Sol 2oz TOPIC SCH (09:00)
[2017-03-03] MEDS: Heparin 5000 units/ml inj SUBQ SCH ×2 (09:00→21:56)
[2017-03-03] MEDS: Ipratropium 0.02% Inh Soln 2.5ml UD HHN PRN (10:17)
[2017-03-03] MEDS: Vancomycin 750mg/NS 250ml IVPB SCH (10:56)
--- NOTE | 2017-03-03 11:26 | Pulmonology Progress Note ---
Assessment/Plan Assessment/Plan 1. Sepsis due to pneumonia. 2. Pneumonia. 3. Dementia. 4. Lactic acidosis. 5. Left humerus fracture. 6. Status post stroke. 7. Paroxysmal atrial fibrillation. 8. Seizure disorder. 9. Hyperglycemia. disc w Dr Callahan high risk for resp failure in future full code nper family cont abx, IV (new PICC needed) PEG done agree w LTAC or SNF Subjective ROS Limited/Unobtainable: Yes Respiratory: Reports: shortness of breath Allergies: Coded Allergies: NO KNOWN ALLERGIES (Unverified Allergy, Unknown, 08/24/15) Objective Last 24 Hour Vital Signs Date Time Temp Pulse Resp B/P (MAP) Pulse Ox O2 Delivery O2 Flow Rate FiO2 03/03/17 09:20 98.9 83 25 138/73 100 Venturi Mask 10.0 03/03/17 09:05 87 20 151/63 98 Venturi Mask 10.0 03/03/17 09:00 78 29 134/69 98 Venturi Mask 10.0 03/03/17 08:59 78 16 99 03/03/17 08:57 80 15 99 03/03/17 08:55 98.7 73 32 153/56 98 Venturi Mask 10.0 03/03/17 08:39 61 16 99 03/03/17 08:00 97.0 95 20 131/77 98 Venturi Mask 10.0 03/03/17 04:00 97.7 94 18 123/84 98 Venturi Mask 10.0 40 03/03/17 03:36 74 03/03/17 00:00 97.3 81 18 137/72 98 Venturi Mask 10.0 40 03/02/17 20:27 Venturi Mask 10.0 40 03/02/17 20:27 94 Venturi Mask 10.0 40 03/02/17 20:10 78 03/02/17 20:00 97.0 100 18 117/64 95 Venturi Mask 10.0 40 03/02/17 19:00 74 18 Venturi Mask 10.0 40 03/02/17 17:41 91 03/02/17 15:46 97.5 79 20 143/67 97 Venturi Mask 15.0 03/02/17 13:00 78 16 99 Venturi Mask 8.0 40 03/02/17 12:50 77 14 98 Venturi Mask 8.0 40 03/02/17 12:50 40 03/02/17 12:00 85 03/02/17 11:54 97.3 78 22 137/65 95 Venturi Mask 10.0 Intake and Output 03/03/17 03/04/17 19:00 07:00 Intake Total 150 ml Balance 150 ml Intake IV Total 150 ml General Appearance: other - mild SOB HEENT: atraumatic Respiratory/Chest: expiratory wheezing Cardiovascular: normal rate Laboratory Tests 03/02/17 15:50: White Blood Count 15.0H, Red Blood Count 2.73L, Hemoglobin 8.6L, Hematocrit 27.0L, Mean Corpuscular Volume 99, Mean Corpuscular Hemoglobin 31.6H, Mean Corpuscular Hemoglobin Concent 31.9L, Red Cell Distribution Width 13.1, Platelet Count 320, Mean Platelet Volume 5.2L, Neutrophils (%) (Auto) , Lymphocytes (%) (Auto) , Monocytes (%) (Auto) , Eosinophils (%) (Auto) , Basophils (%) (Auto) , Differential Total Cells Counted 100, Neutrophils % ( Manual) 84H, Lymphocytes % (Manual) 11L, Monocytes % (Manual) 3, Eosinophils % ( Manual) 1, Basophils % (Manual) 1, Band Neutrophils 0, Platelet Estimate Adequate, Platelet Morphology Normal, Hypochromasia 1+, Anisocytosis 1+, Sodium Level 135, Potassium Level 3.6, Chloride Level 98, Carbon Dioxide Level 27, Anion Gap 10, Blood Urea Nitrogen 6L, Creatinine 0.6, Estimat Glomerular Filtration Rate , Glucose Level 84, Calcium Level 9.5, Pro-B-Type Natriuretic Peptide 3957H, Vancomycin Level Trough 5.8 Current Medications Medications (Trade) Dose Ordered Sig/Autumn Route PRN Reason Start Time Stop Time Status Last Admin Dose Admin Chlorhexidine Gluconate (Lauren-Hex 2%) 1 applic DAILY TOPIC 03/03/17 09:00 04/02/17 08:59 Heparin Sodium (Porcine) (Heparin 5000 units/ml) 5,000 units Q12H SUBQ 02/24/17 21:00 03/26/17 20:59 03/02/17 21:16 Ipratropium [place] (Atrovent) 500 mcg Q4H PRN HHN Shortness of Breath 03/02/17 12:45 03/07/17 12:44 03/03/17 10:17 Lidocaine HCl (Xylocaine 1% 30ml) 30 ml NEEDED PRN INJ For Pain 03/02/17 12:00 03/03/17 23:59 Multivitamins 10 ml/Dextrose/ Electrolytes 1,010 ml @ 75 mls/hr Q24H IV 02/27/17 09:00 03/29/17 08:59 03/02/17 18:35 Pantoprazole (Protonix) 40 mg EVERY 12 HOURS IVP 02/24/17 12:00 03/26/17 11:59 03/03/17 09:00 Piperacillin Sod/ Tazobactam Sod 3.375 gm/Dextrose 110 ml @ 27.5 mls/hr EVERY 8 HOURS IV 02/24/17 14:00 03/03/17 13:59 03/03/17 06:12 Vancomycin HCl (Vanco rx to dose) 1 ea DAILY PRN MISC PER RX PROTOCOL 02/24/17 09:00 03/26/17 08:59 Vancomycin/Sodium Chloride 250 ml @ 166.667 mls/hr Q24H IVPB 02/28/17 09:00 03/05/17 08:59 03/03/17 10:56 PAULINA ANAND Mar 03, 2017 11:26
[2017-03-03] MEDS ORDERED: KCL IV SCH (12:30)
[2017-03-03] MEDS ORDERED: MULTIVITAMIN IV SCH (12:30)
[2017-03-03] MEDS ORDERED: [UNRECOGNIZED DRUG - OTHER] IV SCH (12:30)
[2017-03-03] MEDS ORDERED: D5 IV SCH (12:30)
[2017-03-03] MEDS ORDERED: Lidocaine 1% Plain 30 ml INJ PRN (13:00)
[2017-03-03] MEDS ORDERED: Heparin 2000 units/Ns 1000ml INJ PRN (13:00)
--- NOTE | 2017-03-03 15:04 | Endoscopy Procedure Note ---
Endoscopy Procedure Note Indication for Procedure: dysphagia Procedures Performed: PEG Operative Findings/Diagnosis: s/p PEG Specimen: none Pt Tolerated Procedure Well: Yes Estimated Blood Loss: none Anesthesiologist: see report Anesthesia: moderate sedation Medication Given: see anesthesia record Implant(s) used?: No 50 yrs or older w/o bx or poly: Not Applicable 10yrs. F/U not recommended: Not Applicable If not recommended, why?: ETTA ZURITA Mar 03, 2017 15:04
--- NOTE | 2017-03-03 15:07 | Brief Operative Note ---
Immediate Post Operative Note Operative Note Chief Complaint: dysphagia Pre-op Diagnosis: dysphagia Procedure: PEG Post-op Diagnosis: PEG Surgeon: Greg Anesthesiologist: see report Anesthesia: MAC Specimen: none Complications: none Condition: stable Fluids: see report Estimated Blood Loss: none Drains: none Implant(s) used?: No ETTA ZURITA Mar 03, 2017 15:07
--- NOTE | 2017-03-03 15:09 | Diagnostic Imaging Report ---
Indication: Patient requires central venous access. Findings: After the indications, procedure, risks, complications, and alternatives of the procedure were explained, written informed consent was obtained. The neck was prepped with alcohol. All elements of maximal sterile barrier technique were followed including usage of a cap, mask, sterile gown, sterile gloves, hand hygiene and a large sterile sheet. 1% lidocaine was used to anesthetize the skin. Sonographic evaluation of the neck was performed demonstrating a patent and compressible vein. Access was obtained under real-time ultrasound guidance using an 18 gauge needle and a digital image was saved in archive. An 035 wire was then advanced into the vein. Needle exchanged or a dilator. A central venous catheter was then advanced over the wire. Wire was removed. Catheter was secured to the skin using 2-0 Prolene suture. Both ports aspirate and flush easily. Fluoroscopic imaging was utilized to negotiate the 035 wire into the vein. Final position of the intravenous catheter was confirmed by fluoroscopy. Total fluoroscopic times O.3 minutes. The catheter is cleared for use. Impression: Successful placement of right jugular central venous catheter.
--- NOTE | 2017-03-03 15:10 | General Progress Note ---
Assessment/Plan Assessment/Plan Assessment - anemia - stable, patient not candidate for GI w/u - Resp failure - improving - aspiration risk - s/p PEG - reactive airways - improved - OBS Recommendations - NPO today - begin TF in am - check Iron panel - IVF - pulmonary toilet - d/c planning Subjective Allergies: Coded Allergies: NO KNOWN ALLERGIES (Unverified Allergy, Unknown, 08/24/15) Subjective Non interactive on face mask O2 calm d/w DTR at bedside Objective Last 24 Hour Vital Signs Date Time Temp Pulse Resp B/P (MAP) Pulse Ox O2 Delivery O2 Flow Rate FiO2 03/03/17 14:05 69 18 123/49 99 Venturi Mask 15.0 03/03/17 14:00 70 26 131/45 100 Venturi Mask 15.0 03/03/17 13:55 71 26 126/49 99 Venturi Mask 15.0 03/03/17 13:50 72 26 128/55 99 Venturi Mask 15.0 03/03/17 12:58 82 28 15.0 03/03/17 12:31 97.7 70 20 145/79 95 Venturi Mask 10.0 03/03/17 09:20 98.9 83 25 138/73 100 Venturi Mask 10.0 03/03/17 09:05 87 20 151/63 98 Venturi Mask 10.0 03/03/17 09:00 78 29 134/69 98 Venturi Mask 10.0 03/03/17 08:59 78 16 99 03/03/17 08:57 80 15 99 03/03/17 08:55 98.7 73 32 153/56 98 Venturi Mask 10.0 03/03/17 08:40 Venturi Mask 10.0 40 03/03/17 08:40 96 10.0 40 03/03/17 08:40 72 20 Venturi Mask 10.0 40 03/03/17 08:39 61 16 99 03/03/17 08:00 97.0 95 20 131/77 98 Venturi Mask 10.0 03/03/17 04:00 97.7 94 18 123/84 98 Venturi Mask 10.0 40 03/03/17 03:36 74 03/03/17 00:00 97.3 81 18 137/72 98 Venturi Mask 10.0 40 03/02/17 20:27 Venturi Mask 10.0 40 03/02/17 20:27 94 Venturi Mask 10.0 40 03/02/17 20:10 78 03/02/17 20:00 97.0 100 18 117/64 95 Venturi Mask 10.0 40 03/02/17 19:00 74 18 Venturi Mask 10.0 40 03/02/17 17:41 91 03/02/17 15:46 97.5 79 20 143/67 97 Venturi Mask 15.0 Intake and Output 03/03/17 03/04/17 19:00 07:00 Intake Total 640.834 ml Balance 640.834 ml Intake IV Total 640.834 ml # Voids 2 Laboratory Tests 03/02/17 15:50: White Blood Count 15.0H, Red Blood Count 2.73L, Hemoglobin 8.6L, Hematocrit 27.0L, Mean Corpuscular Volume 99, Mean Corpuscular Hemoglobin 31.6H, Mean Corpuscular Hemoglobin Concent 31.9L, Red Cell Distribution Width 13.1, Platelet Count 320, Mean Platelet Volume 5.2L, Neutrophils (%) (Auto) , Lymphocytes (%) (Auto) , Monocytes (%) (Auto) , Eosinophils (%) (Auto) , Basophils (%) (Auto) , Differential Total Cells Counted 100, Neutrophils % ( Manual) 84H, Lymphocytes % (Manual) 11L, Monocytes % (Manual) 3, Eosinophils % ( Manual) 1, Basophils % (Manual) 1, Band Neutrophils 0, Platelet Estimate Adequate, Platelet Morphology Normal, Hypochromasia 1+, Anisocytosis 1+, Sodium Level 135, Potassium Level 3.6, Chloride Level 98, Carbon Dioxide Level 27, Anion Gap 10, Blood Urea Nitrogen 6L, Creatinine 0.6, Estimat Glomerular Filtration Rate , Glucose Level 84, Calcium Level 9.5, Pro-B-Type Natriuretic Peptide 3957H, Vancomycin Level Trough 5.8 Height (Feet): 5 Height (Inches): 5.00 Weight (Pounds): 100 Objective Thin WW NCAT supple b/l ronchi RR abd soft ND no edema (+) (L)UE immobilizer ETTA ZURITA Mar 03, 2017 15:10
--- NOTE | 2017-03-03 15:18 | Geriatric Progress Note ---
Assessment/Plan Problems: (1) Dementia (2) Depression, major, recurrent, severe with psychosis (3) Dysphagia due to recent cerebrovascular accident (CVA) (4) Abnormal EKG (5) Pneumonia (6) Severe sepsis (7) Respiratory distress (8) Comminuted left humeral fracture with routine healing Assessment/Plan PEG initiated, feedings probably tomorrow. Reviewed with dtr. Given significant encephalopathy on EEG, and fact that patient has been off antidepressants and other orals for long period, will not resume at present. Hope patient's mentation improves, before deciding about psychiatric meds. Continue other tx, recheck labs. Reviewed d/c options with dtr. She will look into choices and let us know what she prefers. Reviewed status, risks, prognosis with dtr. Discussed with: family, hospital staff Subjective Interval Events Patient opens eyes slightly, but does not offer any definite response. Does have some blink to threat. PEG placed, central line placed. Feedings to be started tomorrow. Respiratory status about the same on mask. Subjective Does not respond. Geriatric Geriatric Last 24 Hour Vital Signs Date Time Temp Pulse Resp B/P (MAP) Pulse Ox O2 Delivery O2 Flow Rate FiO2 03/03/17 14:05 69 18 123/49 99 Venturi Mask 15.0 03/03/17 14:00 70 26 131/45 100 Venturi Mask 15.0 03/03/17 13:55 71 26 126/49 99 Venturi Mask 15.0 03/03/17 13:50 72 26 128/55 99 Venturi Mask 15.0 03/03/17 12:58 82 28 15.0 03/03/17 12:31 97.7 70 20 145/79 95 Venturi Mask 10.0 03/03/17 09:20 98.9 83 25 138/73 100 Venturi Mask 10.0 03/03/17 09:05 87 20 151/63 98 Venturi Mask 10.0 03/03/17 09:00 78 29 134/69 98 Venturi Mask 10.0 03/03/17 08:59 78 16 99 03/03/17 08:57 80 15 99 03/03/17 08:55 98.7 73 32 153/56 98 Venturi Mask 10.0 03/03/17 08:40 Venturi Mask 10.0 40 03/03/17 08:40 96 10.0 40 03/03/17 08:40 72 20 Venturi Mask 10.0 40 03/03/17 08:39 61 16 99 03/03/17 08:00 97.0 95 20 131/77 98 Venturi Mask 10.0 03/03/17 04:00 97.7 94 18 123/84 98 Venturi Mask 10.0 40 03/03/17 03:36 74 03/03/17 00:00 97.3 81 18 137/72 98 Venturi Mask 10.0 40 03/02/17 20:27 Venturi Mask 10.0 40 03/02/17 20:27 94 Venturi Mask 10.0 40 03/02/17 20:10 78 03/02/17 20:00 97.0 100 18 117/64 95 Venturi Mask 10.0 40 03/02/17 19:00 74 18 Venturi Mask 10.0 40 03/02/17 17:41 91 03/02/17 15:46 97.5 79 20 143/67 97 Venturi Mask 15.0 Intake and Output 03/03/17 03/04/17 19:00 07:00 Intake Total 640.834 ml Balance 640.834 ml Intake IV Total 640.834 ml # Voids 2 Laboratory Tests Test 03/02/17 15:50 White Blood Count 15.0 K/UL (4.8-10.8) H Red Blood Count 2.73 M/UL (4.20-5.40) L Hemoglobin 8.6 G/DL (12.0-16.0) L Hematocrit 27.0 % (37.0-47.0) L Mean Corpuscular Volume 99 FL (80-99) Mean Corpuscular Hemoglobin 31.6 PG (27.0-31.0) H Mean Corpuscular Hemoglobin Concent 31.9 G/DL (32.0-36.0) L Red Cell Distribution Width 13.1 % (11.6-14.8) Platelet Count 320 K/UL (150-450) Mean Platelet Volume 5.2 FL (6.5-10.1) L Neutrophils (%) (Auto) % (45.0-75.0) Lymphocytes (%) (Auto) % (20.0-45.0) Monocytes (%) (Auto) % (1.0-10.0) Eosinophils (%) (Auto) % (0.0-3.0) Basophils (%) (Auto) % (0.0-2.0) Differential Total Cells Counted 100 Neutrophils % (Manual) 84 % (45-75) H Lymphocytes % (Manual) 11 % (20-45) L Monocytes % (Manual) 3 % (1-10) Eosinophils % (Manual) 1 % (0-3) Basophils % (Manual) 1 % (0-2) Band Neutrophils 0 % (0-8) Platelet Estimate Adequate Platelet Morphology Normal Hypochromasia 1+ Anisocytosis 1+ Sodium Level 135 mEQ/L (135-145) Potassium Level 3.6 mEQ/L (3.4-4.9) Chloride Level 98 mEQ/L (98-107) Carbon Dioxide Level 27 mEQ/L (20-30) Anion Gap 10 (5-15) Blood Urea Nitrogen 6 mg/dL (7-23) L Creatinine 0.6 mg/dL (0.5-0.9) Estimat Glomerular Filtration Rate mL/min (>60) Glucose Level 84 mg/dL (74-106) Calcium Level 9.5 mg/dL (8.6-10.2) Pro-B-Type Natriuretic Peptide 3957 pg/mL (0-450) H Vancomycin Level Trough 5.8 ug/mL (5.0-12.0) Current Medications Medications (Trade) Dose Ordered Sig/Autumn Route PRN Reason Start Time Stop Time Status Last Admin Dose Admin Chlorhexidine Gluconate (Lauren-Hex 2%) 1 applic DAILY TOPIC 03/03/17 09:00 04/02/17 08:59 Heparin Sodium (Porcine) (Heparin 5000 units/ml) 5,000 units Q12H SUBQ 02/24/17 21:00 03/26/17 20:59 03/02/17 21:16 Heparin Sodium/ Sodium Chloride (Heparin 2000 units/Ns 1000ml premix) 2,000 unit ONCE PRN INJ CENTRAL LINE PLACEMENT 03/03/17 13:00 03/04/17 23:59 Ipratropium [place] (Atrovent) 500 mcg Q4H PRN HHN Shortness of Breath 03/02/17 12:45 03/07/17 12:44 03/03/17 10:17 Lidocaine HCl (Xylocaine 1% 30ml) 30 ml ONCE PRN INJ CENTRAL LINE PLACEMENT 03/03/17 13:00 03/04/17 23:59 Multivitamins 10 ml/Dextrose/ Electrolytes 1,010 ml @ 75 mls/hr Q24H IV 03/03/17 12:30 04/02/17 12:29 Pantoprazole (Protonix) 40 mg EVERY 12 HOURS IVP 02/24/17 12:00 03/26/17 11:59 03/03/17 09:00 Vancomycin HCl (Vanco rx to dose) 1 ea DAILY PRN MISC PER RX PROTOCOL 02/24/17 09:00 03/26/17 08:59 Vancomycin/Sodium Chloride 250 ml @ 166.667 mls/hr Q24H IVPB 02/28/17 09:00 03/05/17 08:59 03/03/17 10:56 Height (Feet): 5 Height (Inches): 5.00 Weight (Pounds): 100 General Appearance: other - opens eyes, no other response. Head: normocephalic, atraumatic Eyes: bilateral anicteric Neck: no mass Respiratory: rales, rhonchi Cardiovascular: regular rate, rhythm Gastrointestinal: normal bowel sounds, non tender, soft, no mass, no organomegaly, non-distended Musculoskeletal: no calf tenderness Edema: no edema noted Generalized Neurologic: no new focality GEETA WOOD Mar 03, 2017 15:18
--- NOTE | 2017-03-03 16:26 | Neurology Progress Note ---
Interim History Interim History Interim History Ms. Werner continues to be poorly responsive. She can be aroused on painful stimulation and is able to maintain arousal for as long as she is kept occupied. She is non-verbal. She does not follow any commands. She is breathing more comfortably. There has been no significant improvement in her condition. Review of Systems Neuro Review of Systems Unable to obtain. Objective Physical Exam Last Vital Signs Date Time Temp Pulse Resp B/P (MAP) Pulse Ox O2 Delivery O2 Flow Rate FiO2 03/03/17 14:05 69 18 123/49 99 Venturi Mask 15.0 03/03/17 12:31 97.7 03/03/17 08:40 40 Neurologic Exam Objective PHYSICAL EXAMINATION: GENERAL: She is a well-developed but lean lady, lying in bed, in no acute distress. HEAD: Normocephalic and atraumatic. EENT: Examination benign. NECK: No neck rigidity was observed. NEUROLOGIC EXAMINATION: MENTAL STATUS EXAMINATION: She was sleeping when I went to see her. She did wake up on painful stimulation. She was able to maintain arousal for as long as she was kept occupied. She was mute and did not follow any commands. SPEECH: Could not be tested as she was mute. LANGUAGE: She did not follow simple commands and did not say a single word. CRANIAL NERVE EXAMINATION: II: She did blink to threat. III, IV & : The external ocular movements were full. The pupils were 4 mm in diameter, equal, round, regular, and reactive sluggishly to light. V & VII: The corneal reflexes were present bilaterally, but left-sided reflex was brisker than the right. In addition, she also had flattening of the right nasolabial fold and mild right VII central facial paresis. VIII: She did respond to sounds. IX & X: The gag reflex was present, but significantly diminished. XI: The sternocleidomastoids and trapezii did function. XII: The tongue was in the midline without any fasciculations or atrophy. MOTOR SYSTEM: The tone was normal in the right upper extremity and both lower extremities. It could not be tested adequately in the left upper extremity because the left upper extremity was in an immobilizer. Examination of muscle mass revealed generalized muscle wasting. Examination of power was impossible to perform on individual muscle groups. 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 SENSORY EXAMINATION: She responded appropriately to deep pain with a moan and withdrawal. She could not cooperate for other sensory modalities. REFLEXES: 2++ on the right and 1+ on the left at the biceps, triceps, brachioradialis, and knees and 0 at both ankles. The plantar responses were extensor bilaterally. COORDINATION, STANCE & GAIT : Could not be tested. Impression/Recommendations Diagnostic Impression 1. Ms Debi Werner is an 87-year-old, right-handed, lady, who does have past history of depression, hypertension, thyroid disease, spinal stenosis , atrial fibrillation, and dementia, who recently had left humerus fracture that was treated surgically. Following surgery, she became more altered than at baseline. She was then stabilized at [facility] and then sent to a skilled nursing. At the skilled nursing, she apparently vomited and aspirated and as a result of that had to be readmitted to [facility] for an aspiration pneumonia and sepsis. 2. She looks about the same as yesterday. She is able to maintain arousal for as long as she is kept occupied. 3. On neurological examination, at this time, she can be aroused with painful stimuli, but is mute and unable to communicate in any manner. She also has right VII central facial paresis, brisker deep tendon reflexes on the right side , and extensor plantar responses bilaterally. 4. A prolonged electroencephalogram performed for two days at [facility] revealed an encephalopathy of moderate degree and in addition, left temporal interictal discharges, but no ictal phenomena. 5. An MRI scan of the brain performed recently at [facility] revealed atrophy , deep white matter disease, and a left centrum semiovale infarct. 6. Her laboratory data on my initial evaluation revealed a WBC count elevated to 12,500, an anemia with hemoglobin of 9.2 G. The chemistry panel revealed an elevated blood glucose at 141, elevated CK at 166, and lactic acid that was elevated to 7.4 when she came in. The Urinalysis revealed 1+ leukocyte esterase with 2-4 red blood cells and 2-4 white blood cells per high-power field , and a moderate amount of yeast with few bacteria. 7. The EEG done at [facility] [place] revealed a moderately severe encephalopathy with a toxic metabolic component as evidenced by triphasic waves. 8. The patient's history, neurological examination, imaging studies, electroencephalogram findings, and laboratory data are most compatible with an underlying dementia with superimposed toxic encephalopathy related to her pneumonia and sepsis. 9. 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 10. Her altered mental state is related to the ongoing encephalopathy. Recommendations 1. Continue present management including aggressive treatment of the patient's infectious process and respiratory process. 2. Watch her off anti-seizure medicines. 3. PEG as planned. 4. Observe closely. Michael Cross M.D., M.S.P.[place]. MICHAEL CROSS Mar 03, 2017 16:26
[2017-03-04] VITALS: BP 155/64
[2017-03-04 04:00] VITALS: BP 137/72
[2017-03-04 04:40] LABS: MEAN CORPUSCULAR HEMOGLOBIN 33.7 PG (27.0-31.0); MEAN CORPUSCULAR HGB CONC 34.6 G/DL (32.0-36.0); MEAN CORPUSCULAR VOLUME 98 FL (80-99); MEAN PLATELET VOLUME 5.3 FL (6.5-10.1); PLATELET COUNT 385 K/UL (150-450); RED BLOOD COUNT 2.68 M/UL (4.20-5.40); WHITE BLOOD COUNT 20.2 K/UL (4.8-10.8)
[2017-03-04 04:45] LABS: INR 1.1 (0.9-1.1); PROTHROMBIN TIME 11.1 SEC (9.30-11.50)
[2017-03-04 05:46] LABS: ANION GAP 8 (5-15); CALCIUM 9.3 mg/dL (8.6-10.2); CARBON DIOXIDE 28 mEQ/L (20-30); CHLORIDE 100 mEQ/L (98-107); CREATININE 0.6 mg/dL (0.5-0.9); HEMOLYSIS 0; HEMOLYSIS 2; IRON 17 ug/dL (37-145); MAGNESIUM 1.3 mg/dL (1.7-2.5); PHOSPHORUS 2.6 mg/dL (2.5-4.8); POTASSIUM 3.5 mEQ/L (3.4-4.9); SODIUM 136 mEQ/L (135-145); TOTAL IRON BINDING CAPACITY 91 ug/dL (250-400)
[2017-03-04 08:00] VITALS: BP 146/71
[2017-03-04 08:27] LABS: BAND NEUTROPHILS % (MANUAL) 0 % (0-8); BASOPHILS % (MANUAL) 0 % (0-2); EOSINOPHILS % (MANUAL) 0 % (0-3); LYMPHOCYTES % (MANUAL) 7 % (20-45); NEUTROPHILS % (MANUAL) 90 % (45-75); PLATELET ESTIMATE ADEQUATE; PLATELET MORPHOLOGY NORMAL; TOTAL CELLS COUNTED 100
--- NOTE | 2017-03-04 08:47 | Procedure Note ---
DATE OF PROCEDURE: 03/03/2017 Procedure: Upper gastrointestinal endoscopy with gastrostomy tube placement. SURGEON: Armida Garza M.D. Anesthesia: Please see the separate anesthesiologist notes for details. PRE-ENDOSCOPIC DIAGNOSIS: Dysphagia. POST-ENDOSCOPIC DIAGNOSIS: Status post gastrostomy tube placement. Procedure In Detail: The procedure, its risks, indications, alternatives, and possible complications including, but not limited to, bleeding, infection, perforation, , and anesthesia complications, and specifically the significant risk of need for intubation were discussed with the patient's daughter and informed consent was obtained. The patient was then sedated in the supine position. A diagnostic upper endoscope was introduced through the oropharynx and advanced to the duodenum. The endoscope was then gradually withdrawn and the mucosa examined carefully. Examination of the upper gastrointestinal mucosa did not reveal any significant abnormalities. The location for the placement of gastrostomy tube was then identified by palpation and transillumination techniques. The outside skin was sterilely prepared and anesthetized. A trocar needle was used through a 1 cm incision with a single pass to gain access. The gastrostomy tube was then placed using the standard pull technique. The patient was left to recover in stable condition. RECOMMENDATIONS: 1. Observe overnight. 2. Gastrostomy site care. 3. Begin tube feedings tomorrow. 4. Aspiration precautions. Armida Garza M.D. DR: LEYLA JOB#: [id number] CC:
[2017-03-04] MEDS: Dyna-Hex 2% Top Sol 2oz TOPIC SCH (09:00)
[2017-03-04] MEDS ORDERED: Dyna-Hex 2% Top Sol 2oz TOPIC SCH (09:00)
[2017-03-04] MEDS: Pantoprazole Inj IVP SCH ×2 (10:22→21:34)
[2017-03-04] MEDS: Heparin 5000 units/ml inj SUBQ SCH ×2 (10:23→21:33)
[2017-03-04] MEDS: Vancomycin 750mg/NS 250ml IVPB SCH (10:36)
--- NOTE | 2017-03-04 11:19 | Diagnostic Imaging Report ---
Indication: Dyspnea Comparison: March 02, 2017 A single view chest radiograph was obtained. Findings: Bilateral ventricular noted. There is a right jugular line which is present. The tip is in the right atrium. There is no pneumothorax. Impression: Right jugular line has been placed. No pneumothorax. No change otherwise
[2017-03-04 11:42] VITALS: BP 136/68
[2017-03-04] MEDS ORDERED: MULTIVITAMIN IV SCH (12:30)
[2017-03-04] MEDS ORDERED: [UNRECOGNIZED DRUG - OTHER] IV SCH (12:30)
[2017-03-04] MEDS ORDERED: KCL IV SCH (12:30)
[2017-03-04] MEDS ORDERED: D5 IV SCH (12:30)
--- NOTE | 2017-03-04 12:39 | Pulmonology Progress Note ---
Assessment/Plan Assessment/Plan 1. Sepsis due to pneumonia. 2. Pneumonia. 3. Dementia. 4. Lactic acidosis. 5. Left humerus fracture. 6. Status post stroke. 7. Paroxysmal atrial fibrillation. 8. Seizure disorder. 9. Hyperglycemia. 10. CHF disc w Dr Callahan high risk for resp failure in future full code nper family cont abx, IV (new PICC placed) PEG feeds Lasix re CHF w interstitial edema, peripheral edema and high BNP echo agree w LTAC or SNF Subjective ROS Limited/Unobtainable: Yes Respiratory: Reports: shortness of breath Allergies: Coded Allergies: NO KNOWN ALLERGIES (Unverified Allergy, Unknown, 08/24/15) Objective Last 24 Hour Vital Signs Date Time Temp Pulse Resp B/P (MAP) Pulse Ox O2 Delivery O2 Flow Rate FiO2 03/04/17 11:42 98.1 103 20 136/68 95 Venturi Mask 10.0 03/04/17 08:10 96 10.0 40 03/04/17 08:10 Venturi Mask 10.0 40 03/04/17 08:10 75 20 Venturi Mask 10.0 40 03/04/17 08:00 98.1 101 22 146/71 96 Venturi Mask 8.0 03/04/17 04:11 78 03/04/17 04:00 98.4 76 32 137/72 95 Venturi Mask 03/04/17 00:00 98.4 95 26 155/64 98 Venturi Mask 8.0 03/03/17 23:59 83 03/03/17 20:03 83 03/03/17 20:00 97.9 97 22 139/64 Venturi Mask 8.0 03/03/17 19:05 90 20 Venturi Mask 10.0 40 03/03/17 19:05 95 10.0 40 03/03/17 19:05 Venturi Mask 10.0 40 03/03/17 16:18 97.2 83 20 141/64 96 Venturi Mask 10.0 03/03/17 16:00 70 03/03/17 14:05 69 18 123/49 99 Venturi Mask 15.0 03/03/17 14:00 70 26 131/45 100 Venturi Mask 15.0 03/03/17 13:55 71 26 126/49 99 Venturi Mask 15.0 03/03/17 13:50 72 26 128/55 99 Venturi Mask 15.0 03/03/17 12:58 82 28 15.0 Intake and Output 03/04/17 03/05/17 19:00 07:00 # Voids 2 General Appearance: cachetic, other - poorly responsive HEENT: normocephalic Respiratory/Chest: accessory muscle use, expiratory wheezing Cardiovascular: normal rate Abdomen: soft, non tender Extremities: other - 2+ edema Laboratory Tests 03/04/17 04:00: White Blood Count 20.2H, Red Blood Count 2.68L, Hemoglobin 9.0L, Hematocrit 26.2L, Mean Corpuscular Volume 98, Mean Corpuscular Hemoglobin 33.7H, Mean Corpuscular Hemoglobin Concent 34.6, Red Cell Distribution Width 13.0, Platelet Count 385, Mean Platelet Volume 5.3L, Neutrophils (%) (Auto) , Lymphocytes (%) ( Auto) , Monocytes (%) (Auto) , Eosinophils (%) (Auto) , Basophils (%) (Auto) , Differential Total Cells Counted 100, Neutrophils % (Manual) 90H, Lymphocytes % (Manual) 7L, Monocytes % (Manual) 3, Eosinophils % (Manual) 0, Basophils % ( Manual) 0, Band Neutrophils 0, Platelet Estimate Adequate, Platelet Morphology Normal, Red Blood Cell Morphology Normal, Prothrombin Time 11.1, Prothromb Time International Ratio 1.1, Sodium Level 136, Potassium Level 3.5, Chloride Level 100, Carbon Dioxide Level 28, Anion Gap 8, Blood Urea Nitrogen 5L, Creatinine 0.6, Estimat Glomerular Filtration Rate , Glucose Level 130H, Calcium Level 9.3 , Phosphorus Level 2.6, Magnesium Level 1.3L, Iron Level 17L, Total Iron Binding Capacity 91L, Percent Iron Saturation 19, Unsaturated Iron Binding 74L, Pro-B-Type Natriuretic Peptide 4207H Current Medications Medications (Trade) Dose Ordered Sig/Autumn Route PRN Reason Start Time Stop Time Status Last Admin Dose Admin Chlorhexidine Gluconate (Lauren-Hex 2%) 1 applic DAILY TOPIC 03/03/17 09:00 04/02/17 08:59 03/04/17 09:00 Heparin Sodium (Porcine) (Heparin 5000 units/ml) 5,000 units Q12H SUBQ 02/24/17 21:00 03/26/17 20:59 03/04/17 10:23 Heparin Sodium/ Sodium Chloride (Heparin 2000 units/Ns 1000ml premix) 2,000 unit ONCE PRN INJ CENTRAL LINE PLACEMENT 03/03/17 13:00 03/04/17 23:59 Ipratropium [place] (Atrovent) 500 mcg Q4H PRN HHN Shortness of Breath 03/02/17 12:45 03/07/17 12:44 03/03/17 10:17 Lidocaine HCl (Xylocaine 1% 30ml) 30 ml ONCE PRN INJ CENTRAL LINE PLACEMENT 03/03/17 13:00 03/04/17 23:59 Pantoprazole (Protonix) 40 mg EVERY 12 HOURS IVP 02/24/17 12:00 03/26/17 11:59 03/04/17 10:22 Vancomycin HCl (Vanco rx to dose) 1 ea DAILY PRN MISC PER RX PROTOCOL 02/24/17 09:00 03/26/17 08:59 Vancomycin/Sodium Chloride 250 ml @ 166.667 mls/hr Q24H IVPB 02/28/17 09:00 03/09/17 08:59 03/04/17 10:36 PAULINA ANAND Mar 04, 2017 12:39
--- NOTE | 2017-03-04 14:32 | Neurology Progress Note ---
Interim History Interim History Interim History Ms. Werner continues to be poorly responsive. She can be aroused on painful stimulation and is able to maintain arousal for a few seconds at a time. She is non-verbal. She does not follow any commands. She is breathing comfortably. She is being fed through her G-tube. There has been no significant improvement in her condition. Review of Systems Neuro Review of Systems Unable to obtain. Objective Physical Exam Last Vital Signs Date Time Temp Pulse Resp B/P (MAP) Pulse Ox O2 Delivery O2 Flow Rate FiO2 03/04/17 11:42 98.1 103 20 136/68 95 Venturi Mask 10.0 03/04/17 08:10 40 Laboratory Tests Test 03/04/17 04:00 White Blood Count 20.2 K/UL (4.8-10.8) H Red Blood Count 2.68 M/UL (4.20-5.40) L Hemoglobin 9.0 G/DL (12.0-16.0) L Hematocrit 26.2 % (37.0-47.0) L Mean Corpuscular Volume 98 FL (80-99) Mean Corpuscular Hemoglobin 33.7 PG (27.0-31.0) H Mean Corpuscular Hemoglobin Concent 34.6 G/DL (32.0-36.0) Red Cell Distribution Width 13.0 % (11.6-14.8) Platelet Count 385 K/UL (150-450) Mean Platelet Volume 5.3 FL (6.5-10.1) L Neutrophils (%) (Auto) % (45.0-75.0) Lymphocytes (%) (Auto) % (20.0-45.0) Monocytes (%) (Auto) % (1.0-10.0) Eosinophils (%) (Auto) % (0.0-3.0) Basophils (%) (Auto) % (0.0-2.0) Differential Total Cells Counted 100 Neutrophils % (Manual) 90 % (45-75) H Lymphocytes % (Manual) 7 % (20-45) L Monocytes % (Manual) 3 % (1-10) Eosinophils % (Manual) 0 % (0-3) Basophils % (Manual) 0 % (0-2) Band Neutrophils 0 % (0-8) Platelet Estimate Adequate Platelet Morphology Normal Red Blood Cell Morphology Normal Prothrombin Time 11.1 SEC (9.30-11.50) Prothromb Time International Ratio 1.1 (0.9-1.1) Sodium Level 136 mEQ/L (135-145) Potassium Level 3.5 mEQ/L (3.4-4.9) Chloride Level 100 mEQ/L (98-107) Carbon Dioxide Level 28 mEQ/L (20-30) Anion Gap 8 (5-15) Blood Urea Nitrogen 5 mg/dL (7-23) L Creatinine 0.6 mg/dL (0.5-0.9) Estimat Glomerular Filtration Rate mL/min (>60) Glucose Level 130 mg/dL (74-106) H Calcium Level 9.3 mg/dL (8.6-10.2) Phosphorus Level 2.6 mg/dL (2.5-4.8) Magnesium Level 1.3 mg/dL (1.7-2.5) L Iron Level 17 ug/dL (37-145) L Total Iron Binding Capacity 91 ug/dL (250-400) L Percent Iron Saturation 19 % (15-50) Unsaturated Iron Binding 74 ug/dL (112-346) L Pro-B-Type Natriuretic Peptide 4207 pg/mL (0-450) H Neurologic Exam Objective PHYSICAL EXAMINATION: GENERAL: She is a well-developed but lean lady, lying in bed, in no acute distress. HEAD: Normocephalic and atraumatic. EENT: Examination benign. NECK: No neck rigidity was observed. NEUROLOGIC EXAMINATION: MENTAL STATUS EXAMINATION: She was sleeping when I went to see her. She did wake up on painful stimulation. She was able to maintain arousal for a few seconds at a time. She was mute and did not follow any commands. SPEECH: Could not be tested as she was mute. LANGUAGE: She did not follow simple commands and did not say a single word. CRANIAL NERVE EXAMINATION: II: She did blink to threat. III, IV & : The external ocular movements were full. The pupils were 4 mm in diameter, equal, round, regular, and reactive sluggishly to light. V & VII: The corneal reflexes were present bilaterally, but left-sided reflex was brisker than the right. In addition, she also had flattening of the right nasolabial fold and mild right VII central facial paresis. VIII: She did respond to sounds. IX & X: The gag reflex was present, but significantly diminished. XI: The sternocleidomastoids and trapezii did function. XII: The tongue was in the midline without any fasciculations or atrophy. MOTOR SYSTEM: The tone was normal in the right upper extremity and both lower extremities. It could not be tested adequately in the left upper extremity because the left upper extremity was in an immobilizer. Examination of muscle mass revealed generalized muscle wasting. Examination of power was impossible to perform on individual muscle groups. 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 SENSORY EXAMINATION: She responded appropriately to deep pain with a moan and withdrawal. She could not cooperate for other sensory modalities. REFLEXES: 2++ on the right and 1+ on the left at the biceps, triceps, brachioradialis, and knees and 0 at both ankles. The plantar responses were extensor bilaterally. COORDINATION, STANCE & GAIT : Could not be tested. Impression/Recommendations Diagnostic Impression 1. Ms Debi Werner is an 87-year-old, right-handed, lady, who does have past history of depression, hypertension, thyroid disease, spinal stenosis , atrial fibrillation, and dementia, who recently had left humerus fracture that was treated surgically. Following surgery, she became more altered than at baseline. She was then stabilized at [facility] and then sent to a fpc. At the fpc, she apparently vomited and aspirated and as a result of that had to be readmitted to [facility] for an aspiration pneumonia and sepsis. 2. She looks about the same as yesterday. She is able to maintain arousal for as long as she is kept occupied. 3. On neurological examination, at this time, she can be aroused with painful stimuli, but is mute and unable to communicate in any manner. She also has right VII central facial paresis, brisker deep tendon reflexes on the right side , and extensor plantar responses bilaterally. 4. A prolonged electroencephalogram performed for two days at [facility] revealed an encephalopathy of moderate degree and in addition, left temporal interictal discharges, but no ictal phenomena. 5. An MRI scan of the brain performed recently at [facility] revealed atrophy , deep white matter disease, and a left centrum semiovale infarct. 6. Her laboratory data on my initial evaluation revealed a WBC count elevated to 12,500, an anemia with hemoglobin of 9.2 G. The chemistry panel revealed an elevated blood glucose at 141, elevated CK at 166, and lactic acid that was elevated to 7.4 when she came in. The Urinalysis revealed 1+ leukocyte esterase with 2-4 red blood cells and 2-4 white blood cells per high-power field , and a moderate amount of yeast with few bacteria. 7. The EEG done at [facility] revealed a moderately severe encephalopathy with a toxic metabolic component as evidenced by triphasic waves. 8. The patient's history, neurological examination, imaging studies, electroencephalogram findings, and laboratory data are most compatible with an underlying dementia with superimposed toxic encephalopathy related to her pneumonia and sepsis. 9. 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 10. Her altered mental state is related to the ongoing multifactorial encephalopathy. Recommendations 1. Continue present management including aggressive treatment of the patient's infectious process and respiratory process. 2. Watch her off anti-seizure medicines. 3. Observe closely. Michael Cross M.D., M.S.P.MICHAEL TRIPATHI Mar 04, 2017 14:32
[2017-03-04 15:55] VITALS: BP 147/75
--- NOTE | 2017-03-04 16:01 | Geriatric Progress Note ---
Assessment/Plan Problems: (1) Dementia (2) Depression, major, recurrent, severe with psychosis (3) Dysphagia due to recent cerebrovascular accident (CVA) (4) Abnormal EKG (5) Pneumonia (6) Severe sepsis (7) Respiratory distress (8) Comminuted left humeral fracture with routine healing Assessment/Plan Worsening of condition. Consider sepsis - pulmonary, line, urine, C diff. C&S ordered. Consider recurrent acidosis, although am HCO3 28. Await response to Lasix. Await C&S. Will empirical give additional Thiamine. Recheck labs. Discussed with: hospital staff Subjective Interval Events Patient with minimal responsiveness. Displaying increased work of breathing. Staff reports no fever, diarrhea, change in urine. Labs with increased leukocytosis. Discussed with Dr. Carranza who feels patient may have component of fluid overload , and initiated Lasix tx. Constitutional: Reports: chills Subjective Does not respond. Geriatric Geriatric Last 24 Hour Vital Signs Date Time Temp Pulse Resp B/P (MAP) Pulse Ox O2 Delivery O2 Flow Rate FiO2 03/04/17 11:42 98.1 103 20 136/68 95 Venturi Mask 10.0 03/04/17 08:10 96 10.0 40 03/04/17 08:10 Venturi Mask 10.0 40 03/04/17 08:10 75 20 Venturi Mask 10.0 40 03/04/17 08:00 98.1 101 22 146/71 96 Venturi Mask 8.0 03/04/17 04:11 78 03/04/17 04:00 98.4 76 32 137/72 95 Venturi Mask 03/04/17 00:00 98.4 95 26 155/64 98 Venturi Mask 8.0 03/03/17 23:59 83 03/03/17 20:03 83 03/03/17 20:00 97.9 97 22 139/64 Venturi Mask 8.0 03/03/17 19:05 90 20 Venturi Mask 10.0 40 03/03/17 19:05 95 10.0 40 03/03/17 19:05 Venturi Mask 10.0 40 03/03/17 16:18 97.2 83 20 141/64 96 Venturi Mask 10.0 03/03/17 16:00 70 Intake and Output 03/04/17 03/05/17 19:00 07:00 # Voids 2 Laboratory Tests Test 03/04/17 04:00 White Blood Count 20.2 K/UL (4.8-10.8) H Red Blood Count 2.68 M/UL (4.20-5.40) L Hemoglobin 9.0 G/DL (12.0-16.0) L Hematocrit 26.2 % (37.0-47.0) L Mean Corpuscular Volume 98 FL (80-99) Mean Corpuscular Hemoglobin 33.7 PG (27.0-31.0) H Mean Corpuscular Hemoglobin Concent 34.6 G/DL (32.0-36.0) Red Cell Distribution Width 13.0 % (11.6-14.8) Platelet Count 385 K/UL (150-450) Mean Platelet Volume 5.3 FL (6.5-10.1) L Neutrophils (%) (Auto) % (45.0-75.0) Lymphocytes (%) (Auto) % (20.0-45.0) Monocytes (%) (Auto) % (1.0-10.0) Eosinophils (%) (Auto) % (0.0-3.0) Basophils (%) (Auto) % (0.0-2.0) Differential Total Cells Counted 100 Neutrophils % (Manual) 90 % (45-75) H Lymphocytes % (Manual) 7 % (20-45) L Monocytes % (Manual) 3 % (1-10) Eosinophils % (Manual) 0 % (0-3) Basophils % (Manual) 0 % (0-2) Band Neutrophils 0 % (0-8) Platelet Estimate Adequate Platelet Morphology Normal Red Blood Cell Morphology Normal Prothrombin Time 11.1 SEC (9.30-11.50) Prothromb Time International Ratio 1.1 (0.9-1.1) Sodium Level 136 mEQ/L (135-145) Potassium Level 3.5 mEQ/L (3.4-4.9) Chloride Level 100 mEQ/L (98-107) Carbon Dioxide Level 28 mEQ/L (20-30) Anion Gap 8 (5-15) Blood Urea Nitrogen 5 mg/dL (7-23) L Creatinine 0.6 mg/dL (0.5-0.9) Estimat Glomerular Filtration Rate mL/min (>60) Glucose Level 130 mg/dL (74-106) H Calcium Level 9.3 mg/dL (8.6-10.2) Phosphorus Level 2.6 mg/dL (2.5-4.8) Magnesium Level 1.3 mg/dL (1.7-2.5) L Iron Level 17 ug/dL (37-145) L Total Iron Binding Capacity 91 ug/dL (250-400) L Percent Iron Saturation 19 % (15-50) Unsaturated Iron Binding 74 ug/dL (112-346) L Pro-B-Type Natriuretic Peptide 4207 pg/mL (0-450) H Current Medications Medications (Trade) Dose Ordered Sig/Autumn Route PRN Reason Start Time Stop Time Status Last Admin Dose Admin Chlorhexidine Gluconate (Lauren-Hex 2%) 1 applic DAILY TOPIC 03/03/17 09:00 04/02/17 08:59 03/04/17 09:00 Furosemide (Lasix) 40 mg DAILY IV 03/04/17 13:30 04/03/17 13:29 03/04/17 13:47 Heparin Sodium (Porcine) (Heparin 5000 units/ml) 5,000 units Q12H SUBQ 02/24/17 21:00 03/26/17 20:59 03/04/17 10:23 Heparin Sodium/ Sodium Chloride (Heparin 2000 units/Ns 1000ml premix) 2,000 unit ONCE PRN INJ CENTRAL LINE PLACEMENT 03/03/17 13:00 03/04/17 23:59 Ipratropium [place] (Atrovent) 500 mcg Q4H PRN HHN Shortness of Breath 03/02/17 12:45 03/07/17 12:44 03/03/17 10:17 Lidocaine HCl (Xylocaine 1% 30ml) 30 ml ONCE PRN INJ CENTRAL LINE PLACEMENT 03/03/17 13:00 03/04/17 23:59 Pantoprazole (Protonix) 40 mg EVERY 12 HOURS IVP 02/24/17 12:00 03/26/17 11:59 03/04/17 10:22 Piperacillin Sod/ Tazobactam Sod 3.375 gm/Dextrose 110 ml @ 27.5 mls/hr EVERY 8 HOURS IV 03/04/17 22:00 03/11/17 21:59 Vancomycin HCl (Vanco rx to dose) 1 ea DAILY PRN MISC PER RX PROTOCOL 02/24/17 09:00 03/26/17 08:59 Vancomycin/Sodium Chloride 250 ml @ 166.667 mls/hr Q24H IVPB 02/28/17 09:00 03/09/17 08:59 03/04/17 10:36 Height (Feet): 5 Height (Inches): 5.00 Weight (Pounds): 100 General Appearance: other - somewhat deeper respirations. Head: normocephalic, atraumatic Eyes: bilateral anicteric Neck: no mass Respiratory: rhonchi, wheezing Cardiovascular: regular rate, rhythm Gastrointestinal: normal bowel sounds, non tender, soft, no mass, no organomegaly, non-distended Musculoskeletal: no calf tenderness Edema: no edema noted Generalized Neurologic: no new focality GEETA WOOD Mar 04, 2017 16:01
[2017-03-04] MEDS: Thiamine 100mg tab GT SCH (16:45)
--- NOTE | 2017-03-04 19:10 | General Progress Note ---
Assessment/Plan Assessment/Plan Assessment - anemia - stable, patient not candidate for GI w/u - Resp failure - improving - aspiration risk - s/p PEG - reactive airways - improved - Leukocytosis concerning - OBS Recommendations - continue TF at low rate today - advance TF tomorrow - IVF - pulmonary toilet Subjective Allergies: Coded Allergies: NO KNOWN ALLERGIES (Unverified Allergy, Unknown, 08/24/15) Subjective Non interactive on face mask O2 calm d/w DTR at bedside TF started Objective Last 24 Hour Vital Signs Date Time Temp Pulse Resp B/P (MAP) Pulse Ox O2 Delivery O2 Flow Rate FiO2 03/04/17 16:00 84 03/04/17 15:55 98.1 97 22 147/75 96 Venturi Mask 10.0 03/04/17 12:00 103 03/04/17 11:42 98.1 103 20 136/68 95 Venturi Mask 10.0 03/04/17 08:10 96 10.0 40 03/04/17 08:10 Venturi Mask 10.0 40 03/04/17 08:10 75 20 Venturi Mask 10.0 40 03/04/17 08:00 102 03/04/17 08:00 98.1 101 22 146/71 96 Venturi Mask 8.0 03/04/17 04:11 78 03/04/17 04:00 98.4 76 32 137/72 95 Venturi Mask 03/04/17 00:00 98.4 95 26 155/64 98 Venturi Mask 8.0 03/03/17 23:59 83 03/03/17 20:03 83 03/03/17 20:00 97.9 97 22 139/64 Venturi Mask 8.0 Intake and Output 03/04/17 03/05/17 19:00 07:00 # Voids 3 Laboratory Tests 03/04/17 04:00: White Blood Count 20.2H, Red Blood Count 2.68L, Hemoglobin 9.0L, Hematocrit 26.2L, Mean Corpuscular Volume 98, Mean Corpuscular Hemoglobin 33.7H, Mean Corpuscular Hemoglobin Concent 34.6, Red Cell Distribution Width 13.0, Platelet Count 385, Mean Platelet Volume 5.3L, Neutrophils (%) (Auto) , Lymphocytes (%) ( Auto) , Monocytes (%) (Auto) , Eosinophils (%) (Auto) , Basophils (%) (Auto) , Differential Total Cells Counted 100, Neutrophils % (Manual) 90H, Lymphocytes % (Manual) 7L, Monocytes % (Manual) 3, Eosinophils % (Manual) 0, Basophils % ( Manual) 0, Band Neutrophils 0, Platelet Estimate Adequate, Platelet Morphology Normal, Red Blood Cell Morphology Normal, Prothrombin Time 11.1, Prothromb Time International Ratio 1.1, Sodium Level 136, Potassium Level 3.5, Chloride Level 100, Carbon Dioxide Level 28, Anion Gap 8, Blood Urea Nitrogen 5L, Creatinine 0.6, Estimat Glomerular Filtration Rate , Glucose Level 130H, Calcium Level 9.3 , Phosphorus Level 2.6, Magnesium Level 1.3L, Iron Level 17L, Total Iron Binding Capacity 91L, Percent Iron Saturation 19, Unsaturated Iron Binding 74L, Pro-B-Type Natriuretic Peptide 4207H Height (Feet): 5 Height (Inches): 5.00 Weight (Pounds): 100 Objective Thin WW NCAT supple b/l ronchi RR abd soft ND, (+) GT no edema (+) (L)UE immobilizer ETTA ZURITA Mar 04, 2017 19:10
[2017-03-04 20:00] VITALS: BP 143/66
[2017-03-04] MEDS: Piperacillin/Tazobactam 3.375 GM in D5W 110 ML IV SCH (21:45)
[2017-03-05] VITALS: BP 122/58
[2017-03-05] MEDS: Ipratropium 0.02% Inh Soln 2.5ml UD HHN PRN ×3 (00:09→20:03)
[2017-03-05 04:00] VITALS: BP 140/73
[2017-03-05] MEDS: Piperacillin/Tazobactam 3.375 GM in D5W 110 ML IV SCH ×3 (06:13→21:22)
[2017-03-05 06:28] LABS: MEAN CORPUSCULAR HEMOGLOBIN 33.8 PG (27.0-31.0); MEAN CORPUSCULAR HGB CONC 34.4 G/DL (32.0-36.0); MEAN CORPUSCULAR VOLUME 98 FL (80-99); MEAN PLATELET VOLUME 5.3 FL (6.5-10.1); PLATELET COUNT 411 K/UL (150-450); RED BLOOD COUNT 2.61 M/UL (4.20-5.40); RED CELL DISTRIBUTION WIDTH 12.8 % (11.6-14.8); WHITE BLOOD COUNT 20.8 K/UL (4.8-10.8)
[2017-03-05 07:19] LABS: ALANINE AMINOTRANSFERASE 8 U/L (3-33); ALBUMIN/GLOBULIN RATIO 0.7 (1.0-2.7); ANION GAP 9 (5-15); ASPARTATE AMINO TRANSFERASE 15 U/L (5-40); CALCIUM 9.5 mg/dL (8.6-10.2); CARBON DIOXIDE 31 mEQ/L (20-30); CHLORIDE 101 mEQ/L (98-107); CREATININE 0.8 mg/dL (0.5-0.9); HEMOLYSIS 7; SODIUM 141 mEQ/L (135-145)
[2017-03-05 08:00] VITALS: BP 128/57
[2017-03-05 08:31] LABS: BAND NEUTROPHILS % (MANUAL) 0 % (0-8); BASOPHILS % (MANUAL) 0 % (0-2); EOSINOPHILS % (MANUAL) 0 % (0-3); LYMPHOCYTES % (MANUAL) 3 % (20-45); NEUTROPHILS % (MANUAL) 96 % (45-75); PLATELET ESTIMATE ADEQUATE; TOTAL CELLS COUNTED 100
[2017-03-05 08:32] LABS: HYPOCHROMASIA 1+; PLATELET MORPHOLOGY NORMAL
[2017-03-05] MEDS: Dyna-Hex 2% Top Sol 2oz TOPIC SCH (09:00)
[2017-03-05] MEDS: Pantoprazole Inj IVP SCH ×2 (09:46→21:22)
[2017-03-05] MEDS: Thiamine 100mg tab GT SCH (09:46)
[2017-03-05] MEDS: Vancomycin 750mg/NS 250ml IVPB SCH (09:47)
[2017-03-05] MEDS: Heparin 5000 units/ml inj SUBQ SCH ×2 (09:48→21:21)
--- NOTE | 2017-03-05 11:47 | Diagnostic Imaging Report ---
Indication: Dyspnea Comparison: 03/04/2017 A single view chest radiograph was obtained. Findings: Patchy infiltrates demonstrated bilaterally. The infiltrate in the left upper lobe appear slightly nodular on today's examination. Followup is recommended. Right jugular line is stable. Heart size is stable. Small bilateral pleural effusions may be present. Impression: Bilateral infiltrates. No significant change. Followup is recommended.
[2017-03-05 12:00] VITALS: BP 134/64
--- NOTE | 2017-03-05 13:50 | Neurology Progress Note ---
Interim History Interim History Interim History Ms. Werner continues to be poorly responsive. She can be aroused on painful stimulation and is able to maintain arousal for a few seconds at a time. She is non-verbal. She does not follow any commands. She is breathing comfortably. She is being fed through her G-tube. There has been no significant improvement in her condition. Review of Systems Neuro Review of Systems Unable to obtain. Objective Physical Exam Last Vital Signs Date Time Temp Pulse Resp B/P (MAP) Pulse Ox O2 Delivery O2 Flow Rate FiO2 03/05/17 08:16 92 Venturi Mask 10.0 45 03/05/17 08:15 90 28 03/05/17 08:00 97.5 128/57 Laboratory Tests Test 03/05/17 05:30 03/05/17 08:30 White Blood Count 20.8 K/UL (4.8-10.8) H Red Blood Count 2.61 M/UL (4.20-5.40) L Hemoglobin 8.8 G/DL (12.0-16.0) L Hematocrit 25.7 % (37.0-47.0) L Mean Corpuscular Volume 98 FL (80-99) Mean Corpuscular Hemoglobin 33.8 PG (27.0-31.0) H Mean Corpuscular Hemoglobin Concent 34.4 G/DL (32.0-36.0) Red Cell Distribution Width 12.8 % (11.6-14.8) Platelet Count 411 K/UL (150-450) Mean Platelet Volume 5.3 FL (6.5-10.1) L Neutrophils (%) (Auto) % (45.0-75.0) Lymphocytes (%) (Auto) % (20.0-45.0) Monocytes (%) (Auto) % (1.0-10.0) Eosinophils (%) (Auto) % (0.0-3.0) Basophils (%) (Auto) % (0.0-2.0) Differential Total Cells Counted 100 Neutrophils % (Manual) 96 % (45-75) H Lymphocytes % (Manual) 3 % (20-45) L Monocytes % (Manual) 1 % (1-10) Eosinophils % (Manual) 0 % (0-3) Basophils % (Manual) 0 % (0-2) Band Neutrophils 0 % (0-8) Platelet Estimate Adequate Platelet Morphology Normal Hypochromasia 1+ Sodium Level 141 mEQ/L (135-145) Potassium Level 3.0 mEQ/L (3.4-4.9) L Chloride Level 101 mEQ/L (98-107) Carbon Dioxide Level 31 mEQ/L (20-30) H Anion Gap 9 (5-15) Blood Urea Nitrogen 9 mg/dL (7-23) Creatinine 0.8 mg/dL (0.5-0.9) Estimat Glomerular Filtration Rate mL/min (>60) Glucose Level 138 mg/dL (74-106) H Calcium Level 9.5 mg/dL (8.6-10.2) Total Bilirubin 0.3 mg/dL (0.0-1.2) Aspartate Amino Transf (AST/SGOT) 15 U/L (5-40) Alanine Aminotransferase (ALT/SGPT) 8 U/L (3-33) Alkaline Phosphatase 89 U/L (35-104) Pro-B-Type Natriuretic Peptide 2491 pg/mL (0-450) H Total Protein 5.0 g/dL (6.6-8.7) L Albumin 2.1 g/dL (3.5-5.2) L Globulin 2.9 g/dL Albumin/Globulin Ratio 0.7 (1.0-2.7) L Vancomycin Level Trough 8.2 ug/mL (5.0-12.0) Neurologic Exam Objective PHYSICAL EXAMINATION: GENERAL: She is a well-developed but lean lady, lying in bed, in no acute distress. HEAD: Normocephalic and atraumatic. EENT: Examination benign. NECK: No neck rigidity was observed. NEUROLOGIC EXAMINATION: MENTAL STATUS EXAMINATION: She was sleeping when I went to see her. She did wake up on painful stimulation. She was able to maintain arousal for a few seconds at a time. She was mute and did not follow any commands. SPEECH: Could not be tested as she was mute. LANGUAGE: She did not follow simple commands and did not say a single word. CRANIAL NERVE EXAMINATION: II: She did blink to threat. III, IV & : The external ocular movements were full. The pupils were 4 mm in diameter, equal, round, regular, and reactive sluggishly to light. V & VII: The corneal reflexes were present bilaterally, but left-sided reflex was brisker than the right. In addition, she also had flattening of the right nasolabial fold and mild right VII central facial paresis. VIII: She did respond to sounds. IX & X: The gag reflex was present, but significantly diminished. XI: The sternocleidomastoids and trapezii did function. XII: The tongue was in the midline without any fasciculations or atrophy. MOTOR SYSTEM: The tone was normal in the right upper extremity and both lower extremities. It could not be tested adequately in the left upper extremity because the left upper extremity was in an immobilizer. Examination of muscle mass revealed generalized muscle wasting. Examination of power was impossible to perform on individual muscle groups. 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 SENSORY EXAMINATION: She responded appropriately to deep pain with a moan and withdrawal. She could not cooperate for other sensory modalities. REFLEXES: 2++ on the right and 1+ on the left at the biceps, triceps, brachioradialis, and knees and 0 at both ankles. The plantar responses were extensor bilaterally. COORDINATION, STANCE & GAIT : Could not be tested. Impression/Recommendations Diagnostic Impression 1. Ms Debi Werner is an 87-year-old, right-handed, lady, who does have past history of depression, hypertension, thyroid disease, spinal stenosis , atrial fibrillation, and dementia, who recently had left humerus fracture that was treated surgically. Following surgery, she became more altered than at baseline. She was then stabilized at [facility] and then sent to a [facility]. At the [facility], she apparently vomited and aspirated and as a result of that had to be readmitted to [facility] for an aspiration pneumonia and sepsis. 2. She looks about the same as yesterday. She is able to maintain arousal for as long as she is kept occupied. 3. On neurological examination, at this time, she can be aroused with painful stimuli, but is mute and unable to communicate in any manner. She also has right VII central facial paresis, brisker deep tendon reflexes on the right side , and extensor plantar responses bilaterally. 4. A prolonged electroencephalogram performed for two days at [facility] revealed an encephalopathy of moderate degree and in addition, left temporal interictal discharges, but no ictal phenomena. 5. An MRI scan of the brain performed recently at [facility] revealed atrophy , deep white matter disease, and a left centrum semiovale infarct. 6. Her laboratory data on my initial evaluation revealed a WBC count elevated to 12,500, an anemia with hemoglobin of 9.2 G. The chemistry panel revealed an elevated blood glucose at 141, elevated CK at 166, and lactic acid that was elevated to 7.4 when she came in. The Urinalysis revealed 1+ leukocyte esterase with 2-4 red blood cells and 2-4 white blood cells per high-power field , and a moderate amount of yeast with few bacteria. 7. The EEG done at [facility] revealed a moderately severe encephalopathy with a toxic metabolic component as evidenced by triphasic waves. 8. The patient's history, neurological examination, imaging studies, electroencephalogram findings, and laboratory data are most compatible with an underlying dementia with superimposed toxic encephalopathy related to her pneumonia and sepsis. 9. 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 10. Her altered mental state is related to the ongoing multifactorial encephalopathy. Recommendations 1. Continue present management including aggressive treatment of the patient's infectious process and respiratory process. 2. Watch her off anti-seizure medicines. 3. Observe closely. Michael Cross M.D., M.S.P.H. MICHAEL CROSS Mar 05, 2017 13:50
--- NOTE | 2017-03-05 15:51 | Pulmonology Progress Note ---
Assessment/Plan Assessment/Plan 1. Sepsis due to pneumonia. 2. Pneumonia. 3. Dementia. 4. Lactic acidosis. 5. Left humerus fracture. 6. Status post stroke. 7. Paroxysmal atrial fibrillation. 8. Seizure disorder. 9. Hyperglycemia. 10. CHF disc w Dr Callahan high risk for resp failure in future full code per family cont abx, IV GT feeds continue Lasix re CHF, edema; seems better after dose yesterday CXR edema vs pneumonia (WBC 20k) echo pending Subjective ROS Limited/Unobtainable: Yes Allergies: Coded Allergies: NO KNOWN ALLERGIES (Unverified Allergy, Unknown, 08/24/15) Objective Last 24 Hour Vital Signs Date Time Temp Pulse Resp B/P (MAP) Pulse Ox O2 Delivery O2 Flow Rate FiO2 03/05/17 12:00 97.3 90 22 134/64 90 Venturi Mask 55 03/05/17 08:16 92 Venturi Mask 10.0 45 03/05/17 08:16 Venturi Mask 10.0 45 03/05/17 08:15 90 28 Venturi Mask 10.0 45 03/05/17 08:00 97.5 88 24 128/57 97 Venturi Mask 55 03/05/17 08:00 80 03/05/17 04:00 105 03/05/17 04:00 98.1 100 28 140/73 Venturi Mask 03/05/17 00:12 95 20 95 Venturi Mask 10.0 45 03/05/17 00:12 45 03/05/17 00:12 92 20 93 Venturi Mask 10.0 45 03/05/17 00:00 85 03/05/17 00:00 98.2 86 36 122/58 92 Venturi Mask 10.0 03/04/17 20:00 99.5 86 24 143/66 94 Venturi Mask 8.0 03/04/17 20:00 95 03/04/17 19:36 94 Venturi Mask 10.0 45 03/04/17 19:36 Venturi Mask 10.0 45 03/04/17 19:35 90 20 Venturi Mask 10.0 45 03/04/17 16:00 84 03/04/17 15:55 98.1 97 22 147/75 96 Venturi Mask 10.0 General Appearance: no acute distress, other - mild tachypnea HEENT: atraumatic Respiratory/Chest: crackles/rales Cardiovascular: normal rate Extremities: other - 2+ edema Laboratory Tests 03/05/17 05:30: White Blood Count 20.8H, Red Blood Count 2.61L, Hemoglobin 8.8L, Hematocrit 25.7L, Mean Corpuscular Volume 98, Mean Corpuscular Hemoglobin 33.8H, Mean Corpuscular Hemoglobin Concent 34.4, Red Cell Distribution Width 12.8, Platelet Count 411, Mean Platelet Volume 5.3L, Neutrophils (%) (Auto) , Lymphocytes (%) ( Auto) , Monocytes (%) (Auto) , Eosinophils (%) (Auto) , Basophils (%) (Auto) , Differential Total Cells Counted 100, Neutrophils % (Manual) 96H, Lymphocytes % (Manual) 3L, Monocytes % (Manual) 1, Eosinophils % (Manual) 0, Basophils % ( Manual) 0, Band Neutrophils 0, Platelet Estimate Adequate, Platelet Morphology Normal, Hypochromasia 1+, Sodium Level 141, Potassium Level 3.0L, Chloride Level 101, Carbon Dioxide Level 31H, Anion Gap 9, Blood Urea Nitrogen 9, Creatinine 0.8, Estimat Glomerular Filtration Rate , Glucose Level 138H, Calcium Level 9.5, Total Bilirubin 0.3, Aspartate Amino Transf (AST/SGOT) 15, Alanine Aminotransferase (ALT/SGPT) 8, Alkaline Phosphatase 89, Pro-B-Type Natriuretic Peptide 2491H, Total Protein 5.0L, Albumin 2.1L, Globulin 2.9, Albumin/Globulin Ratio 0.7L 03/05/17 08:30: Vancomycin Level Trough 8.2 Current Medications Medications (Trade) Dose Ordered Sig/Autumn Route PRN Reason Start Time Stop Time Status Last Admin Dose Admin Chlorhexidine Gluconate (Lauren-Hex 2%) 1 applic DAILY TOPIC 03/03/17 09:00 04/02/17 08:59 03/05/17 09:00 Furosemide (Lasix) 40 mg DAILY IV 03/04/17 13:30 04/03/17 13:29 03/05/17 09:46 Heparin Sodium (Porcine) (Heparin 5000 units/ml) 5,000 units Q12H SUBQ 02/24/17 21:00 03/26/17 20:59 03/05/17 09:48 Ipratropium Sullivan (Atrovent) 500 mcg Q4H PRN HHN Shortness of Breath 10/2/17 12:45 03/07/17 12:44 03/05/17 00:09 Pantoprazole (Protonix) 40 mg EVERY 12 HOURS IVP 02/24/17 12:00 03/26/17 11:59 03/05/17 09:46 Piperacillin Sod/ Tazobactam Sod 3.375 gm/Dextrose 110 ml @ 27.5 mls/hr EVERY 8 HOURS IV 03/04/17 22:00 03/11/17 21:59 03/05/17 14:00 Thiamine HCl (Vitamin B1) 100 mg DAILY GT 03/04/17 16:45 04/03/17 16:44 03/05/17 09:46 Vancomycin HCl (Vanco rx to dose) 1 ea DAILY PRN MISC PER RX PROTOCOL 02/24/17 09:00 03/26/17 08:59 Vancomycin HCl 1 gm/Dextrose 275 ml @ 183.708 mls/hr Q24H IVPB 03/06/17 04:00 03/11/17 03:59 PAULINA ANAND Mar 05, 2017 15:51
[2017-03-05 16:00] VITALS: BP 116/53
--- NOTE | 2017-03-05 17:14 | Geriatric Progress Note ---
Assessment/Plan Problems: (1) Dementia (2) Depression, major, recurrent, severe with psychosis (3) Dysphagia due to recent cerebrovascular accident (CVA) (4) Abnormal EKG (5) Pneumonia (6) Severe sepsis (7) Respiratory distress (8) Comminuted left humeral fracture with routine healing (9) Leukocytosis Assessment/Plan Clinically improved. Still with significant leukocytosis. Unclear source. C&S pending. Need to tx appropriately before d/c. Hypokalemia, hypomagnesemia, supplement per PEG. Recheck labs. Reviewed in detail with dtr at bedside including potential d/c plans. Continue present therapy. Discussed with: family, hospital staff Subjective Interval Events Patient responds with groan when limbs moved. Does not open eyes, no other overt responses. No fever, no diarrhea reported by staff. Somewhat less congestion than yesterday noted. Low Mg, K noted. Subjective Does not respond. Geriatric Geriatric Last 24 Hour Vital Signs Date Time Temp Pulse Resp B/P (MAP) Pulse Ox O2 Delivery O2 Flow Rate FiO2 03/05/17 16:31 83 24 98 Venturi Mask 14.0 55 03/05/17 16:21 82 24 93 Venturi Mask 14.0 55 03/05/17 16:00 97.0 91 22 116/53 91 Venturi Mask 55 03/05/17 12:00 97 03/05/17 12:00 97.3 90 22 134/64 90 Venturi Mask 55 03/05/17 08:16 92 Venturi Mask 10.0 45 03/05/17 08:16 Venturi Mask 10.0 45 03/05/17 08:15 90 28 Venturi Mask 10.0 45 03/05/17 08:00 97.5 88 24 128/57 97 Venturi Mask 55 03/05/17 08:00 80 03/05/17 04:00 105 03/05/17 04:00 98.1 100 28 140/73 Venturi Mask 03/05/17 00:12 95 20 95 Venturi Mask 10.0 45 03/05/17 00:12 45 03/05/17 00:12 92 20 93 Venturi Mask 10.0 45 03/05/17 00:00 85 03/05/17 00:00 98.2 86 36 122/58 92 Venturi Mask 10.0 03/04/17 20:00 99.5 86 24 143/66 94 Venturi Mask 8.0 03/04/17 20:00 95 03/04/17 19:36 94 Venturi Mask 10.0 45 03/04/17 19:36 Venturi Mask 10.0 45 03/04/17 19:35 90 20 Venturi Mask 10.0 45 Laboratory Tests Test 03/05/17 05:30 03/05/17 08:30 White Blood Count 20.8 K/UL (4.8-10.8) H Red Blood Count 2.61 M/UL (4.20-5.40) L Hemoglobin 8.8 G/DL (12.0-16.0) L Hematocrit 25.7 % (37.0-47.0) L Mean Corpuscular Volume 98 FL (80-99) Mean Corpuscular Hemoglobin 33.8 PG (27.0-31.0) H Mean Corpuscular Hemoglobin Concent 34.4 G/DL (32.0-36.0) Red Cell Distribution Width 12.8 % (11.6-14.8) Platelet Count 411 K/UL (150-450) Mean Platelet Volume 5.3 FL (6.5-10.1) L Neutrophils (%) (Auto) % (45.0-75.0) Lymphocytes (%) (Auto) % (20.0-45.0) Monocytes (%) (Auto) % (1.0-10.0) Eosinophils (%) (Auto) % (0.0-3.0) Basophils (%) (Auto) % (0.0-2.0) Differential Total Cells Counted 100 Neutrophils % (Manual) 96 % (45-75) H Lymphocytes % (Manual) 3 % (20-45) L Monocytes % (Manual) 1 % (1-10) Eosinophils % (Manual) 0 % (0-3) Basophils % (Manual) 0 % (0-2) Band Neutrophils 0 % (0-8) Platelet Estimate Adequate Platelet Morphology Normal Hypochromasia 1+ Sodium Level 141 mEQ/L (135-145) Potassium Level 3.0 mEQ/L (3.4-4.9) L Chloride Level 101 mEQ/L (98-107) Carbon Dioxide Level 31 mEQ/L (20-30) H Anion Gap 9 (5-15) Blood Urea Nitrogen 9 mg/dL (7-23) Creatinine 0.8 mg/dL (0.5-0.9) Estimat Glomerular Filtration Rate mL/min (>60) Glucose Level 138 mg/dL (74-106) H Calcium Level 9.5 mg/dL (8.6-10.2) Total Bilirubin 0.3 mg/dL (0.0-1.2) Aspartate Amino Transf (AST/SGOT) 15 U/L (5-40) Alanine Aminotransferase (ALT/SGPT) 8 U/L (3-33) Alkaline Phosphatase 89 U/L (35-104) Pro-B-Type Natriuretic Peptide 2491 pg/mL (0-450) H Total Protein 5.0 g/dL (6.6-8.7) L Albumin 2.1 g/dL (3.5-5.2) L Globulin 2.9 g/dL Albumin/Globulin Ratio 0.7 (1.0-2.7) L Vancomycin Level Trough 8.2 ug/mL (5.0-12.0) Current Medications Medications (Trade) Dose Ordered Sig/Autumn Route PRN Reason Start Time Stop Time Status Last Admin Dose Admin Chlorhexidine Gluconate (Lauren-Hex 2%) 1 applic DAILY TOPIC 03/03/17 09:00 04/02/17 08:59 03/05/17 09:00 Furosemide (Lasix) 40 mg DAILY IV 03/04/17 13:30 04/03/17 13:29 03/05/17 09:46 Heparin Sodium (Porcine) (Heparin 5000 units/ml) 5,000 units Q12H SUBQ 02/24/17 21:00 03/26/17 20:59 03/05/17 09:48 Ipratropium Warnock (Atrovent) 500 mcg Q4H PRN HHN Shortness of Breath 03/02/17 12:45 03/07/17 12:44 03/05/17 16:21 Pantoprazole (Protonix) 40 mg EVERY 12 HOURS IVP 02/24/17 12:00 03/26/17 11:59 03/05/17 09:46 Piperacillin Sod/ Tazobactam Sod 3.375 gm/Dextrose 110 ml @ 27.5 mls/hr EVERY 8 HOURS IV 03/04/17 22:00 03/11/17 21:59 03/05/17 14:00 Thiamine HCl (Vitamin B1) 100 mg DAILY GT 03/04/17 16:45 04/03/17 16:44 03/05/17 09:46 Vancomycin HCl (Vanco rx to dose) 1 ea DAILY PRN MISC PER RX PROTOCOL 02/24/17 09:00 03/26/17 08:59 Vancomycin HCl 1 gm/Dextrose 275 ml @ 183.708 mls/hr Q24H IVPB 03/06/17 04:00 03/11/17 03:59 Height (Feet): 5 Height (Inches): 5.00 Weight (Pounds): 100 General Appearance: no apparent distress Head: normocephalic, atraumatic Eyes: bilateral anicteric Neck: no mass Respiratory: other - less less congestion, rales, rhonchi. Cardiovascular: regular rate, rhythm Gastrointestinal: normal bowel sounds, non tender, soft, no mass, no organomegaly, non-distended Musculoskeletal: no calf tenderness Edema: no edema noted Generalized Neurologic: no new focality GEETA WOOD Mar 05, 2017 17:14
[2017-03-05] MEDS: KCl 10% 20 mEq/15ml liquid PEG SCH (18:00)
[2017-03-05] MEDS: Magnesium Oxide 400mg tab PEG SCH (18:00)
[2017-03-05 20:00] VITALS: BP 155/65
--- NOTE | 2017-03-05 21:09 | General Progress Note ---
Assessment/Plan Assessment/Plan Assessment - anemia - stable, patient not candidate for GI w/u - Resp failure - improving - aspiration risk - s/p PEG - reactive airways - improved - Leukocytosis concerning - OBS Recommendations - advance TF - monitor residuals - elevate HOB - IVF - pulmonary toilet Subjective Allergies: Coded Allergies: NO KNOWN ALLERGIES (Unverified Allergy, Unknown, 08/24/15) Subjective Non interactive on face mask O2 calm TF advanced to 50/hr Objective Last 24 Hour Vital Signs Date Time Temp Pulse Resp B/P (MAP) Pulse Ox O2 Delivery O2 Flow Rate FiO2 03/05/17 20:15 108 26 96 Venturi Mask 14.0 55 03/05/17 20:07 55 03/05/17 20:06 102 26 93 Venturi Mask 14.0 55 03/05/17 19:44 Venturi Mask 14.0 55 03/05/17 19:44 102 26 Venturi Mask 14.0 55 03/05/17 19:44 93 Venturi Mask 14.0 55 03/05/17 16:31 83 24 98 Venturi Mask 14.0 55 03/05/17 16:21 82 24 93 Venturi Mask 14.0 55 03/05/17 16:00 86 03/05/17 16:00 97.0 91 22 116/53 91 Venturi Mask 55 03/05/17 12:00 97 03/05/17 12:00 97.3 90 22 134/64 90 Venturi Mask 55 03/05/17 08:16 92 Venturi Mask 10.0 45 03/05/17 08:16 Venturi Mask 10.0 45 03/05/17 08:15 90 28 Venturi Mask 10.0 45 03/05/17 08:00 97.5 88 24 128/57 97 Venturi Mask 55 03/05/17 08:00 80 03/05/17 04:00 105 03/05/17 04:00 98.1 100 28 140/73 Venturi Mask 03/05/17 00:12 95 20 95 Venturi Mask 10.0 45 03/05/17 00:12 45 03/05/17 00:12 92 20 93 Venturi Mask 10.0 45 03/05/17 00:00 85 03/05/17 00:00 98.2 86 36 122/58 92 Venturi Mask 10.0 Intake and Output 03/05/17 03/06/17 19:00 07:00 Intake Total 490 ml Balance 490 ml Intake Free Water 100 ml Tube Feeding 30 ml Other 360 ml # Voids 2 # Bowel Movements 2 Laboratory Tests 03/05/17 05:30: White Blood Count 20.8H, Red Blood Count 2.61L, Hemoglobin 8.8L, Hematocrit 25.7L, Mean Corpuscular Volume 98, Mean Corpuscular Hemoglobin 33.8H, Mean Corpuscular Hemoglobin Concent 34.4, Red Cell Distribution Width 12.8, Platelet Count 411, Mean Platelet Volume 5.3L, Neutrophils (%) (Auto) , Lymphocytes (%) ( Auto) , Monocytes (%) (Auto) , Eosinophils (%) (Auto) , Basophils (%) (Auto) , Differential Total Cells Counted 100, Neutrophils % (Manual) 96H, Lymphocytes % (Manual) 3L, Monocytes % (Manual) 1, Eosinophils % (Manual) 0, Basophils % ( Manual) 0, Band Neutrophils 0, Platelet Estimate Adequate, Platelet Morphology Normal, Hypochromasia 1+, Sodium Level 141, Potassium Level 3.0L, Chloride Level 101, Carbon Dioxide Level 31H, Anion Gap 9, Blood Urea Nitrogen 9, Creatinine 0.8, Estimat Glomerular Filtration Rate , Glucose Level 138H, Calcium Level 9.5, Total Bilirubin 0.3, Aspartate Amino Transf (AST/SGOT) 15, Alanine Aminotransferase (ALT/SGPT) 8, Alkaline Phosphatase 89, Pro-B-Type Natriuretic Peptide 2491H, Total Protein 5.0L, Albumin 2.1L, Globulin 2.9, Albumin/Globulin Ratio 0.7L 03/05/17 08:30: Vancomycin Level Trough 8.2 Height (Feet): 5 Height (Inches): 5.00 Weight (Pounds): 100 Objective Thin WW NCAT supple b/l ronchi RR abd soft ND, (+) GT no edema (+) (L)UE immobilizer ETTA ZURITA Mar 05, 2017 21:09
[2017-03-06] VITALS: BP 100/48
[2017-03-06 00:09] LABS: APPEARANCE,URINE SLIGHTLY CLOUDY; KETONES,URINE NEGATIVE (NEGATIVE); LEUKOCYTE ESTERASE ,URINE 1+ (NEGATIVE); NITRITE,URINE NEGATIVE (NEGATIVE); PH,URINE 5 (4.5-8.0); PROTEIN,URINE 1+ (NEGATIVE); UROBILINOGEN,URINE NORMAL MG/DL (0.0-1.0)
[2017-03-06 00:26] LABS: SQUAMOUS EPITHELIAL CELL,UR FEW /LPF (NONE/OCC); WBC,URINE 15-20 /HPF (0 - 2)
[2017-03-06 00:27] LABS: AMORPHOUS SEDIMENT,UR MODERATE /LPF; BACTERIA,URINE FEW /HPF
[2017-03-06 04:00] VITALS: BP 104/48
[2017-03-06] MEDS: Vancomycin 1gm/D5W 275ml IVPB SCH ×2 (04:17)
[2017-03-06] MEDS: Piperacillin/Tazobactam 3.375 GM in D5W 110 ML IV SCH ×3 (06:11→21:28)
[2017-03-06 07:14] LABS: MEAN CORPUSCULAR HEMOGLOBIN 33.3 PG (27.0-31.0); MEAN CORPUSCULAR HGB CONC 33.7 G/DL (32.0-36.0); MEAN CORPUSCULAR VOLUME 99 FL (80-99); MEAN PLATELET VOLUME 5.3 FL (6.5-10.1); PLATELET COUNT 341 K/UL (150-450); RED BLOOD COUNT 2.29 M/UL (4.20-5.40); RED CELL DISTRIBUTION WIDTH 13.4 % (11.6-14.8); WHITE BLOOD COUNT 16.4 K/UL (4.8-10.8)
[2017-03-06 07:35] LABS: ANION GAP 7 (5-15); CARBON DIOXIDE 34 mEQ/L (20-30); CHLORIDE 99 mEQ/L (98-107); CREATININE 0.8 mg/dL (0.5-0.9); HEMOLYSIS 0; MAGNESIUM 1.3 mg/dL (1.7-2.5); SODIUM 140 mEQ/L (135-145)
[2017-03-06 08:00] VITALS: BP 110/50
[2017-03-06 08:18] LABS: CALCIUM 8.5 mg/dL (8.6-10.2)
[2017-03-06 08:21] LABS: BAND NEUTROPHILS % (MANUAL) 0 % (0-8); BASOPHILS % (MANUAL) 0 % (0-2); EOSINOPHILS % (MANUAL) 1 % (0-3); LYMPHOCYTES % (MANUAL) 12 % (20-45); NEUTROPHILS % (MANUAL) 84 % (45-75); PLATELET ESTIMATE ADEQUATE; PLATELET MORPHOLOGY NORMAL; TOTAL CELLS COUNTED 100
[2017-03-06 08:22] LABS: HYPOCHROMASIA 1+
[2017-03-06] MEDS: Dyna-Hex 2% Top Sol 2oz TOPIC SCH (09:30)
[2017-03-06] MEDS: Pantoprazole Inj IVP SCH ×2 (09:31→21:22)
[2017-03-06] MEDS: Thiamine 100mg tab GT SCH (09:31)
[2017-03-06] MEDS: Magnesium Oxide 400mg tab PEG SCH ×2 (09:31→17:25)
[2017-03-06] MEDS: KCl 10% 20 mEq/15ml liquid PEG SCH ×2 (09:31→17:25)
[2017-03-06] MEDS: Heparin 5000 units/ml inj SUBQ SCH ×2 (09:33→21:24)
[2017-03-06 12:00] VITALS: BP 98/49
--- NOTE | 2017-03-06 13:14 | Pulmonology Progress Note ---
Assessment/Plan Assessment/Plan 1. Sepsis due to pneumonia. + BC GPC clusters 2. Pneumonia. 3. Dementia. 4. Lactic acidosis. 5. Left humerus fracture. 6. Status post stroke. 7. Paroxysmal atrial fibrillation. 8. Seizure disorder. 9. Hyperglycemia. 10. CHF + BC as above, possibly from pneumonia high risk for resp failure full code per family cont abx, IV GT feeds continue Lasix CXR edema vs pneumonia (WBC better) Subjective ROS Limited/Unobtainable: Yes Allergies: Coded Allergies: NO KNOWN ALLERGIES (Unverified Allergy, Unknown, 08/24/15) Objective Last 24 Hour Vital Signs Date Time Temp Pulse Resp B/P (MAP) Pulse Ox O2 Delivery O2 Flow Rate FiO2 03/06/17 12:00 97.5 80 21 98/49 96 Venturi Mask 03/06/17 11:20 82 18 Venturi Mask 14.0 55 03/06/17 11:20 92 Venturi Mask 14.0 55 03/06/17 11:20 Venturi Mask 14.0 55 03/06/17 08:00 81 03/06/17 08:00 97.5 77 20 110/50 100 03/06/17 04:00 100 03/06/17 04:00 98.1 80 28 104/48 100 Venturi Mask 55 03/06/17 00:00 101 03/06/17 00:00 97.0 79 24 100/48 99 Venturi Mask 50 03/06/17 00:00 97.0 79 24 100/48 99 Venturi Mask 14.0 55 03/05/17 20:15 108 26 96 Venturi Mask 14.0 55 03/05/17 20:07 55 03/05/17 20:06 102 26 93 Venturi Mask 14.0 55 03/05/17 20:00 81 03/05/17 20:00 97.9 111 24 155/65 95 Nasal Cannula 50 03/05/17 19:44 Venturi Mask 14.0 55 03/05/17 19:44 102 26 Venturi Mask 14.0 55 03/05/17 19:44 93 Venturi Mask 14.0 55 03/05/17 16:31 83 24 98 Venturi Mask 14.0 55 03/05/17 16:21 82 24 93 Venturi Mask 14.0 55 03/05/17 16:00 86 03/05/17 16:00 97.0 91 22 116/53 91 Venturi Mask 55 General Appearance: no acute distress HEENT: atraumatic Respiratory/Chest: decreased breath sounds, crackles/rales Cardiovascular: normal rate Microbiology Date/Time Source Procedure Growth Status 03/04/17 20:20 Blood Blood Culture - Preliminary Resulted 03/04/17 19:10 Blood Blood Culture - Preliminary NO GROWTH AFTER 24 HOURS Resulted 03/05/17 10:45 Sputum Gram Stain - Final Resulted 03/05/17 10:45 Sputum Sputum Culture - Preliminary Resulted 03/05/17 15:20 Stool Clostridium difficile Toxin Assay - Final Complete 03/04/17 18:50 Straight Cath Urine Culture - Preliminary NO GROWTH Resulted Laboratory Tests 03/05/17 23:30: Urine Color Pale yellow, Urine Appearance Slightly cloudy, Urine pH 5, Urine Specific [place] 1.015, Urine Protein 1+H, Urine Glucose (UA) Negative, Urine Ketones Negative, Urine Occult Blood 2+H, Urine Nitrite Negative, Urine Bilirubin Negative, Urine Urobilinogen Normal, Urine Leukocyte Esterase 1+H, Urine RBC 5-10H, Urine WBC 15-20H, Urine Squamous Epithelial Cells Few, Urine Amorphous Sediment ModerateH, Urine Bacteria Few 03/06/17 06:30: White Blood Count 16.4H, Red Blood Count 2.29L, Hemoglobin 7.6L, Hematocrit 22.7L, Mean Corpuscular Volume 99, Mean Corpuscular Hemoglobin 33.3H, Mean Corpuscular Hemoglobin Concent 33.7, Red Cell Distribution Width 13.4, Platelet Count 341, Mean Platelet Volume 5.3L, Neutrophils (%) (Auto) , Lymphocytes (%) ( Auto) , Monocytes (%) (Auto) , Eosinophils (%) (Auto) , Basophils (%) (Auto) , Differential Total Cells Counted 100, Neutrophils % (Manual) 84H, Lymphocytes % (Manual) 12L, Monocytes % (Manual) 3, Eosinophils % (Manual) 1, Basophils % ( Manual) 0, Band Neutrophils 0, Platelet Estimate Adequate, Platelet Morphology Normal, Hypochromasia 1+, Sodium Level 140, Potassium Level 3.0L, Chloride Level 99, Carbon Dioxide Level 34H, Anion Gap 7, Blood Urea Nitrogen 13, Creatinine 0.8, Estimat Glomerular Filtration Rate , Glucose Level 139H, Calcium Level 8.5L, Magnesium Level 1.3L Current Medications Medications (Trade) Dose Ordered Sig/Autumn Route PRN Reason Start Time Stop Time Status Last Admin Dose Admin Chlorhexidine Gluconate (Lauren-Hex 2%) 1 applic DAILY TOPIC 03/03/17 09:00 04/02/17 08:59 03/06/17 09:30 Furosemide (Lasix) 40 mg DAILY IV 03/04/17 13:30 04/03/17 13:29 03/06/17 09:31 Heparin Sodium (Porcine) (Heparin 5000 units/ml) 5,000 units Q12H SUBQ 02/24/17 21:00 03/26/17 20:59 03/06/17 09:33 Ipratropium [place] (Atrovent) 500 mcg Q4H PRN HHN Shortness of Breath 03/02/17 12:45 03/07/17 12:44 03/05/17 20:03 Magnesium Oxide (Mag-Ox 400mg) 400 mg BID PEG 03/05/17 18:00 04/04/17 17:59 03/06/17 09:31 Pantoprazole (Protonix) 40 mg EVERY 12 HOURS IVP 02/24/17 12:00 03/26/17 11:59 03/06/17 09:31 Piperacillin Sod/ Tazobactam Sod 3.375 gm/Dextrose 110 ml @ 27.5 mls/hr EVERY 8 HOURS IV 03/04/17 22:00 03/11/17 21:59 03/06/17 06:11 Potassium Chloride (KCl 10% 20 mEq oral solution) 20 meq BID PEG 03/05/17 18:00 04/04/17 17:59 03/06/17 09:31 Thiamine HCl (Vitamin B1) 100 mg DAILY GT 03/04/17 16:45 04/03/17 16:44 03/06/17 09:31 Vancomycin HCl (Vanco rx to dose) 1 ea DAILY PRN MISC PER RX PROTOCOL 02/24/17 09:00 03/26/17 08:59 Vancomycin HCl 1 gm/Dextrose 275 ml @ 183.708 mls/hr Q24H IVPB 03/06/17 04:00 03/11/17 03:59 03/06/17 04:17 PAULINA ANAND Mar 06, 2017 13:14
--- NOTE | 2017-03-06 14:50 | Geriatric Progress Note ---
Assessment/Plan Problems: (1) Dementia (2) Depression, major, recurrent, severe with psychosis (3) Dysphagia due to recent cerebrovascular accident (CVA) (4) Abnormal EKG (5) Pneumonia (6) Severe sepsis (7) Respiratory distress (8) Comminuted left humeral fracture with routine healing (9) Leukocytosis (10) Bacteremia due to Gram-positive bacteria Assessment/Plan Gm + bacteremia: ? contaminant, ? chest or urine source, ? central line. Note peripheral line C&S -, only central line +. Adequate coverage at present. Redraw central line. ? Moraxella in sputum. Urine with pyuria, C&S pending. Wbc improved. Respiratory condition improved with diuresis. OK for d/c to SNF once infectious status clarified and adequately covered. Discussed with: hospital staff Subjective Interval Events Patient more alert today. Opens eyes to auditory stimuli, exhibits somewhat directed gaze. Blinks to threat both eyes. No verbal response. On Osmolite 1.2 @ 50. Receiving Lasix. Stool loose, but C diff -. Sputum Gm stain with Gm + cocci, some Gm - diplo. Blood C&S peripheral NGTD. Blood C&S central line 1/2: Gm + cocci in groups. Urine with pyuria. Wbc down to 16. Mg, K still low. Subjective Does not respond. Geriatric Geriatric Last 24 Hour Vital Signs Date Time Temp Pulse Resp B/P (MAP) Pulse Ox O2 Delivery O2 Flow Rate FiO2 03/06/17 12:00 97.5 80 21 98/49 96 Venturi Mask 03/06/17 11:20 82 18 Venturi Mask 14.0 55 03/06/17 11:20 92 Venturi Mask 14.0 55 03/06/17 11:20 Venturi Mask 14.0 55 03/06/17 08:00 81 03/06/17 08:00 97.5 77 20 110/50 100 03/06/17 04:00 100 03/06/17 04:00 98.1 80 28 104/48 100 Venturi Mask 55 03/06/17 00:00 101 03/06/17 00:00 97.0 79 24 100/48 99 Venturi Mask 50 03/06/17 00:00 97.0 79 24 100/48 99 Venturi Mask 14.0 55 03/05/17 20:15 108 26 96 Venturi Mask 14.0 55 03/05/17 20:07 55 03/05/17 20:06 102 26 93 Venturi Mask 14.0 55 03/05/17 20:00 81 03/05/17 20:00 97.9 111 24 155/65 95 Nasal Cannula 50 03/05/17 19:44 Venturi Mask 14.0 55 03/05/17 19:44 102 26 Venturi Mask 14.0 55 03/05/17 19:44 93 Venturi Mask 14.0 55 03/05/17 16:31 83 24 98 Venturi Mask 14.0 55 03/05/17 16:21 82 24 93 Venturi Mask 14.0 55 03/05/17 16:00 86 03/05/17 16:00 97.0 91 22 116/53 91 Venturi Mask 55 Laboratory Tests Test 03/05/17 23:30 03/06/17 06:30 Urine Color Pale yellow Urine Appearance Slightly cloudy Urine pH 5 (4.5-8.0) Urine Specific [place] 1.015 (1.005-1.035) Urine Protein 1+ (NEGATIVE) H Urine Glucose (UA) Negative (NEGATIVE) Urine Ketones Negative (NEGATIVE) Urine Occult Blood 2+ (NEGATIVE) H Urine Nitrite Negative (NEGATIVE) Urine Bilirubin Negative (NEGATIVE) Urine Urobilinogen Normal MG/DL (0.0-1.0) Urine Leukocyte Esterase 1+ (NEGATIVE) H Urine RBC 5-10 /HPF (0 - 2) H Urine WBC 15-20 /HPF (0 - 2) H Urine Squamous Epithelial Cells Few /LPF (NONE/OCC) Urine Amorphous Sediment Moderate /LPF (NONE) H Urine Bacteria Few /HPF (NONE) White Blood Count 16.4 K/UL (4.8-10.8) H Red Blood Count 2.29 M/UL (4.20-5.40) L Hemoglobin 7.6 G/DL (12.0-16.0) L Hematocrit 22.7 % (37.0-47.0) L Mean Corpuscular Volume 99 FL (80-99) Mean Corpuscular Hemoglobin 33.3 PG (27.0-31.0) H Mean Corpuscular Hemoglobin Concent 33.7 G/DL (32.0-36.0) Red Cell Distribution Width 13.4 % (11.6-14.8) Platelet Count 341 K/UL (150-450) Mean Platelet Volume 5.3 FL (6.5-10.1) L Neutrophils (%) (Auto) % (45.0-75.0) Lymphocytes (%) (Auto) % (20.0-45.0) Monocytes (%) (Auto) % (1.0-10.0) Eosinophils (%) (Auto) % (0.0-3.0) Basophils (%) (Auto) % (0.0-2.0) Differential Total Cells Counted 100 Neutrophils % (Manual) 84 % (45-75) H Lymphocytes % (Manual) 12 % (20-45) L Monocytes % (Manual) 3 % (1-10) Eosinophils % (Manual) 1 % (0-3) Basophils % (Manual) 0 % (0-2) Band Neutrophils 0 % (0-8) Platelet Estimate Adequate Platelet Morphology Normal Hypochromasia 1+ Sodium Level 140 mEQ/L (135-145) Potassium Level 3.0 mEQ/L (3.4-4.9) L Chloride Level 99 mEQ/L (98-107) Carbon Dioxide Level 34 mEQ/L (20-30) H Anion Gap 7 (5-15) Blood Urea Nitrogen 13 mg/dL (7-23) Creatinine 0.8 mg/dL (0.5-0.9) Estimat Glomerular Filtration Rate mL/min (>60) Glucose Level 139 mg/dL (74-106) H Calcium Level 8.5 mg/dL (8.6-10.2) L Magnesium Level 1.3 mg/dL (1.7-2.5) L Current Medications Medications (Trade) Dose Ordered Sig/[place] Route PRN Reason Start Time Stop Time Status Last Admin Dose Admin Chlorhexidine Gluconate (Lauren-Hex 2%) 1 applic DAILY TOPIC 03/03/17 09:00 04/02/17 08:59 03/06/17 09:30 Furosemide (Lasix) 40 mg DAILY IV 03/04/17 13:30 04/03/17 13:29 03/06/17 09:31 Heparin Sodium (Porcine) (Heparin 5000 units/ml) 5,000 units Q12H SUBQ 02/24/17 21:00 03/26/17 20:59 03/06/17 09:33 Ipratropium [place] (Atrovent) 500 mcg Q4H PRN HHN Shortness of Breath 03/02/17 12:45 03/07/17 12:44 03/05/17 20:03 Magnesium Oxide (Mag-Ox 400mg) 400 mg BID PEG 03/05/17 18:00 04/04/17 17:59 03/06/17 09:31 Pantoprazole (Protonix) 40 mg EVERY 12 HOURS IVP 02/24/17 12:00 03/26/17 11:59 03/06/17 09:31 Piperacillin Sod/ Tazobactam Sod 3.375 gm/Dextrose 110 ml @ 27.5 mls/hr EVERY 8 HOURS IV 03/04/17 22:00 03/11/17 21:59 03/06/17 06:11 Potassium Chloride (KCl 10% 20 mEq oral solution) 20 meq BID PEG 03/05/17 18:00 04/04/17 17:59 03/06/17 09:31 Thiamine HCl (Vitamin B1) 100 mg DAILY GT 03/04/17 16:45 04/03/17 16:44 03/06/17 09:31 Vancomycin HCl (Vanco rx to dose) 1 ea DAILY PRN MISC PER RX PROTOCOL 02/24/17 09:00 03/26/17 08:59 Vancomycin HCl 1 gm/Dextrose 275 ml @ 183.708 mls/hr Q24H IVPB 03/06/17 04:00 03/11/17 03:59 03/06/17 04:17 Height (Feet): 5 Height (Inches): 5.00 Weight (Pounds): 100 General Appearance: other - arousable, no verbal response, does not follow instructions. Head: normocephalic, atraumatic Eyes: bilateral anicteric Neck: no mass Respiratory: rales, rhonchi, other - somewhat less congested. Cardiovascular: regular rate, rhythm Gastrointestinal: normal bowel sounds, non tender, soft, no mass, no organomegaly, non-distended Edema: no edema noted Generalized Neurologic: no new focality GEETA WOOD Mar 06, 2017 14:50
[2017-03-06 16:00] VITALS: BP 123/59
--- NOTE | 2017-03-06 18:00 | Neurology Progress Note ---
Interim History Interim History Interim History Ms. Werner continues to be poorly responsive. She can be aroused on painful stimulation and is able to maintain arousal for a few seconds at a time. She is non-verbal. She does not follow any commands. She is breathing comfortably. She is being fed through her G-tube. There has been no significant improvement in her condition. Review of Systems Neuro Review of Systems Unable to obtain. Objective Physical Exam Last Vital Signs Date Time Temp Pulse Resp B/P (MAP) Pulse Ox O2 Delivery O2 Flow Rate FiO2 03/06/17 16:00 97.9 75 20 123/59 98 Venturi Mask 03/06/17 11:20 14.0 55 Laboratory Tests Test 03/05/17 23:30 03/06/17 06:30 Urine Color Pale yellow Urine Appearance Slightly cloudy Urine pH 5 (4.5-8.0) Urine Specific [place] 1.015 (1.005-1.035) Urine Protein 1+ (NEGATIVE) H Urine Glucose (UA) Negative (NEGATIVE) Urine Ketones Negative (NEGATIVE) Urine Occult Blood 2+ (NEGATIVE) H Urine Nitrite Negative (NEGATIVE) Urine Bilirubin Negative (NEGATIVE) Urine Urobilinogen Normal MG/DL (0.0-1.0) Urine Leukocyte Esterase 1+ (NEGATIVE) H Urine RBC 5-10 /HPF (0 - 2) H Urine WBC 15-20 /HPF (0 - 2) H Urine Squamous Epithelial Cells Few /LPF (NONE/OCC) Urine Amorphous Sediment Moderate /LPF (NONE) H Urine Bacteria Few /HPF (NONE) White Blood Count 16.4 K/UL (4.8-10.8) H Red Blood Count 2.29 M/UL (4.20-5.40) L Hemoglobin 7.6 G/DL (12.0-16.0) L Hematocrit 22.7 % (37.0-47.0) L Mean Corpuscular Volume 99 FL (80-99) Mean Corpuscular Hemoglobin 33.3 PG (27.0-31.0) H Mean Corpuscular Hemoglobin Concent 33.7 G/DL (32.0-36.0) Red Cell Distribution Width 13.4 % (11.6-14.8) Platelet Count 341 K/UL (150-450) Mean Platelet Volume 5.3 FL (6.5-10.1) L Neutrophils (%) (Auto) % (45.0-75.0) Lymphocytes (%) (Auto) % (20.0-45.0) Monocytes (%) (Auto) % (1.0-10.0) Eosinophils (%) (Auto) % (0.0-3.0) Basophils (%) (Auto) % (0.0-2.0) Differential Total Cells Counted 100 Neutrophils % (Manual) 84 % (45-75) H Lymphocytes % (Manual) 12 % (20-45) L Monocytes % (Manual) 3 % (1-10) Eosinophils % (Manual) 1 % (0-3) Basophils % (Manual) 0 % (0-2) Band Neutrophils 0 % (0-8) Platelet Estimate Adequate Platelet Morphology Normal Hypochromasia 1+ Sodium Level 140 mEQ/L (135-145) Potassium Level 3.0 mEQ/L (3.4-4.9) L Chloride Level 99 mEQ/L (98-107) Carbon Dioxide Level 34 mEQ/L (20-30) H Anion Gap 7 (5-15) Blood Urea Nitrogen 13 mg/dL (7-23) Creatinine 0.8 mg/dL (0.5-0.9) Estimat Glomerular Filtration Rate mL/min (>60) Glucose Level 139 mg/dL (74-106) H Calcium Level 8.5 mg/dL (8.6-10.2) L Magnesium Level 1.3 mg/dL (1.7-2.5) L Neurologic Exam Objective PHYSICAL EXAMINATION: GENERAL: She is a well-developed but lean lady, lying in bed, in no acute distress. HEAD: Normocephalic and atraumatic. EENT: Examination benign. NECK: No neck rigidity was observed. NEUROLOGIC EXAMINATION: MENTAL STATUS EXAMINATION: She was sleeping when I went to see her. She did wake up on painful stimulation. She was able to maintain arousal for a few seconds at a time. She was mute and did not follow any commands. SPEECH: Could not be tested as she was mute. LANGUAGE: She did not follow simple commands and did not say a single word. CRANIAL NERVE EXAMINATION: II: She did blink to threat. III, IV & : The external ocular movements were full. The pupils were 4 mm in diameter, equal, round, regular, and reactive sluggishly to light. V & VII: The corneal reflexes were present bilaterally, but left-sided reflex was brisker than the right. In addition, she also had flattening of the right nasolabial fold and mild right VII central facial paresis. VIII: She did respond to sounds. IX & X: The gag reflex was present, but significantly diminished. XI: The sternocleidomastoids and trapezii did function. XII: The tongue was in the midline without any fasciculations or atrophy. MOTOR SYSTEM: The tone was normal in the right upper extremity and both lower extremities. It could not be tested adequately in the left upper extremity because the left upper extremity was in an immobilizer. Examination of muscle mass revealed generalized muscle wasting. Examination of power was impossible to perform on individual muscle groups. 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 SENSORY EXAMINATION: She responded appropriately to deep pain with a moan and withdrawal. She could not cooperate for other sensory modalities. REFLEXES: 2++ on the right and 1+ on the left at the biceps, triceps, brachioradialis, and knees and 0 at both ankles. The plantar responses were extensor bilaterally. COORDINATION, STANCE & GAIT : Could not be tested. Impression/Recommendations Diagnostic Impression 1. Ms Debi Werner is an 87-year-old, right-handed, lady, who does have past history of depression, hypertension, thyroid disease, spinal stenosis , atrial fibrillation, and dementia, who recently had left humerus fracture that was treated surgically. Following surgery, she became more altered than at baseline. She was then stabilized at [facility] and then sent to a half-way. At the half-way, she apparently vomited and aspirated and as a result of that had to be readmitted to [facility] for an aspiration pneumonia and sepsis. 2. She looks about the same as yesterday. She is able to maintain arousal for as long as she is kept occupied. 3. On neurological examination, at this time, she can be aroused with painful stimuli, but is mute and unable to communicate in any manner. She also has right VII central facial paresis, brisker deep tendon reflexes on the right side , and extensor plantar responses bilaterally. 4. A prolonged electroencephalogram performed for two days at [facility] revealed an encephalopathy of moderate degree and in addition, left temporal interictal discharges, but no ictal phenomena. 5. An MRI scan of the brain performed recently at [facility] revealed atrophy , deep white matter disease, and a left centrum semiovale infarct. 6. Her laboratory data on my initial evaluation revealed a WBC count elevated to 12,500, an anemia with hemoglobin of 9.2 G. The chemistry panel revealed an elevated blood glucose at 141, elevated CK at 166, and lactic acid that was elevated to 7.4 when she came in. The Urinalysis revealed 1+ leukocyte esterase with 2-4 red blood cells and 2-4 white blood cells per high-power field , and a moderate amount of yeast with few bacteria. 7. [place] [facility] a moderately severe encephalopathy with a toxic metabolic component as evidenced by triphasic waves. 8. The patient's history, neurological examination, imaging studies, electroencephalogram findings, and laboratory data are most compatible with an underlying dementia with superimposed toxic encephalopathy related to her pneumonia and sepsis. 9. 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 10. Her altered mental state is related to the ongoing multifactorial encephalopathy. Recommendations 1. Continue present management including aggressive treatment of the patient's infectious process and respiratory process. 2. Watch her off anti-seizure medicines. 3. Observe closely. Michael Cross M.D., M.S.P.H. MICHAEL CROSS Mar 06, 2017 18:00
--- NOTE | 2017-03-06 18:59 | General Progress Note ---
Assessment/Plan Assessment/Plan Assessment - anemia - stable, patient not candidate for GI w/u - Resp failure - improving - aspiration risk - s/p PEG - reactive airways - improved - Leukocytosis concerning - OBS - abnormal lytes Recommendations - continue TF - replace lytes - monitor residuals - elevate HOB - IVF - pulmonary toilet - I will return Thursday to see pt Subjective Allergies: Coded Allergies: NO KNOWN ALLERGIES (Unverified Allergy, Unknown, 08/24/15) Subjective Non interactive tolerating TF labs noted Objective Last 24 Hour Vital Signs Date Time Temp Pulse Resp B/P (MAP) Pulse Ox O2 Delivery O2 Flow Rate FiO2 03/06/17 16:00 97.9 75 20 123/59 98 Venturi Mask 03/06/17 16:00 80 03/06/17 12:00 97.5 80 21 98/49 96 Venturi Mask 03/06/17 12:00 83 03/06/17 11:20 82 18 Venturi Mask 14.0 55 03/06/17 11:20 92 Venturi Mask 14.0 55 03/06/17 11:20 Venturi Mask 14.0 55 03/06/17 08:00 81 03/06/17 08:00 97.5 77 20 110/50 100 03/06/17 04:00 100 03/06/17 04:00 98.1 80 28 104/48 100 Venturi Mask 55 03/06/17 00:00 101 03/06/17 00:00 97.0 79 24 100/48 99 Venturi Mask 50 03/06/17 00:00 97.0 79 24 100/48 99 Venturi Mask 14.0 55 03/05/17 20:15 108 26 96 Venturi Mask 14.0 55 03/05/17 20:07 55 03/05/17 20:06 102 26 93 Venturi Mask 14.0 55 03/05/17 20:00 81 03/05/17 20:00 97.9 111 24 155/65 95 Nasal Cannula 50 03/05/17 19:44 Venturi Mask 14.0 55 03/05/17 19:44 102 26 Venturi Mask 14.0 55 03/05/17 19:44 93 Venturi Mask 14.0 55 Intake and Output 03/06/17 03/07/17 19:00 07:00 Intake Total 455.0 ml Balance 455.0 ml IV Total 55.0 ml Other 400 ml Laboratory Tests 03/05/17 23:30: Urine Color Pale yellow, Urine Appearance Slightly cloudy, Urine pH 5, Urine Specific [place] 1.015, Urine Protein 1+H, Urine Glucose (UA) Negative, Urine Ketones Negative, Urine Occult Blood 2+H, Urine Nitrite Negative, Urine Bilirubin Negative, Urine Urobilinogen Normal, Urine Leukocyte Esterase 1+H, Urine RBC 5-10H, Urine WBC 15-20H, Urine Squamous Epithelial Cells Few, Urine Amorphous Sediment ModerateH, Urine Bacteria Few 03/06/17 06:30: White Blood Count 16.4H, Red Blood Count 2.29L, Hemoglobin 7.6L, Hematocrit 22.7L, Mean Corpuscular Volume 99, Mean Corpuscular Hemoglobin 33.3H, Mean Corpuscular Hemoglobin Concent 33.7, Red Cell Distribution Width 13.4, Platelet Count 341, Mean Platelet Volume 5.3L, Neutrophils (%) (Auto) , Lymphocytes (%) ( Auto) , Monocytes (%) (Auto) , Eosinophils (%) (Auto) , Basophils (%) (Auto) , Differential Total Cells Counted 100, Neutrophils % (Manual) 84H, Lymphocytes % (Manual) 12L, Monocytes % (Manual) 3, Eosinophils % (Manual) 1, Basophils % ( Manual) 0, Band Neutrophils 0, Platelet Estimate Adequate, Platelet Morphology Normal, Hypochromasia 1+, Sodium Level 140, Potassium Level 3.0L, Chloride Level 99, Carbon Dioxide Level 34H, Anion Gap 7, Blood Urea Nitrogen 13, Creatinine 0.8, Estimat Glomerular Filtration Rate , Glucose Level 139H, Calcium Level 8.5L, Magnesium Level 1.3L Height (Feet): 5 Height (Inches): 5.00 Weight (Pounds): 100 Objective Thin WW NCAT supple b/l ronchi RR abd soft ND, (+) GT no edema (+) (L)UE immobilizer ETTA ZURITA Mar 06, 2017 18:59
[2017-03-06 20:00] VITALS: BP 105/58
[2017-03-07 00:55] VITALS: BP 125/54
[2017-03-07] MEDS: Vancomycin 1gm/D5W 275ml IVPB SCH ×2 (03:56)
[2017-03-07 04:00] VITALS: BP 124/54
[2017-03-07] MEDS: Piperacillin/Tazobactam 3.375 GM in D5W 110 ML IV SCH ×3 (06:11→21:06)
[2017-03-07 07:14] LABS: MEAN CORPUSCULAR HEMOGLOBIN 33.4 PG (27.0-31.0); MEAN CORPUSCULAR HGB CONC 33.7 G/DL (32.0-36.0); MEAN CORPUSCULAR VOLUME 99 FL (80-99); MEAN PLATELET VOLUME 5.6 FL (6.5-10.1); PLATELET COUNT 351 K/UL (150-450); RED BLOOD COUNT 2.27 M/UL (4.20-5.40); RED CELL DISTRIBUTION WIDTH 12.8 % (11.6-14.8); WHITE BLOOD COUNT 16.3 K/UL (4.8-10.8)
[2017-03-07 07:56] LABS: ALANINE AMINOTRANSFERASE 9 U/L (3-33); ALBUMIN/GLOBULIN RATIO 0.5 (1.0-2.7); ANION GAP 7 (5-15); ASPARTATE AMINO TRANSFERASE 17 U/L (5-40); CALCIUM 8.8 mg/dL (8.6-10.2); CARBON DIOXIDE 37 mEQ/L (20-30); CHLORIDE 99 mEQ/L (98-107); HEMOLYSIS 0; MAGNESIUM 1.8 mg/dL (1.7-2.5); POTASSIUM 3.3 mEQ/L (3.4-4.9); SODIUM 143 mEQ/L (135-145); TOTAL PROTEIN 5.8 g/dL (6.6-8.7)
[2017-03-07 08:00] VITALS: BP 112/56
[2017-03-07] MEDS: Dyna-Hex 2% Top Sol 2oz TOPIC SCH (08:43)
[2017-03-07] MEDS: KCl 10% 20 mEq/15ml liquid PEG SCH ×2 (08:43→17:32)
[2017-03-07] MEDS: Pantoprazole Inj IVP SCH ×2 (08:44→21:05)
[2017-03-07] MEDS: Magnesium Oxide 400mg tab PEG SCH (08:44)
[2017-03-07] MEDS: Thiamine 100mg tab GT SCH (08:44)
[2017-03-07] MEDS: Heparin 5000 units/ml inj SUBQ SCH ×2 (08:46→21:00)
--- NOTE | 2017-03-07 10:24 | Geriatric Progress Note ---
Assessment/Plan Problems: (1) Dementia (2) Depression, major, recurrent, severe with psychosis (3) Dysphagia due to recent cerebrovascular accident (CVA) (4) Abnormal EKG (5) Pneumonia (6) Severe sepsis (7) Respiratory distress (8) Comminuted left humeral fracture with routine healing (9) Leukocytosis (10) Bacteremia due to Gram-positive bacteria Assessment/Plan Persistent moderate leukocytosis - ? Central line, ? pulmonary. Continue present tx pending C&S. If Central line + again, may need to d/c and replace access. Anemia, no stool OB obtained as yet, but Hct stable over 24 hrs. Likely associated with acute illness. Will transfuse if family consents. Apparently tolerating TF. When infectious status clarified d/c to SNF with 24hr R.T. Rahat term prognosis remains very guarded. Discussed with: hospital staff Subjective Interval Events Patient opens eyes to auditory stimuli, but does not direct gaze. Respiratory status remains unchanged. Wbc about the same. Repeat central line CS& pending to evaluate for persistent line associated bacteremia vs. superficial contamination. Original central line C&S staph species. Urine NGTD. Sputum growing S aureus, sparse growth of C albicans. Hct confirmed as 22.5%. Transfusion indicated, but family observant not reachable. Given lack of acute drop vs. yesterday, stable VS, no need for emergent transfusion. Delay till family can consent. Subjective Does not respond. Geriatric Geriatric Last 24 Hour Vital Signs Date Time Temp Pulse Resp B/P (MAP) Pulse Ox O2 Delivery O2 Flow Rate FiO2 03/07/17 08:00 98.4 80 20 112/56 97 Venturi Mask 55 03/07/17 08:00 78 03/07/17 04:00 98.1 77 24 124/54 99 Venturi Mask 15.0 55 03/07/17 04:00 82 03/07/17 00:55 97.9 69 24 125/54 99 Venturi Mask 15.0 03/07/17 00:00 76 03/06/17 20:35 85 26 Venturi Mask 14.0 55 03/06/17 20:35 95 Venturi Mask 14.0 55 03/06/17 20:35 Venturi Mask 14.0 55 03/06/17 20:00 97.8 88 28 105/58 90 Simple Mask 13.0 03/06/17 20:00 79 10/6/17 16:00 97.9 75 20 123/59 98 Venturi Mask 03/06/17 16:00 80 03/06/17 12:00 97.5 80 21 98/49 96 Venturi Mask 03/06/17 12:00 83 03/06/17 11:20 82 18 Venturi Mask 14.0 55 03/06/17 11:20 92 Venturi Mask 14.0 55 03/06/17 11:20 Venturi Mask 14.0 55 Laboratory Tests Test 03/07/17 06:00 White Blood Count 16.3 K/UL (4.8-10.8) H Red Blood Count 2.27 M/UL (4.20-5.40) L Hemoglobin 7.6 G/DL (12.0-16.0) L Hematocrit 22.5 % (37.0-47.0) L Mean Corpuscular Volume 99 FL (80-99) Mean Corpuscular Hemoglobin 33.4 PG (27.0-31.0) H Mean Corpuscular Hemoglobin Concent 33.7 G/DL (32.0-36.0) Red Cell Distribution Width 12.8 % (11.6-14.8) Platelet Count 351 K/UL (150-450) Mean Platelet Volume 5.6 FL (6.5-10.1) L Neutrophils (%) (Auto) % (45.0-75.0) Lymphocytes (%) (Auto) % (20.0-45.0) Monocytes (%) (Auto) % (1.0-10.0) Eosinophils (%) (Auto) % (0.0-3.0) Basophils (%) (Auto) % (0.0-2.0) Neutrophils % (Manual) Pending Lymphocytes % (Manual) Pending Platelet Estimate Pending Platelet Morphology Pending Sodium Level 143 mEQ/L (135-145) Potassium Level 3.3 mEQ/L (3.4-4.9) L Chloride Level 99 mEQ/L (98-107) Carbon Dioxide Level 37 mEQ/L (20-30) H Anion Gap 7 (5-15) Blood Urea Nitrogen 21 mg/dL (7-23) Creatinine 1.0 mg/dL (0.5-0.9) H Estimat Glomerular Filtration Rate mL/min (>60) Glucose Level 134 mg/dL (74-106) H Calcium Level 8.8 mg/dL (8.6-10.2) Magnesium Level 1.8 mg/dL (1.7-2.5) Total Bilirubin 0.3 mg/dL (0.0-1.2) Aspartate Amino Transf (AST/SGOT) 17 U/L (5-40) Alanine Aminotransferase (ALT/SGPT) 9 U/L (3-33) Alkaline Phosphatase 71 U/L (35-104) Total Protein 5.8 g/dL (6.6-8.7) L Albumin 2.1 g/dL (3.5-5.2) L Globulin 3.7 g/dL Albumin/Globulin Ratio 0.5 (1.0-2.7) L Current Medications Medications (Trade) Dose Ordered Sig/Autumn Route PRN Reason Start Time Stop Time Status Last Admin Dose Admin Chlorhexidine Gluconate (Lauren-Hex 2%) 1 applic DAILY TOPIC 03/03/17 09:00 04/02/17 08:59 03/07/17 08:43 Furosemide (Lasix) 40 mg DAILY IV 03/04/17 13:30 04/03/17 13:29 03/07/17 08:44 Heparin Sodium (Porcine) (Heparin 5000 units/ml) 5,000 units Q12H SUBQ 02/24/17 21:00 03/26/17 20:59 03/07/17 08:[address] (Atrovent) 500 mcg Q4H PRN HHN Shortness of Breath 03/02/17 12:45 03/07/17 12:44 03/05/17 20:03 Magnesium Oxide (Mag-Ox 400mg) 400 mg BID PEG 03/05/17 18:00 04/04/17 17:59 03/07/17 08:44 Pantoprazole (Protonix) 40 mg EVERY 12 HOURS IVP 02/24/17 12:00 03/26/17 11:59 03/07/17 08:44 Piperacillin Sod/ Tazobactam Sod 3.375 gm/Dextrose 110 ml @ 27.5 mls/hr EVERY 8 HOURS IV 03/04/17 22:00 03/11/17 21:59 03/07/17 06:11 Potassium Chloride (KCl 10% 20 mEq oral solution) 20 meq BID PEG 03/05/17 18:00 04/04/17 17:59 03/07/17 08:43 Thiamine HCl (Vitamin B1) 100 mg DAILY GT 03/04/17 16:45 04/03/17 16:44 03/07/17 08:44 Vancomycin HCl (Vanco rx to dose) 1 ea DAILY PRN MISC PER RX PROTOCOL 02/24/17 09:00 03/26/17 08:59 Vancomycin HCl 1 gm/Dextrose 275 ml @ 183.708 mls/hr Q24H IVPB 03/06/17 04:00 03/11/17 03:59 03/07/17 03:56 Height (Feet): 5 Height (Inches): 5.00 Weight (Pounds): 100 General Appearance: lethargic - but arouses, without verbal response or directed gaze. Head: normocephalic, atraumatic Eyes: bilateral anicteric Neck: no mass Respiratory: rales - midway up back, rhonchi Cardiovascular: regular rate, rhythm Gastrointestinal: normal bowel sounds, non tender, soft, no mass, no organomegaly, non-distended Musculoskeletal: no calf tenderness Edema: 3+ Arm (R), no edema noted Generalized Neurologic: no new focality GEETA WOOD Mar 07, 2017 10:24
[2017-03-07 10:32] LABS: BAND NEUTROPHILS % (MANUAL) 0 % (0-8); BASOPHILS % (MANUAL) 0 % (0-2); EOSINOPHILS % (MANUAL) 1 % (0-3); HYPOCHROMASIA 1+; LYMPHOCYTES % (MANUAL) 6 % (20-45); NEUTROPHILS % (MANUAL) 86 % (45-75); PLATELET ESTIMATE ADEQUATE; PLATELET MORPHOLOGY NORMAL; TOTAL CELLS COUNTED 100
[2017-03-07 12:00] VITALS: BP 111/71
--- NOTE | 2017-03-07 12:06 | Neurology Progress Note ---
Interim History Interim History Interim History Ms. Werner continues to be poorly responsive. She can be aroused on painful stimulation and is able to maintain arousal for a few seconds at a time. She is non-verbal. She does not follow any commands. She is breathing comfortably. She is being fed through her G-tube. There has been no significant improvement in her condition. Review of Systems Neuro Review of Systems Unable to obtain. Objective Physical Exam Last Vital Signs Date Time Temp Pulse Resp B/P (MAP) Pulse Ox O2 Delivery O2 Flow Rate FiO2 03/07/17 08:20 Venturi Mask 14.0 55 03/07/17 08:20 80 22 03/07/17 08:20 97 03/07/17 08:00 98.4 112/56 Laboratory Tests Test 03/07/17 06:00 03/07/17 10:25 White Blood Count 16.3 K/UL (4.8-10.8) H Red Blood Count 2.27 M/UL (4.20-5.40) L Hemoglobin 7.6 G/DL (12.0-16.0) L Hematocrit 22.5 % (37.0-47.0) L Mean Corpuscular Volume 99 FL (80-99) Mean Corpuscular Hemoglobin 33.4 PG (27.0-31.0) H Mean Corpuscular Hemoglobin Concent 33.7 G/DL (32.0-36.0) Red Cell Distribution Width 12.8 % (11.6-14.8) Platelet Count 351 K/UL (150-450) Mean Platelet Volume 5.6 FL (6.5-10.1) L Neutrophils (%) (Auto) % (45.0-75.0) Lymphocytes (%) (Auto) % (20.0-45.0) Monocytes (%) (Auto) % (1.0-10.0) Eosinophils (%) (Auto) % (0.0-3.0) Basophils (%) (Auto) % (0.0-2.0) Differential Total Cells Counted 100 Neutrophils % (Manual) 86 % (45-75) H Lymphocytes % (Manual) 6 % (20-45) L Monocytes % (Manual) 7 % (1-10) Eosinophils % (Manual) 1 % (0-3) Basophils % (Manual) 0 % (0-2) Band Neutrophils 0 % (0-8) Platelet Estimate Adequate Platelet Morphology Normal Hypochromasia 1+ Sodium Level 143 mEQ/L (135-145) Potassium Level 3.3 mEQ/L (3.4-4.9) L Chloride Level 99 mEQ/L (98-107) Carbon Dioxide Level 37 mEQ/L (20-30) H Anion Gap 7 (5-15) Blood Urea Nitrogen 21 mg/dL (7-23) Creatinine 1.0 mg/dL (0.5-0.9) H Estimat Glomerular Filtration Rate mL/min (>60) Glucose Level 134 mg/dL (74-106) H Calcium Level 8.8 mg/dL (8.6-10.2) Magnesium Level 1.8 mg/dL (1.7-2.5) Total Bilirubin 0.3 mg/dL (0.0-1.2) Aspartate Amino Transf (AST/SGOT) 17 U/L (5-40) Alanine Aminotransferase (ALT/SGPT) 9 U/L (3-33) Alkaline Phosphatase 71 U/L (35-104) Total Protein 5.8 g/dL (6.6-8.7) L Albumin 2.1 g/dL (3.5-5.2) L Globulin 3.7 g/dL Albumin/Globulin Ratio 0.5 (1.0-2.7) L Stool Occult Blood Negative (NEGATIVE) Neurologic Exam Objective PHYSICAL EXAMINATION: GENERAL: She is a well-developed but lean lady, lying in bed, in no acute distress. HEAD: Normocephalic and atraumatic. EENT: Examination benign. NECK: No neck rigidity was observed. NEUROLOGIC EXAMINATION: MENTAL STATUS EXAMINATION: She was sleeping when I went to see her. She did wake up on painful stimulation. She was able to maintain arousal for as long as she was kept occupied. She was mute and did not follow any commands. SPEECH: Could not be tested as she was mute. LANGUAGE: She did not follow simple commands and did not say a single word. CRANIAL NERVE EXAMINATION: II: She did blink to threat. III, IV & : The external ocular movements were full. The pupils were 4 mm in diameter, equal, round, regular, and reactive sluggishly to light. V & VII: The corneal reflexes were present bilaterally, but left-sided reflex was brisker than the right. In addition, she also had flattening of the right nasolabial fold and mild right VII central facial paresis. VIII: She did respond to sounds. IX & X: The gag reflex was present, but significantly diminished. XI: The sternocleidomastoids and trapezii did function. XII: The tongue was in the midline without any fasciculations or atrophy. MOTOR SYSTEM: The tone was normal in the right upper extremity and both lower extremities. It could not be tested adequately in the left upper extremity because the left upper extremity was in an immobilizer. Examination of muscle mass revealed generalized muscle wasting. Examination of power was impossible to perform on individual muscle groups. She responded to deep pain with minimal withdrawal in all four extremities, but would not chrome tanner my hand. SENSORY EXAMINATION: She responded appropriately to deep pain with a moan and withdrawal. She could not cooperate for other sensory modalities. REFLEXES: 2++ on the right and 1+ on the left at the biceps, triceps, brachioradialis, and knees and 0 at both ankles. The plantar responses were extensor bilaterally. COORDINATION, STANCE & GAIT : Could not be tested. Impression/Recommendations Diagnostic Impression 1. Ms Debi Werner is an 87-year-old, right-handed, lady, who does have past history of depression, hypertension, thyroid disease, spinal stenosis , atrial fibrillation, and dementia, who recently had left humerus fracture that was treated surgically. Following surgery, she became more altered than at baseline. She was then stabilized at [facility] and then sent to a half-way. At the half-way, she apparently vomited and aspirated and as a result of that had to be readmitted to [facility] for an aspiration pneumonia and sepsis. 2. She looks about the same as yesterday. She is able to maintain arousal for as long as she is kept occupied. 3. On neurological examination, at this time, she can be aroused with painful stimuli, but is mute and unable to communicate in any manner. She also has right VII central facial paresis, brisker deep tendon reflexes on the right side , and extensor plantar responses bilaterally. 4. A prolonged electroencephalogram performed for two days at [facility] revealed an encephalopathy of moderate degree and in addition, left temporal interictal discharges, but no ictal phenomena. 5. An MRI scan of the brain performed recently at [facility] revealed atrophy , deep white matter disease, and a left centrum semiovale infarct. 6. Her laboratory data on my initial evaluation revealed a WBC count elevated to 12,500, an anemia with hemoglobin of 9.2 G. The chemistry panel revealed an elevated blood glucose at 141, elevated CK at 166, and lactic acid that was elevated to 7.4 when she came in. The Urinalysis revealed 1+ leukocyte esterase with 2-4 red blood cells and 2-4 white blood cells per high-power field , and a moderate amount of yeast with few bacteria. 7. [place] [facility] [place] moderately severe encephalopathy with a toxic metabolic component as evidenced by triphasic waves. 8. The patient's history, neurological examination, imaging studies, electroencephalogram findings, and laboratory data are most compatible with an underlying dementia with superimposed toxic encephalopathy related to her pneumonia and sepsis. 9. 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 10. Her altered mental state is related to the ongoing multifactorial encephalopathy. Recommendations 1. Continue present management including aggressive treatment of the patient's infectious process and respiratory process. 2. Watch her off anti-seizure medicines. 3. Observe closely. Michael Cross M.D., M.S.P.H. MICHAEL CROSS Mar 07, 2017 12:06
[2017-03-07 13:13] LABS: OTHERS PATHOLOGIST COMMENT
[2017-03-07 16:00] VITALS: BP 135/65
--- NOTE | 2017-03-07 16:26 | Pulmonology Progress Note ---
Assessment/Plan Assessment/Plan 1. Sepsis due to pneumonia. + BC GPC clusters 2. Pneumonia. 3. Dementia. 4. Lactic acidosis. 5. Left humerus fracture. 6. Status post stroke. 7. Paroxysmal atrial fibrillation. 8. Seizure disorder. 9. Hyperglycemia. 10. CHF + BC as above, possibly from pneumonia high risk for resp failure full code per family cont abx, IV GT feeds continue Lasix CXR edema vs pneumonia (WBC better) cxr Thursday titrate o2 Subjective ROS Limited/Unobtainable: Yes Allergies: Coded Allergies: NO KNOWN ALLERGIES (Unverified Allergy, Unknown, 08/24/15) Subjective seen examined remaisn on o2 obtunded no distress no fever noted no reports of cp nv or bleeding pain controlled Objective Last 24 Hour Vital Signs Date Time Temp Pulse Resp B/P (MAP) Pulse Ox O2 Delivery O2 Flow Rate FiO2 03/07/17 16:00 97.7 80 18 135/65 97 Venturi Mask 55.0 03/07/17 12:00 98.4 78 18 111/71 95 Venturi Mask 55 03/07/17 12:00 76 03/07/17 08:20 Venturi Mask 14.0 55 03/07/17 08:20 80 22 Venturi Mask 14.0 55 03/07/17 08:20 97 Venturi Mask 14.0 55 03/07/17 08:00 98.4 80 20 112/56 97 Venturi Mask 55 03/07/17 08:00 78 03/07/17 04:00 98.1 77 24 124/54 99 Venturi Mask 15.0 55 03/07/17 04:00 82 03/07/17 00:55 97.9 69 24 125/54 99 Venturi Mask 15.0 03/07/17 00:00 76 03/06/17 20:35 85 26 Venturi Mask 14.0 55 03/06/17 20:35 95 Venturi Mask 14.0 55 03/06/17 20:35 Venturi Mask 14.0 55 03/06/17 20:00 97.8 88 28 105/58 90 Simple Mask 13.0 03/06/17 20:00 79 Intake and Output 03/07/17 03/08/17 19:00 07:00 Intake Total 137.5 ml Balance 137.5 ml IV Total 137.5 ml General Appearance: cachetic HEENT: atraumatic, anicteric Respiratory/Chest: rhonchi Cardiovascular: regular rhythm, murmur systolic Abdomen: soft, non tender, non distended Extremities: other - edema Neurologic/Psychiatric: sensory deficit Microbiology Date/Time Source Procedure Growth Status 03/04/17 20:20 Blood Blood Culture - Preliminary Staphylococcus Species Resulted 03/04/17 19:10 Blood Blood Culture - Preliminary NO GROWTH AFTER 48 HOURS Resulted 03/05/17 10:45 Sputum Gram Stain - Final Resulted 03/05/17 10:45 Sputum Culture - Preliminary Staphylococcus Aureus Kendra Albicans Resulted 03/05/17 15:20 Stool Clostridium difficile Toxin Assay - Final Complete 03/05/17 23:30 Urine,Clean Catch Urine Culture - Preliminary NO GROWTH AFTER 24 HOURS Resulted 03/04/17 18:50 Straight Cath Urine Culture - Final NO GROWTH AFTER 48 HOURS Complete Laboratory Tests 03/07/17 06:00: White Blood Count 16.3H, Red Blood Count 2.27L, Hemoglobin 7.6L, Hematocrit 22.5L, Mean Corpuscular Volume 99, Mean Corpuscular Hemoglobin 33.4H, Mean Corpuscular Hemoglobin Concent 33.7, Red Cell Distribution Width 12.8, Platelet Count 351, Mean Platelet Volume 5.6L, Neutrophils (%) (Auto) , Lymphocytes (%) ( Auto) , Monocytes (%) (Auto) , Eosinophils (%) (Auto) , Basophils (%) (Auto) , Differential Total Cells Counted 100, Neutrophils % (Manual) 86H, Lymphocytes % (Manual) 6L, Monocytes % (Manual) 7, Eosinophils % (Manual) 1, Basophils % ( Manual) 0, Band Neutrophils 0, Platelet Estimate Adequate, Platelet Morphology Normal, Hypochromasia 1+, Sodium Level 143, Potassium Level 3.3L, Chloride Level 99, Carbon Dioxide Level 37H, Anion Gap 7, Blood Urea Nitrogen 21, Creatinine 1.0H, Estimat Glomerular Filtration Rate , Glucose Level 134H, Calcium Level 8.8, Magnesium Level 1.8, Total Bilirubin 0.3, Aspartate Amino Transf (AST/SGOT) 17, Alanine Aminotransferase (ALT/SGPT) 9, Alkaline Phosphatase 71, Total Protein 5.8L, Albumin 2.1L, Globulin 3.7, Albumin/ Globulin Ratio 0.5L 03/07/17 10:25: Stool Occult Blood Negative Current Medications Medications (Trade) Dose Ordered Sig/Autumn Route PRN Reason Start Time Stop Time Status Last Admin Dose Admin Chlorhexidine Gluconate (Lauren-Hex 2%) 1 applic DAILY TOPIC 03/03/17 09:00 04/02/17 08:59 03/07/17 08:43 Furosemide (Lasix) 40 mg DAILY IV 03/04/17 13:30 04/03/17 13:29 03/07/17 08:44 Heparin Sodium (Porcine) (Heparin 5000 units/ml) 5,000 units Q12H SUBQ 02/24/17 21:00 03/26/17 20:59 03/07/17 08:46 Magnesium Oxide (Mag-Ox 400mg) 400 mg BID PEG 03/07/17 18:00 03/07/17 23:55 Pantoprazole (Protonix) 40 mg EVERY 12 HOURS IVP 02/24/17 12:00 03/26/17 11:59 03/07/17 08:44 Piperacillin Sod/ Tazobactam Sod 3.375 gm/Dextrose 110 ml @ 27.5 mls/hr EVERY 8 HOURS IV 03/04/17 22:00 03/11/17 21:59 03/07/17 14:07 Potassium Chloride (KCl 10% 20 mEq oral solution) 20 meq BID PEG 03/05/17 18:00 04/04/17 17:59 03/07/17 08:43 Thiamine HCl (Vitamin B1) 100 mg DAILY GT 03/04/17 16:45 04/03/17 16:44 03/07/17 08:44 Vancomycin HCl (Vanco rx to dose) 1 ea DAILY PRN MISC PER RX PROTOCOL 02/24/17 09:00 03/26/17 08:59 Vancomycin HCl 1 gm/Dextrose 275 ml @ 183.708 mls/hr Q24H IVPB 03/06/17 04:00 03/11/17 03:59 03/07/17 03:56 PAM MANCILLA DO Mar 07, 2017 16:26
[2017-03-07] MEDS ORDERED: Magnesium Oxide 400mg tab PEG SCH (18:00)
[2017-03-07] MEDS ORDERED: NS 500ML IV ONE (18:09)
[2017-03-07] MEDS ORDERED: Tubing IV Secondary IV ONE (18:09)
[2017-03-07] MEDS ORDERED: NS 275ml ONE (18:09)
[2017-03-07 20:00] VITALS: BP 116/56
[2017-03-08] VITALS (7 sets, daily range): BP systolic 106–147; BP diastolic 49–73
[2017-03-08] MEDS: Vancomycin 1gm/D5W 275ml IVPB SCH ×2 (03:18)
[2017-03-08 05:21] LABS: MEAN CORPUSCULAR HEMOGLOBIN 33.7 PG (27.0-31.0); MEAN CORPUSCULAR HGB CONC 34.8 G/DL (32.0-36.0); MEAN CORPUSCULAR VOLUME 97 FL (80-99); MEAN PLATELET VOLUME 5.5 FL (6.5-10.1); PLATELET COUNT 357 K/UL (150-450); RED BLOOD COUNT 2.75 M/UL (4.20-5.40); RED CELL DISTRIBUTION WIDTH 13.7 % (11.6-14.8); WHITE BLOOD COUNT 14.3 K/UL (4.8-10.8)
[2017-03-08 05:38] LABS: ANION GAP 7 (5-15); CALCIUM 9.1 mg/dL (8.6-10.2); CARBON DIOXIDE 38 mEQ/L (20-30); CHLORIDE 96 mEQ/L (98-107); HEMOLYSIS 3; POTASSIUM 3.4 mEQ/L (3.4-4.9); SODIUM 141 mEQ/L (135-145)
[2017-03-08] MEDS: Piperacillin/Tazobactam 3.375 GM in D5W 110 ML IV SCH ×3 (05:51→21:31)
[2017-03-08] MEDS: Dyna-Hex 2% Top Sol 2oz TOPIC SCH (09:17)
[2017-03-08] MEDS: KCl 10% 20 mEq/15ml liquid PEG SCH ×2 (09:17→17:02)
[2017-03-08] MEDS: Thiamine 100mg tab GT SCH (09:18)
[2017-03-08] MEDS: Heparin 5000 units/ml inj SUBQ SCH ×2 (09:19→21:35)
[2017-03-08] MEDS: Pantoprazole Inj IVP SCH ×2 (10:20→21:31)
[2017-03-08 10:44] LABS: BAND NEUTROPHILS % (MANUAL) 0 % (0-8); BASOPHILS % (MANUAL) 0 % (0-2); EOSINOPHILS % (MANUAL) 0 % (0-3); HYPOCHROMASIA 2+; LYMPHOCYTES % (MANUAL) 8 % (20-45); NEUTROPHILS % (MANUAL) 87 % (45-75); PLATELET ESTIMATE ADEQUATE; PLATELET MORPHOLOGY NORMAL; TOTAL CELLS COUNTED 100
--- NOTE | 2017-03-08 14:03 | Neurology Progress Note ---
Interim History Interim History Interim History Ms. Werner is poorly responsive. She can be aroused on painful stimulation and is able to maintain arousal. She is non-verbal. She does not follow any commands. She is breathing comfortably. She is being fed through her G-tube. There has been no significant improvement in her condition. Review of Systems Neuro Review of Systems Unable to obtain. Objective Physical Exam Last Vital Signs Date Time Temp Pulse Resp B/P (MAP) Pulse Ox O2 Delivery O2 Flow Rate FiO2 03/08/17 11:50 97.5 79 20 130/52 97 Venturi Mask 10.0 03/08/17 07:47 55 Laboratory Tests Test 03/08/17 04:30 White Blood Count 14.3 K/UL (4.8-10.8) H Red Blood Count 2.75 M/UL (4.20-5.40) L Hemoglobin 9.3 G/DL (12.0-16.0) L Hematocrit 26.7 % (37.0-47.0) L Mean Corpuscular Volume 97 FL (80-99) Mean Corpuscular Hemoglobin 33.7 PG (27.0-31.0) H Mean Corpuscular Hemoglobin Concent 34.8 G/DL (32.0-36.0) Red Cell Distribution Width 13.7 % (11.6-14.8) Platelet Count 357 K/UL (150-450) Mean Platelet Volume 5.5 FL (6.5-10.1) L Neutrophils (%) (Auto) % (45.0-75.0) Lymphocytes (%) (Auto) % (20.0-45.0) Monocytes (%) (Auto) % (1.0-10.0) Eosinophils (%) (Auto) % (0.0-3.0) Basophils (%) (Auto) % (0.0-2.0) Differential Total Cells Counted 100 Neutrophils % (Manual) 87 % (45-75) H Lymphocytes % (Manual) 8 % (20-45) L Monocytes % (Manual) 5 % (1-10) Eosinophils % (Manual) 0 % (0-3) Basophils % (Manual) 0 % (0-2) Band Neutrophils 0 % (0-8) Platelet Estimate Adequate Platelet Morphology Normal Hypochromasia 2+ Sodium Level 141 mEQ/L (135-145) Potassium Level 3.4 mEQ/L (3.4-4.9) Chloride Level 96 mEQ/L (98-107) L Carbon Dioxide Level 38 mEQ/L (20-30) H Anion Gap 7 (5-15) Blood Urea Nitrogen 19 mg/dL (7-23) Creatinine 1.0 mg/dL (0.5-0.9) H Estimat Glomerular Filtration Rate mL/min (>60) Glucose Level 176 mg/dL (74-106) H Calcium Level 9.1 mg/dL (8.6-10.2) Pro-B-Type Natriuretic Peptide 3672 pg/mL (0-450) H Neurologic Exam Objective PHYSICAL EXAMINATION: GENERAL: She is a well-developed but lean lady, lying in bed, in no acute distress. HEAD: Normocephalic and atraumatic. EENT: Examination benign. NECK: No neck rigidity was observed. NEUROLOGIC EXAMINATION: MENTAL STATUS EXAMINATION: She was sleeping when I went to see her. She did wake up on painful stimulation. She was able to maintain arousal for as long as she was kept occupied. She was mute and did not follow any commands. SPEECH: Could not be tested as she was mute. LANGUAGE: She did not follow simple commands and did not say a single word. CRANIAL NERVE EXAMINATION: II: She did blink to threat. III, IV & : The external ocular movements were present on OCM. The pupils were 4 mm in diameter, equal, round, regular, and reactive sluggishly to light. V & VII: The corneal reflexes were present bilaterally, but left-sided reflex was brisker than the right. In addition, she also had flattening of the right nasolabial fold and a mild right VII central facial paresis. VIII: She did respond to sounds. IX & X: The gag reflex was present, but significantly diminished. XI: The sternocleidomastoids and trapezii did function. XII: The tongue was in the midline without any fasciculations or atrophy. MOTOR SYSTEM: The tone was normal in the right upper extremity and both lower extremities. It could not be tested adequately in the left upper extremity because the left upper extremity was in an immobilizer. Examination of muscle mass revealed generalized muscle wasting. Examination of power was impossible to perform on individual muscle groups. She responded to deep pain with minimal withdrawal in all four extremities, but would not enterprise application developer my hand. SENSORY EXAMINATION: She responded appropriately to deep pain with a moan and withdrawal. She could not cooperate for other sensory modalities. REFLEXES: 2++ on the right and 1+ on the left at the biceps, triceps, brachioradialis, and knees and 0 at both ankles. The plantar responses were extensor bilaterally. COORDINATION, STANCE & GAIT : Could not be tested. Impression/Recommendations Diagnostic Impression 1. Ms Debi Werner is an 87-year-old, right-handed, lady, who does have past history of depression, hypertension, thyroid disease, spinal stenosis , atrial fibrillation, and dementia, who recently had left humerus fracture that was treated surgically. Following surgery, she became more altered than at baseline. She was then stabilized at [facility] and then [place], she apparently vomited and aspirated and as a result of that had to be readmitted to [facility] for an aspiration pneumonia and sepsis. 2. She looks about the same as yesterday. She is able to maintain arousal for as long as she is kept occupied. 3. On neurological examination, at this time, she can be aroused with painful stimuli, but is mute and unable to communicate in any manner. She also has right VII central facial paresis, brisker deep tendon reflexes on the right side , and extensor plantar responses bilaterally. 4. A prolonged electroencephalogram performed for two days at [facility] revealed an encephalopathy of moderate degree and in addition, left temporal interictal discharges, but no ictal phenomena. 5. An MRI scan of the brain performed recently at [facility] revealed atrophy , deep white matter disease, and a left centrum semiovale recent infarct. 6. Her laboratory data on my initial evaluation revealed a WBC count elevated to 12,500, an anemia with hemoglobin of 9.2 G. The chemistry panel revealed an elevated blood glucose at 141, elevated CK at 166, and lactic acid that was elevated to 7.4 when she came in. The Urinalysis revealed 1+ leukocyte esterase with 2-4 red blood cells and 2-4 white blood cells per high-power field , and a moderate amount of yeast with few bacteria. 7. The EEG done at [facility] revealed a moderately severe encephalopathy with a toxic metabolic component as evidenced by triphasic waves. 8. The patient's history, neurological examination, imaging studies, electroencephalogram findings, and laboratory data are most compatible with an underlying dementia with superimposed toxic encephalopathy related to her pneumonia and sepsis. 9. 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 10. Her altered mental state is related to the ongoing multifactorial encephalopathy. Recommendations 1. Continue present management including aggressive treatment of the patient's infectious process and respiratory process. 2. Watch her off anti-seizure medicines. 3. Observe closely. Michael Cross M.D., M.S.P.[place]. MICHAEL CROSS Mar 08, 2017 14:03
--- NOTE | 2017-03-08 14:51 | Geriatric Progress Note ---
Assessment/Plan Problems: (1) Dementia (2) Depression, major, recurrent, severe with psychosis (3) Dysphagia due to recent cerebrovascular accident (CVA) (4) Abnormal EKG (5) Pneumonia (6) Severe sepsis (7) Respiratory distress (8) Comminuted left humeral fracture with routine healing (9) Leukocytosis (10) Bacteremia due to Gram-positive bacteria Assessment/Plan Wbc slightly down. Microbiology makes pulmonary source more likely, central line less likely. Complete course per pulmonology. Anemia improved post transfusion, likely due to bone marrow suppression from illness, no evidence of bleeding at present. Nutrition improved on PEG. More alert, non-verbal. Given various improvements may be candidate for d/c to [facility] tomorrow. Will recheck labs. Discussed with dtr in detail. Consider placement of PICC line with removal of central line if radiology able. Would culture line tip. Entire situation reviewed with dtr in detail, she is in agreement with current approach. Discussed with: family, hospital staff Subjective Interval Events Patient transfused. More alert with eyes open more of the time, but no verbal response. No overt distress. Tolerating PEG feedings, no diarrhea. Yesterdays guaiac stool -. Wbc slightly better. Repeat C&S through central line NGTD. Sputum C&S with S aureus MSSA, sensitive ot Vanco. Original central line blood C&S: S hominis, making contaminant more likely. ProBNP no significantly different. Staff reports no new issues otherwise. Subjective Does not respond. Geriatric Geriatric Last 24 Hour Vital Signs Date Time Temp Pulse Resp B/P (MAP) Pulse Ox O2 Delivery O2 Flow Rate FiO2 03/08/17 11:50 97.5 79 20 130/52 97 Venturi Mask 10.0 03/08/17 08:00 77 03/08/17 07:52 97.7 75 20 138/59 98 Venturi Mask 10.0 03/08/17 07:47 Venturi Mask 14.0 55 03/08/17 07:46 97 Venturi Mask 14.0 55 03/08/17 07:45 89 23 Venturi Mask 14.0 55 03/08/17 04:00 97.5 75 18 130/63 95 03/08/17 04:00 78 03/08/17 00:00 97.7 72 17 106/49 96 Venturi Mask 14.0 55 03/08/17 00:00 77 03/07/17 20:00 76 03/07/17 20:00 97.3 72 16 116/56 97 Venturi Mask 14.0 55 03/07/17 19:48 97 Venturi Mask 14.0 55 03/07/17 19:48 Venturi Mask 14.0 55 03/07/17 19:48 84 23 Venturi Mask 14.0 55 03/07/17 16:00 80 03/07/17 16:00 97.7 80 18 135/65 97 Venturi Mask 55.0 Laboratory Tests Test 03/08/17 04:30 White Blood Count 14.3 K/UL (4.8-10.8) H Red Blood Count 2.75 M/UL (4.20-5.40) L Hemoglobin 9.3 G/DL (12.0-16.0) L Hematocrit 26.7 % (37.0-47.0) L Mean Corpuscular Volume 97 FL (80-99) Mean Corpuscular Hemoglobin 33.7 PG (27.0-31.0) H Mean Corpuscular Hemoglobin Concent 34.8 G/DL (32.0-36.0) Red Cell Distribution Width 13.7 % (11.6-14.8) Platelet Count 357 K/UL (150-450) Mean Platelet Volume 5.5 FL (6.5-10.1) L Neutrophils (%) (Auto) % (45.0-75.0) Lymphocytes (%) (Auto) % (20.0-45.0) Monocytes (%) (Auto) % (1.0-10.0) Eosinophils (%) (Auto) % (0.0-3.0) Basophils (%) (Auto) % (0.0-2.0) Differential Total Cells Counted 100 Neutrophils % (Manual) 87 % (45-75) H Lymphocytes % (Manual) 8 % (20-45) L Monocytes % (Manual) 5 % (1-10) Eosinophils % (Manual) 0 % (0-3) Basophils % (Manual) 0 % (0-2) Band Neutrophils 0 % (0-8) Platelet Estimate Adequate Platelet Morphology Normal Hypochromasia 2+ Sodium Level 141 mEQ/L (135-145) Potassium Level 3.4 mEQ/L (3.4-4.9) Chloride Level 96 mEQ/L (98-107) L Carbon Dioxide Level 38 mEQ/L (20-30) H Anion Gap 7 (5-15) Blood Urea Nitrogen 19 mg/dL (7-23) Creatinine 1.0 mg/dL (0.5-0.9) H Estimat Glomerular Filtration Rate mL/min (>60) Glucose Level 176 mg/dL (74-106) H Calcium Level 9.1 mg/dL (8.6-10.2) Pro-B-Type Natriuretic Peptide 3672 pg/mL (0-450) H Current Medications Medications (Trade) Dose Ordered Sig/Autumn Route PRN Reason Start Time Stop Time Status Last Admin Dose Admin Chlorhexidine Gluconate (Lauren-Hex 2%) 1 applic DAILY@2000 TOPIC 03/09/17 20:00 04/08/17 19:59 Furosemide (Lasix) 40 mg DAILY IV 03/04/17 13:30 04/03/17 13:29 03/08/17 09:17 Heparin Sodium (Porcine) (Heparin 5000 units/ml) 5,000 units Q12H SUBQ 02/24/17 21:00 03/26/17 20:59 03/08/17 09:19 Pantoprazole (Protonix) 40 mg EVERY 12 HOURS IVP 02/24/17 12:00 03/26/17 11:59 03/08/17 10:20 Piperacillin Sod/ Tazobactam Sod 3.375 gm/Dextrose 110 ml @ 27.5 mls/hr EVERY 8 HOURS IV 03/04/17 22:00 03/11/17 21:59 03/08/17 14:33 Potassium Chloride (KCl 10% 20 mEq oral solution) 20 meq BID PEG 03/05/17 18:00 04/04/17 17:59 03/08/17 09:17 Thiamine HCl (Vitamin B1) 100 mg DAILY GT 03/04/17 16:45 04/03/17 16:44 03/08/17 09:18 Vancomycin HCl (Vanco rx to dose) 1 ea DAILY PRN MISC PER RX PROTOCOL 02/24/17 09:00 03/26/17 08:59 Vancomycin HCl 1 gm/Dextrose 275 ml @ 183.708 mls/hr Q24H IVPB 03/06/17 04:00 03/11/17 03:59 03/08/17 03:18 Height (Feet): 5 Height (Inches): 5.00 Weight (Pounds): 100 General Appearance: no apparent distress, alert Eyes: bilateral anicteric Neck: no mass Respiratory: rales - decreased somewhat, rhonchi Cardiovascular: regular rate, rhythm Gastrointestinal: normal bowel sounds, non tender, soft, no mass, no organomegaly, non-distended Edema: other - RUE edema reduced. Neurologic: no new focality GEETA WOOD Mar 08, 2017 14:50
[2017-03-08] MEDS ORDERED: Tubing Blood Filter IV ONE (15:46)
[2017-03-08] MEDS ORDERED: NS 275ml ONE (15:46)
--- NOTE | 2017-03-08 18:33 | Pulmonology Progress Note ---
Assessment/Plan Assessment/Plan 1. Sepsis due to pneumonia. + BC GPC clusters 2. Pneumonia. 3. Dementia. 4. Lactic acidosis. 5. Left humerus fracture. 6. Status post stroke. 7. Paroxysmal atrial fibrillation. 8. Seizure disorder. 9. Hyperglycemia. 10. CHF + BC as above, possibly from pneumonia repeat cultures negative high risk for resp failure full code per family cont abx, IV GT feeds continue Lasix CXR edema vs pneumonia (WBC better) cxr Thursday titrate o2 Subjective Allergies: Coded Allergies: NO KNOWN ALLERGIES (Unverified Allergy, Unknown, 08/24/15) Subjective seen examined no change from yesterday remain on o2 via FM obtunded no distress no fever noted Tolerating TF no reports of cp nv or bleeding no evidence of pain Objective Last 24 Hour Vital Signs Date Time Temp Pulse Resp B/P (MAP) Pulse Ox O2 Delivery O2 Flow Rate FiO2 03/08/17 16:08 97.9 78 20 128/55 98 Venturi Mask 10.0 03/08/17 16:00 77 03/08/17 12:00 77 03/08/17 11:50 97.5 79 20 130/52 97 Venturi Mask 10.0 03/08/17 08:00 77 03/08/17 07:52 97.7 75 20 138/59 98 Venturi Mask 10.0 03/08/17 07:47 Venturi Mask 14.0 55 03/08/17 07:46 97 Venturi Mask 14.0 55 03/08/17 07:45 89 23 Venturi Mask 14.0 55 03/08/17 04:00 97.5 75 18 130/63 95 03/08/17 04:00 78 03/08/17 00:00 97.7 72 17 106/49 96 Venturi Mask 14.0 55 03/08/17 00:00 77 03/07/17 20:00 76 03/07/17 20:00 97.3 72 16 116/56 97 Venturi Mask 14.0 55 03/07/17 19:48 97 Venturi Mask 14.0 55 03/07/17 19:48 Venturi Mask 14.0 55 03/07/17 19:48 84 23 Venturi Mask 14.0 55 Intake and Output 03/08/17 03/09/17 19:00 07:00 Intake Total 200 ml Balance 200 ml Intake Free Water 50 ml Tube Feeding 150 ml # Voids 5 General Appearance: cachetic HEENT: atraumatic, anicteric Respiratory/Chest: rhonchi Cardiovascular: normal rate, regular rhythm, murmur systolic Abdomen: soft, non tender, non distended Skin: other - edema Neurologic/Psychiatric: disoriented Microbiology Date/Time Source Procedure Growth Status 03/06/17 18:30 Blood Blood Culture - Preliminary NO GROWTH AFTER 24 HOURS Resulted 03/05/17 23:30 Urine,Clean Catch Urine Culture - Preliminary NO GROWTH AFTER 48 HOURS Resulted Laboratory Tests 03/08/17 04:30: White Blood Count 14.3H, Red Blood Count 2.75L, Hemoglobin 9.3L, Hematocrit 26.7L, Mean Corpuscular Volume 97, Mean Corpuscular Hemoglobin 33.7H, Mean Corpuscular Hemoglobin Concent 34.8, Red Cell Distribution Width 13.7, Platelet Count 357, Mean Platelet Volume 5.5L, Neutrophils (%) (Auto) , Lymphocytes (%) ( Auto) , Monocytes (%) (Auto) , Eosinophils (%) (Auto) , Basophils (%) (Auto) , Differential Total Cells Counted 100, Neutrophils % (Manual) 87H, Lymphocytes % (Manual) 8L, Monocytes % (Manual) 5, Eosinophils % (Manual) 0, Basophils % ( Manual) 0, Band Neutrophils 0, Platelet Estimate Adequate, Platelet Morphology Normal, Hypochromasia 2+, Sodium Level 141, Potassium Level 3.4, Chloride Level 96L, Carbon Dioxide Level 38H, Anion Gap 7, Blood Urea Nitrogen 19, Creatinine 1.0H, Estimat Glomerular Filtration Rate , Glucose Level 176H, Calcium Level 9.1 , Pro-B-Type Natriuretic Peptide 3672H Current Medications Medications (Trade) Dose Ordered Sig/Autumn Route PRN Reason Start Time Stop Time Status Last Admin Dose Admin Chlorhexidine Gluconate (Lauren-Hex 2%) 1 applic DAILY TOPIC 03/09/17 09:00 04/08/17 08:59 Chlorhexidine Gluconate (Lauren-Hex 2%) 1 applic DAILY@1999 TOPIC 03/09/17 20:00 04/08/17 19:59 Furosemide (Lasix) 40 mg DAILY IV 03/04/17 13:30 04/03/17 13:29 03/08/17 09:17 Heparin Sodium (Porcine) (Heparin 5000 units/ml) 5,000 units Q12H SUBQ 02/24/17 21:00 03/26/17 20:59 03/08/17 09:19 Pantoprazole (Protonix) 40 mg EVERY 12 HOURS IVP 02/24/17 12:00 03/26/17 11:59 03/08/17 10:20 Piperacillin Sod/ Tazobactam Sod 3.375 gm/Dextrose 110 ml @ 27.5 mls/hr EVERY 8 HOURS IV 03/04/17 22:00 03/11/17 21:59 03/08/17 14:33 Potassium Chloride (KCl 10% 20 mEq oral solution) 20 meq BID PEG 03/05/17 18:00 04/04/17 17:59 03/08/17 17:02 Thiamine HCl (Vitamin B1) 100 mg DAILY GT 03/04/17 16:45 04/03/17 16:44 03/08/17 09:18 Vancomycin HCl (Vanco rx to dose) 1 ea DAILY PRN MISC PER RX PROTOCOL 02/24/17 09:00 03/26/17 08:59 Vancomycin HCl 1 gm/Dextrose 275 ml @ 183.708 mls/hr Q24H IVPB 03/06/17 04:00 03/11/17 03:59 03/08/17 03:18 PAM MANCILLA DO Mar 08, 2017 18:33
[2017-03-09 00:17] VITALS: BP 126/68
[2017-03-09 04:02] VITALS: BP 128/74
[2017-03-09] MEDS: Vancomycin 1gm/D5W 275ml IVPB SCH ×2 (04:12)
[2017-03-09] MEDS: Piperacillin/Tazobactam 3.375 GM in D5W 110 ML IV SCH ×3 (06:01→21:03)
[2017-03-09] MEDS ORDERED: Dyna-Hex 2% Top Sol 2oz TOPIC SCH ×3 (07:00→20:00)
[2017-03-09 07:58] LABS: BASOPHILS % (AUTO) 0.4 % (0.0-2.0); EOSINOPHILS % (AUTO) 0.3 % (0.0-3.0); LYMPHOCYTES % (AUTO) 10.6 % (20.0-45.0); MEAN CORPUSCULAR HEMOGLOBIN 33.1 PG (27.0-31.0); MEAN CORPUSCULAR HGB CONC 33.9 G/DL (32.0-36.0); MEAN CORPUSCULAR VOLUME 98 FL (80-99); MEAN PLATELET VOLUME 5.2 FL (6.5-10.1); MONOCYTES % (AUTO) 5.8 % (1.0-10.0); NEUTROPHILS % (AUTO) 82.9 % (45.0-75.0); PLATELET COUNT 363 K/UL (150-450); RED BLOOD COUNT 2.79 M/UL (4.20-5.40); RED CELL DISTRIBUTION WIDTH 13.1 % (11.6-14.8); WHITE BLOOD COUNT 13.6 K/UL (4.8-10.8)
[2017-03-09 08:19] VITALS: BP 152/66
--- NOTE | 2017-03-09 08:29 | Cardiology Report ---
APPROVED REPORT EXAM: Two-dimensional and M-mode echocardiogram with Doppler and color Doppler. INDICATION SOB M-Mode DIMENSIONS IVSd0.7 (0.7-1.1cm)Left Atrium (MM)2.8 (1.6-4.0cm) LVDd4.5 (3.5-5.6cm)Aortic Root2.2 (2.0-3.7cm) PWd1.6 (0.7-1.1cm)Aortic Cusp Exc.1.6 (1.5-2.0cm) LVDs3.1 (2.5-4.0cm) PWs2.0 cm Technically difficult study due to pts position and arm with cast blocking. No apical Normal left ventricular chamber size, systolic function and wall motion to extent visualized. Left ventricular ejection fraction estimated to be 60-65 %. Study quality precludes accurate assessment of regional wall motion. No evidence of left ventricular hypertrophy. No evidence of pericardial effusion. All other cardiac chambers appear to be within normal limits. Focal aortic valve sclerosis with adequate cusp excursion. Thickened mitral valve leaflets with normal excursion. Mitral annulus and aortic root calcification. Pulmonic valve not well visualized. Normal tricuspid valve structure. A color flow and spectral Doppler study was performed and revealed: Mild mitral regurgitation. Trace tricuspid regurgitation. Tricuspid systolic velocities suggests peak right ventricular systolic pressure of 23 mmHg. Pulmonic regurgitation present.
[2017-03-09] MEDS: KCl 10% 20 mEq/15ml liquid PEG SCH (08:49)
[2017-03-09] MEDS: Pantoprazole Inj IVP SCH ×2 (08:50→21:03)
[2017-03-09] MEDS: Thiamine 100mg tab GT SCH (08:50)
[2017-03-09] MEDS: Heparin 5000 units/ml inj SUBQ SCH ×2 (08:51→21:07)
--- NOTE | 2017-03-09 09:14 | Pulmonology Progress Note ---
Assessment/Plan Assessment/Plan 1. Sepsis due to pneumonia. + staph hominus 2. Pneumonia. 3. Dementia. 4. Lactic acidosis. 5. Left humerus fracture. 6. Status post stroke. 7. Paroxysmal atrial fibrillation. 8. Seizure disorder. 9. Hyperglycemia. 10. CHF continues to do poorly high risk for resp failure full code per family cont abx, IV GT feeds CXR today Subjective ROS Limited/Unobtainable: Yes Allergies: Coded Allergies: NO KNOWN ALLERGIES (Unverified Allergy, Unknown, 08/24/15) Objective Last 24 Hour Vital Signs Date Time Temp Pulse Resp B/P (MAP) Pulse Ox O2 Delivery O2 Flow Rate FiO2 03/09/17 08:19 97.0 76 20 152/66 99 Venturi Mask 14.0 03/09/17 04:02 97.7 68 20 128/74 98 Venturi Mask 03/09/17 04:00 74 03/09/17 00:17 97.9 76 20 126/68 98 Mechanical Ventilator 03/09/17 00:00 74 03/08/17 21:21 97.9 76 20 147/73 98 Venturi Mask 03/08/17 21:00 98.0 76 20 147/73 98 Venturi Mask 03/08/17 20:00 77 03/08/17 19:30 95 Venturi Mask 14.0 55 03/08/17 19:30 Venturi Mask 14.0 55 03/08/17 19:30 86 21 Venturi Mask 14.0 55 03/08/17 16:08 97.9 78 20 128/55 98 Venturi Mask 10.0 03/08/17 16:00 77 03/08/17 12:00 77 03/08/17 11:50 97.5 79 20 130/52 97 Venturi Mask 10.0 General Appearance: no acute distress HEENT: atraumatic Respiratory/Chest: crackles/rales Cardiovascular: irregularly irregular Microbiology Date/Time Source Procedure Growth Status 03/06/17 18:30 Blood Blood Culture - Preliminary NO GROWTH AFTER 48 HOURS Resulted Laboratory Tests 03/09/17 06:00: White Blood Count 13.6H, Red Blood Count 2.79L, Hemoglobin 9.2L, Hematocrit 27.2L, Mean Corpuscular Volume 98, Mean Corpuscular Hemoglobin 33.1H, Mean Corpuscular Hemoglobin Concent 33.9, Red Cell Distribution Width 13.1, Platelet Count 363, Mean Platelet Volume 5.2L, Neutrophils (%) (Auto) 82.9H, Lymphocytes (%) (Auto) 10.6L, Monocytes (%) (Auto) 5.8, Eosinophils (%) (Auto) 0.3, Basophils (%) (Auto) 0.4, Sodium Level [Pending], Potassium Level [Pending], Chloride Level [Pending], Carbon Dioxide Level [Pending], Blood Urea Nitrogen [ Pending], Creatinine [Pending], Estimat Glomerular Filtration Rate [Pending], Glucose Level [Pending], Calcium Level [Pending], Magnesium Level [Pending] Current Medications Medications (Trade) Dose Ordered Sig/Autumn Route PRN Reason Start Time Stop Time Status Last Admin Dose Admin Chlorhexidine Gluconate (Lauren-Hex 2%) 1 applic DAILY@2000 TOPIC 03/09/17 20:00 04/08/17 19:59 Furosemide (Lasix) 40 mg DAILY IV 03/04/17 13:30 04/03/17 13:29 03/09/17 08:49 Heparin Sodium (Porcine) (Heparin 5000 units/ml) 5,000 units Q12H SUBQ 02/24/17 21:00 03/26/17 20:59 03/09/17 08:51 Pantoprazole (Protonix) 40 mg EVERY 12 HOURS IVP 02/24/17 12:00 03/26/17 11:59 03/09/17 08:50 Piperacillin Sod/ Tazobactam Sod 3.375 gm/Dextrose 110 ml @ 27.5 mls/hr EVERY 8 HOURS IV 03/04/17 22:00 03/11/17 21:59 03/09/17 06:01 Potassium Chloride (KCl 10% 20 mEq oral solution) 20 meq BID PEG 03/05/17 18:00 04/04/17 17:59 03/09/17 08:49 Thiamine HCl (Vitamin B1) 100 mg DAILY GT 03/04/17 16:45 04/03/17 16:44 03/09/17 08:50 Vancomycin HCl (Vanco rx to dose) 1 ea DAILY PRN MISC PER RX PROTOCOL 02/24/17 09:00 03/26/17 08:59 Vancomycin HCl 1 gm/Dextrose 275 ml @ 183.708 mls/hr Q24H IVPB 03/06/17 04:00 03/11/17 03:59 03/09/17 04:12 PAULINA ANAND Mar 09, 2017 09:14
[2017-03-09 09:31] LABS: ANION GAP 2 (5-15); CALCIUM 9.3 MG/DL (8.5-10.1); CARBON DIOXIDE 37 MMOL/L (21-32); CHLORIDE 96 MMOL/L (98-107); CREATININE 1.6 MG/DL (0.55-1.30); MAGNESIUM 1.6 MG/DL (1.8-2.4); POTASSIUM 3.4 MMOL/L (3.5-5.1); SODIUM 135 MMOL/L (136-145)
[2017-03-09] MEDS ORDERED: Lidocaine 1% Plain 30 ml INJ PRN (11:15)
[2017-03-09] MEDS ORDERED: Heparin 2000 units/Ns 1000ml INJ PRN (11:15)
[2017-03-09 12:05] VITALS: BP 129/64
--- NOTE | 2017-03-09 12:21 | Neurology Progress Note ---
Interim History Interim History Interim History Ms. Werner is poorly responsive. She can be aroused on painful stimulation and is able to maintain arousal briefly. She is non-verbal. She does not follow any commands. She is breathing comfortably. She is being fed through her G-tube. There has been no significant improvement in her condition. Review of Systems Neuro Review of Systems Unable to obtain. Objective Physical Exam Last Vital Signs Date Time Temp Pulse Resp B/P (MAP) Pulse Ox O2 Delivery O2 Flow Rate FiO2 03/09/17 12:05 97.0 81 20 129/64 95 Venturi Mask 14.0 03/09/17 09:45 50 Laboratory Tests Test 03/09/17 06:00 White Blood Count 13.6 K/UL (4.8-10.8) H Red Blood Count 2.79 M/UL (4.20-5.40) L Hemoglobin 9.2 G/DL (12.0-16.0) L Hematocrit 27.2 % (37.0-47.0) L Mean Corpuscular Volume 98 FL (80-99) Mean Corpuscular Hemoglobin 33.1 PG (27.0-31.0) H Mean Corpuscular Hemoglobin Concent 33.9 G/DL (32.0-36.0) Red Cell Distribution Width 13.1 % (11.6-14.8) Platelet Count 363 K/UL (150-450) Mean Platelet Volume 5.2 FL (6.5-10.1) L Neutrophils (%) (Auto) 82.9 % (45.0-75.0) H Lymphocytes (%) (Auto) 10.6 % (20.0-45.0) L Monocytes (%) (Auto) 5.8 % (1.0-10.0) Eosinophils (%) (Auto) 0.3 % (0.0-3.0) Basophils (%) (Auto) 0.4 % (0.0-2.0) Sodium Level 135 MMOL/L (136-145) L Potassium Level 3.4 MMOL/L (3.5-5.1) L Chloride Level 96 MMOL/L (98-107) L Carbon Dioxide Level 37 MMOL/L (21-32) H Anion Gap 2 (5-15) L Blood Urea Nitrogen 27 mg/dL (7-18) H Creatinine 1.6 MG/DL (0.55-1.30) H Estimat Glomerular Filtration Rate mL/min (>60) Glucose Level 156 MG/DL (74-106) H Calcium Level 9.3 MG/DL (8.5-10.1) Magnesium Level 1.6 MG/DL (1.8-2.4) L Neurologic Exam Objective PHYSICAL EXAMINATION: GENERAL: She is a well-developed but lean lady, lying in bed, in no acute distress. HEAD: Normocephalic and atraumatic. EENT: Examination benign. NECK: No neck rigidity was observed. NEUROLOGIC EXAMINATION: MENTAL STATUS EXAMINATION: She was sleeping when I went to see her. She did wake up on painful stimulation. She was able to maintain arousal for as long as she was kept occupied. She was mute and did not follow any commands. SPEECH: Could not be tested as she was mute. LANGUAGE: She did not follow simple commands and did not say a single word. CRANIAL NERVE EXAMINATION: II: She did blink to threat. III, IV & : The external ocular movements were present on OCM. The pupils were 4 mm in diameter, equal, round, regular, and reactive sluggishly to light. V & VII: The corneal reflexes were present bilaterally, but left-sided reflex was brisker than the right. In addition, she also had flattening of the right nasolabial fold and a mild right VII central facial paresis. VIII: She did respond to sounds. IX & X: The gag reflex was present, but significantly diminished. XI: The sternocleidomastoids and trapezii did function. XII: The tongue was in the midline without any fasciculations or atrophy. MOTOR SYSTEM: The tone was normal in the right upper extremity and both lower extremities. It could not be tested adequately in the left upper extremity because the left upper extremity was in an immobilizer. Examination of muscle mass revealed generalized muscle wasting. Examination of power was impossible to perform on individual muscle groups. She responded to deep pain with minimal withdrawal in all four extremities, but would not grips my hand. SENSORY EXAMINATION: She responded appropriately to deep pain with a moan and withdrawal. She could not cooperate for other sensory modalities. REFLEXES: 2++ on the right and 1+ on the left at the biceps, triceps, brachioradialis, and knees and 0 at both ankles. The plantar responses were extensor bilaterally. COORDINATION, STANCE & GAIT : Could not be tested. Impression/Recommendations Diagnostic Impression 1. Ms Debi Werner is an 87-year-old, right-handed, lady, who does have past history of depression, hypertension, thyroid disease, spinal stenosis , atrial fibrillation, and dementia, who recently had left humerus fracture that was treated surgically. Following surgery, she became more altered than at baseline. She was then stabilized at [facility] and then sent to a fpc. At the fpc, she apparently vomited and aspirated and as a result of that had to be readmitted to [facility] for an aspiration pneumonia and sepsis. 2. She looks about the same as yesterday. She is able to maintain arousal for as long as she is kept occupied. 3. On neurological examination, at this time, she can be aroused with painful stimuli, but is mute and unable to communicate in any manner. She also has right VII central facial paresis, brisker deep tendon reflexes on the right side , and extensor plantar responses bilaterally. 4. A prolonged electroencephalogram performed for two days at [facility] revealed an encephalopathy of moderate degree and in addition, left temporal interictal discharges, but no ictal phenomena. 5. An MRI scan of the brain performed recently at [facility] revealed atrophy , deep white matter disease, and a left centrum semiovale recent infarct. 6. Her laboratory data on my initial evaluation revealed a WBC count elevated to 12,500, an anemia with hemoglobin of 9.2 G. The chemistry panel revealed an elevated blood glucose at 141, elevated CK at 166, and lactic acid that was elevated to 7.4 when she came in. The Urinalysis revealed 1+ leukocyte esterase with 2-4 red blood cells and 2-4 white blood cells per high-power field , and a moderate amount of yeast with few bacteria. 7. The [place] done [place] [facility] [place] a moderately severe encephalopathy with a toxic metabolic component as evidenced by triphasic waves. 8. The patient's history, neurological examination, imaging studies, electroencephalogram findings, and laboratory data are most compatible with an underlying dementia with superimposed toxic encephalopathy related to her pneumonia and sepsis. 9. 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 10. Her altered mental state is related to the ongoing multifactorial encephalopathy. Recommendations 1. Continue present management including aggressive treatment of the patient's infectious process and respiratory process. 2. Watch her off anti-seizure medicines. 3. Observe closely. Michael Cross M.D., [place]. MICHAEL CROSS Mar 09, 2017 12:21
--- NOTE | 2017-03-09 12:41 | Diagnostic Imaging Report ---
Indication: Chest pain Comparison: 03/05/17 A single view chest radiograph was obtained. Findings: Extensive infiltrates most interstitium noted bilaterally without significant change. Nodularity of the density in the left upper lobe noted. Small pleural effusions are suspected. Impression: Patchy bilateral infiltrates and/or pulmonary edema. Small bilateral pleural effusion suspected.
--- NOTE | 2017-03-09 14:34 | Diagnostic Imaging Report ---
Indication: long term care pharmacist venous access Findings: After the indications, procedure, risks, complications, and alternatives of the procedure were explained, written informed consent was obtained. The right upper extremity was prepped with alcohol. All elements of maximal sterile barrier technique were followed including usage of a cap, mask, sterile gown, sterile gloves, hand hygiene and a large sterile sheet. Sonographic evaluation of the upper extremity was performed demonstrating a patent and compressible basilic vein. Access was obtained under real-time ultrasound guidance and digital image was saved and archived. An .018 wire was introduced. Needle exchanged for a 5 Filipino peel-away sheath. Measurements were obtained. A 5 Filipino dual-lumen Power PICC line catheter was cut to 35 cm and introduced over the wire. Peel-away sheath and wire were removed.Catheter was secured to the skin using 2-0 Prolene suture. Both ports aspirate and flush easily. Fluoroscopic Images show distal tip in the superior vena cava. Total fluoroscopic time 0.1 minute. Impression: Successful placement of an upper extremity PICC line catheter
[2017-03-09 16:17] VITALS: BP 116/53
--- NOTE | 2017-03-09 18:01 | Geriatric Progress Note ---
Assessment/Plan Problems: (1) Dementia (2) Depression, major, recurrent, severe with psychosis (3) Dysphagia due to recent cerebrovascular accident (CVA) (4) Abnormal EKG (5) Pneumonia (6) Severe sepsis (7) Respiratory distress (8) Comminuted left humeral fracture with routine healing (9) Leukocytosis (10) Bacteremia due to Gram-positive bacteria Assessment/Plan Discussed with Dr. Carranza, will transfer to SNF with R.T. tomorrow for further stabilization. Reviewed with dtr who concurs. Dictated #[id number] Discussed with: family, hospital staff Subjective Interval Events Patient with eyes closed, no response. No overt distress. Staff reports functionally stable. Cr up to 1.6. Otherwise, labs unremarkable. PICC line placed. Central line to be removed with tip C&S. Subjective Does not respond. Geriatric Geriatric Last 24 Hour Vital Signs Date Time Temp Pulse Resp B/P (MAP) Pulse Ox O2 Delivery O2 Flow Rate FiO2 03/09/17 16:17 97.2 78 20 116/53 96 Venturi Mask 14.0 03/09/17 12:05 97.0 81 20 129/64 95 Venturi Mask 14.0 03/09/17 09:45 97 Venturi Mask 12.0 50 03/09/17 09:45 80 20 Venturi Mask 12.0 50 03/09/17 09:45 Venturi Mask 12.0 50 03/09/17 08:19 97.0 76 20 152/66 99 Venturi Mask 14.0 03/09/17 04:02 97.7 68 20 128/74 98 Venturi Mask 03/09/17 04:00 74 03/09/17 00:17 97.9 76 20 126/68 98 Mechanical Ventilator 03/09/17 00:00 74 03/08/17 21:21 97.9 76 20 147/73 98 Venturi Mask 03/08/17 21:00 98.0 76 20 147/73 98 Venturi Mask 03/08/17 20:00 77 03/08/17 19:30 95 Venturi Mask 14.0 55 03/08/17 19:30 Venturi Mask 14.0 55 03/08/17 19:30 86 21 Venturi Mask 14.0 55 Intake and Output 03/09/17 03/10/17 19:00 07:00 # Voids 4 Laboratory Tests Test 03/09/17 06:00 White Blood Count 13.6 K/UL (4.8-10.8) H Red Blood Count 2.79 M/UL (4.20-5.40) L Hemoglobin 9.2 G/DL (12.0-16.0) L Hematocrit 27.2 % (37.0-47.0) L Mean Corpuscular Volume 98 FL (80-99) Mean Corpuscular Hemoglobin 33.1 PG (27.0-31.0) H Mean Corpuscular Hemoglobin Concent 33.9 G/DL (32.0-36.0) Red Cell Distribution Width 13.1 % (11.6-14.8) Platelet Count 363 K/UL (150-450) Mean Platelet Volume 5.2 FL (6.5-10.1) L Neutrophils (%) (Auto) 82.9 % (45.0-75.0) H Lymphocytes (%) (Auto) 10.6 % (20.0-45.0) L Monocytes (%) (Auto) 5.8 % (1.0-10.0) Eosinophils (%) (Auto) 0.3 % (0.0-3.0) Basophils (%) (Auto) 0.4 % (0.0-2.0) Sodium Level 135 MMOL/L (136-145) L Potassium Level 3.4 MMOL/L (3.5-5.1) L Chloride Level 96 MMOL/L (98-107) L Carbon Dioxide Level 37 MMOL/L (21-32) H Anion Gap 2 (5-15) L Blood Urea Nitrogen 27 mg/dL (7-18) H Creatinine 1.6 MG/DL (0.55-1.30) H Estimat Glomerular Filtration Rate mL/min (>60) Glucose Level 156 MG/DL (74-106) H Calcium Level 9.3 MG/DL (8.5-10.1) Magnesium Level 1.6 MG/DL (1.8-2.4) L Current Medications Medications (Trade) Dose Ordered Sig/Autumn Route PRN Reason Start Time Stop Time Status Last Admin Dose Admin Chlorhexidine Gluconate (Lauren-Hex 2%) 1 applic DAILY@1999 TOPIC 03/09/17 20:00 04/08/17 19:59 Furosemide (Lasix) 40 mg DAILY IV 03/04/17 13:30 04/03/17 13:29 03/09/17 08:49 Heparin Sodium (Porcine) (Heparin 5000 units/ml) 5,000 units Q12H SUBQ 02/24/17 21:00 03/26/17 20:59 03/09/17 08:51 Heparin Sodium/ Sodium Chloride (Heparin 2000 units/Ns 1000ml premix) 2,000 unit ONCE PRN INJ PICC PLACEMENT 03/09/17 11:15 03/10/17 23:59 Lidocaine HCl (Xylocaine 1% 30ml) 30 ml ONCE PRN INJ PICC PLACEMENT 03/09/17 11:15 03/10/17 23:59 Pantoprazole (Protonix) 40 mg EVERY 12 HOURS IVP 02/24/17 12:00 03/26/17 11:59 03/09/17 08:50 Piperacillin Sod/ Tazobactam Sod 3.375 gm/Dextrose 110 ml @ 27.5 mls/hr EVERY 8 HOURS IV 03/04/17 22:00 03/11/17 21:59 03/09/17 06:01 Potassium Chloride (KCl 10% 20 mEq oral solution) 20 meq BID PEG 03/05/17 18:00 04/04/17 17:59 03/09/17 08:49 Thiamine HCl (Vitamin B1) 100 mg DAILY GT 03/04/17 16:45 04/03/17 16:44 03/09/17 08:50 Vancomycin HCl (Vanco rx to dose) 1 ea DAILY PRN MISC PER RX PROTOCOL 02/24/17 09:00 03/26/17 08:59 Vancomycin HCl 1 gm/Dextrose 275 ml @ 183.708 mls/hr Q24H IVPB 03/06/17 04:00 03/11/17 03:59 03/09/17 04:12 Height (Feet): 5 Height (Inches): 5.00 Weight (Pounds): 100 General Appearance: no apparent distress Neck: no mass Respiratory: rales, rhonchi, wheezing - expioratory Cardiovascular: regular rate, rhythm Gastrointestinal: normal bowel sounds, non tender, soft, no mass, no organomegaly, non-distended Musculoskeletal: no calf tenderness Edema: no edema noted Generalized GEETA WOOD Mar 09, 2017 18:01
[2017-03-09] MEDS ORDERED: VANCOMYCIN1 GM/2502 IVPB (18:09)
[2017-03-09] MEDS ORDERED: PANTOPRAZOLE SO20 MG ORAL (18:09)
[2017-03-09] MEDS ORDERED: ZOSYN 3.373.375 GM/1 IVPB (18:09)
[2017-03-09] MEDS ORDERED: DUONEB 0.5-3(2.53 ML HHN (18:09)
[2017-03-09] MEDS ORDERED: HEPARIN SO5000 UNIT2 SUBQ (18:09)
[2017-03-09] MEDS ORDERED: OSMOLITE 1.21500 ML PO (18:12)
--- NOTE | 2017-03-09 18:17 | Discharge Instructions ---
Discharge Instructions Discharge Instructions Services at Discharge: oxygen therapy Follow Up Orders Ventimask @ 50%, titrate FiO2 to sat 92-95%. Return to Work/School on: Mar 09, 2017 For Congestive Heart Failure Reminder Report to your physician any weight gain of 5 pounds or more in one week. GEETA WOOD Mar 09, 2017 18:17
[2017-03-09 20:36] VITALS: BP 129/60
[2017-03-09] MEDS: Albuterol/Ipratropium 3ml neb HHN SCH (20:40)
--- NOTE | 2017-03-09 21:05 | General Progress Note ---
Assessment/Plan Assessment/Plan Assessment - anemia - patient not candidate for GI w/u - Resp failure - improving - aspiration risk - s/p PEG - reactive airways - improved - Leukocytosis concerning - OBS - abnormal lytes Recommendations - continue TF - replace lytes - monitor residuals - elevate HOB - IVF - pulmonary toilet - d/c planning Subjective Allergies: Coded Allergies: NO KNOWN ALLERGIES (Unverified Allergy, Unknown, 08/24/15) Subjective Non interactive tolerating TF labs noted no events overnight Objective Last 24 Hour Vital Signs Date Time Temp Pulse Resp B/P (MAP) Pulse Ox O2 Delivery O2 Flow Rate FiO2 03/09/17 20:36 97.9 78 20 129/60 97 Venturi Mask 03/09/17 20:00 77 03/09/17 19:40 86 20 98 Venturi Mask 14.0 55 03/09/17 19:30 95 Venturi Mask 10.0 45 03/09/17 19:30 75 20 Venturi Mask 10.0 45 03/09/17 19:30 80 20 95 Venturi Mask 14.0 55 03/09/17 19:30 Venturi Mask 10.0 45 03/09/17 16:17 97.2 78 20 116/53 96 Venturi Mask 14.0 03/09/17 12:05 97.0 81 20 129/64 95 Venturi Mask 14.0 03/09/17 09:45 97 Venturi Mask 12.0 50 03/09/17 09:45 80 20 Venturi Mask 12.0 50 03/09/17 09:45 Venturi Mask 12.0 50 03/09/17 08:19 97.0 76 20 152/66 99 Venturi Mask 14.0 03/09/17 04:02 97.7 68 20 128/74 98 Venturi Mask 03/09/17 04:00 74 03/09/17 00:17 97.9 76 20 126/68 98 Mechanical Ventilator 03/09/17 00:00 74 03/08/17 21:21 97.9 76 20 147/73 98 Venturi Mask Intake and Output 03/09/17 03/10/17 19:00 07:00 # Voids 5 # Bowel Movements 2 Laboratory Tests 03/09/17 06:00: White Blood Count 13.6H, Red Blood Count 2.79L, Hemoglobin 9.2L, Hematocrit 27.2L, Mean Corpuscular Volume 98, Mean Corpuscular Hemoglobin 33.1H, Mean Corpuscular Hemoglobin Concent 33.9, Red Cell Distribution Width 13.1, Platelet Count 363, Mean Platelet Volume 5.2L, Neutrophils (%) (Auto) 82.9H, Lymphocytes (%) (Auto) 10.6L, Monocytes (%) (Auto) 5.8, Eosinophils (%) (Auto) 0.3, Basophils (%) (Auto) 0.4, Sodium Level 135L, Potassium Level 3.4L, Chloride Level 96L, Carbon Dioxide Level 37H, Anion Gap 2L, Blood Urea Nitrogen 27H, Creatinine 1.6H, Estimat Glomerular Filtration Rate , Glucose Level 156H, Calcium Level 9.3, Magnesium Level 1.6L Height (Feet): 5 Height (Inches): 5.00 Weight (Pounds): 100 Objective Thin WW NCAT supple b/l ronchi RR abd soft ND, (+) GT no edema (+) (L)UE immobilizer ETTA ZURITA Mar 09, 2017 21:05
[2017-03-10] VITALS: BP 120/57
[2017-03-10] MEDS: Albuterol/Ipratropium 3ml neb HHN SCH ×2 (01:32→07:18)
[2017-03-10 03:19] LABS: BASOPHILS % (AUTO) 0.8 % (0.0-2.0); LYMPHOCYTES % (AUTO) 14.2 % (20.0-45.0); MEAN CORPUSCULAR HEMOGLOBIN 32.7 PG (27.0-31.0); MEAN CORPUSCULAR VOLUME 96 FL (80-99); MEAN PLATELET VOLUME 5.3 FL (6.5-10.1); PLATELET COUNT 380 K/UL (150-450); RED BLOOD COUNT 2.85 M/UL (4.20-5.40); RED CELL DISTRIBUTION WIDTH 12.8 % (11.6-14.8); WHITE BLOOD COUNT 11.7 K/UL (4.8-10.8)
[2017-03-10 03:30] LABS: ANION GAP 3 (5-15); CALCIUM 9.7 MG/DL (8.5-10.1); CARBON DIOXIDE 38 MMOL/L (21-32); CHLORIDE 99 MMOL/L (98-107); CREATININE 1.8 MG/DL (0.55-1.30); POTASSIUM 3.5 MMOL/L (3.5-5.1); SODIUM 140 MMOL/L (136-145)
[2017-03-10] MEDS: Vancomycin 1gm/D5W 275ml IVPB SCH ×2 (04:00)
[2017-03-10 04:12] VITALS: BP 119/49
[2017-03-10] MEDS: Piperacillin/Tazobactam 3.375 GM in D5W 110 ML IV SCH (05:09)
[2017-03-10 08:38] VITALS: BP 137/62
[2017-03-10] MEDS: Pantoprazole Inj IVP SCH (09:52)
[2017-03-10] MEDS: Heparin 5000 units/ml inj SUBQ SCH (10:05)
[2017-03-10] MEDS ORDERED: Tubing IV Secondary IV ONE (11:14)
[2017-03-10] MEDS ORDERED: NS 500ML IV ONE (11:14)
--- NOTE | 2017-03-10 13:57 | Pulmonology Progress Note ---
Assessment/Plan Assessment/Plan 1. Sepsis due to pneumonia. + staph hominus 2. Pneumonia. 3. Dementia. 4. Lactic acidosis. 5. Left humerus fracture. 6. Status post stroke. 7. Paroxysmal atrial fibrillation. 8. Seizure disorder. 9. Hyperglycemia. 10. CHF seems more high risk for resp failure full code per family dc abx soon GT feeds dc plan Subjective ROS Limited/Unobtainable: Yes Allergies: Coded Allergies: NO KNOWN ALLERGIES (Unverified Allergy, Unknown, 08/24/15) Objective Last 24 Hour Vital Signs Date Time Temp Pulse Resp B/P (MAP) Pulse Ox O2 Delivery O2 Flow Rate FiO2 03/10/17 08:38 97.0 82 20 137/62 95 Venturi Mask 14.0 03/10/17 08:00 78 03/10/17 07:26 73 18 97 Venturi Mask 10.0 45 03/10/17 07:18 71 18 95 Venturi Mask 10.0 45 03/10/17 07:18 75 20 Venturi Mask 10.0 45 03/10/17 07:18 Venturi Mask 10.0 45 03/10/17 07:18 95 Venturi Mask 10.0 45 03/10/17 04:12 97.5 74 20 119/49 97 Venturi Mask 03/10/17 04:00 74 03/10/17 01:33 84 20 98 Venturi Mask 10.0 45 03/10/17 01:32 78 20 96 Venturi Mask 10.0 45 03/10/17 00:00 98.1 76 20 120/57 97 Venturi Mask 03/10/17 00:00 71 03/09/17 20:36 97.9 78 20 129/60 97 Venturi Mask 03/09/17 20:00 77 03/09/17 19:40 86 20 98 Venturi Mask 14.0 55 03/09/17 19:30 95 Venturi Mask 10.0 45 03/09/17 19:30 75 20 Venturi Mask 10.0 45 03/09/17 19:30 80 20 95 Venturi Mask 14.0 55 03/09/17 19:30 Venturi Mask 10.0 45 03/09/17 16:17 97.2 78 20 116/53 96 Venturi Mask 14.0 Intake and Output 03/10/17 03/11/17 19:00 07:00 # Voids 2 # Bowel Movements 1 HEENT: atraumatic Respiratory/Chest: decreased breath sounds Cardiovascular: normal rate Laboratory Tests 03/10/17 02:40: White Blood Count 11.7H, Red Blood Count 2.85L, Hemoglobin 9.3L, Hematocrit 27.4L, Mean Corpuscular Volume 96, Mean Corpuscular Hemoglobin 32.7H, Mean Corpuscular Hemoglobin Concent 34.0, Red Cell Distribution Width 12.8, Platelet Count 380, Mean Platelet Volume 5.3L, Neutrophils (%) (Auto) 78.0H, Lymphocytes (%) (Auto) 14.2L, Monocytes (%) (Auto) 7.0, Eosinophils (%) (Auto) 0.0, Basophils (%) (Auto) 0.8, Sodium Level 140, Potassium Level 3.5, Chloride Level 99, Carbon Dioxide Level 38H, Anion Gap 3L, Blood Urea Nitrogen 33H, Creatinine 1.8H, Estimat Glomerular Filtration Rate , Glucose Level 130H, Calcium Level 9.7 , Vancomycin Level Trough 22.8H PAULINA ANAND Mar 10, 2017 13:57
[2017-03-10] MEDS ORDERED: Vancomycin 1gm/D5W 275ml IVPB SCH ×2 (16:00)
--- NOTE | 2017-03-10 16:45 | Discharge Summary ---
DATE OF ADMISSION: 02/24/2017 DATE OF DISCHARGE: 03/10/2017 DISCHARGE DIAGNOSES: 1. Acute respiratory failure, marked lactic acidosis, and apparent sepsis associated with probable aspiration pneumonia. 2. Element of congestive heart failure, likely diastolic, acute on chronic. 3. Recent surgical reduction of displaced left humeral fracture. 4. Apparent lacunar stroke in centrum ovale associated with fracture. 5. History of severe psychotic depression, treated in the past with electroconvulsive therapy, maintained on residual antipsychotic and antidepressant therapy. 6. Hypertension. 7. History of parathyroid disorder. 8. Spinal stenosis, gait disorder, and lower extremity weakness. 9. Osteoporosis. 10. Decreased oral intake. 11. Dysphagia, apparently associated with stroke. 12. Status post hysterectomy, appendectomy, and tonsillectomy. HISTORY OF PRESENT ILLNESS: The patient is an 87-year-old woman who had been admitted to [facility] with a left humeral fracture, which was reduced and surgically fixated. The patient was subsequently discharged to [facility], but on that evening developed vomiting and subsequently hypoxia and was transferred by paramedics to [facility]. Details of the history and physical examination are per the dictation of 02/24/2017. HOSPITAL COURSE: The patient was admitted, requiring BiPAP support. She was noted to be extremely acidotic with a high lactate and she was treated with antibiotic coverage, respiratory support in the form of BiPAP, and thiamine. The patient was seen in Pulmonary consultation by Dr. Osmar Carranza and Neurologic consultation by Dr. Iglesia Cross. The patient initially did not respond well to therapy, but gradually over a more extended period of time, she began to stabilize and improve with decreased oxygenation needs. She was converted to a Ventimask and at the time of discharge, she was on 50% FiO2 on the Ventimask. The patient was thought to have significant dysphagia and also her mental status prevented adequate feeding trials. After discussion with the family, it was determined the family for restorationist reasons wished to continue all measures for the patient including Full Code, and the patient was evaluated by Dr. Armida Garza and a percutaneous endoscopic gastrostomy tube was placed. The patient was covered with Zosyn and vancomycin and appeared to improve on this antibiotic combination. Her sputum grew out Staphylococcus aureus and a small amount of Kendra albicans. Prior urine culture grew out Kendra glabrata and she was given 1 dose of Diflucan. Blood cultures revealed Staphylococcus hominis out of the central line and there was concern that the central line was infected, however, repeat blood cultures through the central line showed no growth. The patient is to complete additional 7 days of Zosyn and vancomycin therapy. Towards the end of her course, it appeared that the patient has become somewhat fluid overloaded with the therapy and the patient was treated with furosemide, which improved her respiratory status as well. However, on the day prior to discharge, her creatinine was up to 1.6, and thus, furosemide and potassium supplementations were discontinued. The patient obviously has poor prognosis and is at high risk for recurrent aspiration of secretions or refluxed gastrointestinal contents, and the family is aware of this, but wished to continue aggressive therapy as noted above. The patient will be discharged to [facility], which has a respiratory unit with full-time respiratory therapy so that her respiratory needs can be adequately managed. At the time of discharge, her medications will include heparin 5000 units q.12 h., DuoNeb q.6 h. by nebulizer, Osmolite 1.2 1100 mL daily, pantoprazole 20 mg q.12 h., piperacillin and tazobactam 3.375 g q.8 h. for additional 7 days, vancomycin 1 g daily for additional 7 days. The patient on is on Ventimask with O2 of 50%. The patient will be followed up at the respiratory facility by Dr. Osmar Carranza. Scar Callahan M.D. DR: CLIFF JOB#: [id number] CC: [id number]
--- NOTE | 2017-03-10 19:39 | General Progress Note ---
Assessment/Plan Assessment/Plan Assessment - anemia - patient not candidate for GI w/u - Resp failure - improving - aspiration risk - s/p PEG - reactive airways - improved - Leukocytosis concerning - OBS - abnormal lytes Recommendations - continue TF - replace lytes - monitor residuals - elevate HOB - IVF - pulmonary toilet - d/c planning Subjective Allergies: Coded Allergies: NO KNOWN ALLERGIES (Unverified Allergy, Unknown, 08/24/15) Subjective Non interactive tolerating TF no events overnight for d/c today Objective Last 24 Hour Vital Signs Date Time Temp Pulse Resp B/P (MAP) Pulse Ox O2 Delivery O2 Flow Rate FiO2 03/10/17 08:38 97.0 82 20 137/62 95 Venturi Mask 14.0 03/10/17 08:00 78 03/10/17 07:26 73 18 97 Venturi Mask 10.0 45 03/10/17 07:18 71 18 95 Venturi Mask 10.0 45 03/10/17 07:18 75 20 Venturi Mask 10.0 45 03/10/17 07:18 Venturi Mask 10.0 45 03/10/17 07:18 95 Venturi Mask 10.0 45 03/10/17 04:12 97.5 74 20 119/49 97 Venturi Mask 03/10/17 04:00 74 03/10/17 01:33 84 20 98 Venturi Mask 10.0 45 03/10/17 01:32 78 20 96 Venturi Mask 10.0 45 03/10/17 00:00 98.1 76 20 120/57 97 Venturi Mask 03/10/17 00:00 71 03/09/17 20:36 97.9 78 20 129/60 97 Venturi Mask 03/09/17 20:00 77 03/09/17 19:40 86 20 98 Venturi Mask 14.0 55 Intake and Output 03/10/17 03/11/17 19:00 07:00 # Voids 2 # Bowel Movements 1 Laboratory Tests 03/10/17 02:40: White Blood Count 11.7H, Red Blood Count 2.85L, Hemoglobin 9.3L, Hematocrit 27.4L, Mean Corpuscular Volume 96, Mean Corpuscular Hemoglobin 32.7H, Mean Corpuscular Hemoglobin Concent 34.0, Red Cell Distribution Width 12.8, Platelet Count 380, Mean Platelet Volume 5.3L, Neutrophils (%) (Auto) 78.0H, Lymphocytes (%) (Auto) 14.2L, Monocytes (%) (Auto) 7.0, Eosinophils (%) (Auto) 0.0, Basophils (%) (Auto) 0.8, Sodium Level 140, Potassium Level 3.5, Chloride Level 99, Carbon Dioxide Level 38H, Anion Gap 3L, Blood Urea Nitrogen 33H, Creatinine 1.8H, Estimat Glomerular Filtration Rate , Glucose Level 130H, Calcium Level 9.7 , Vancomycin Level Trough 22.8H Height (Feet): 5 Height (Inches): 5.00 Weight (Pounds): 100 Objective Thin WW NCAT supple b/l ronchi RR abd soft ND, (+) GT no edema (+) (L)UE immobilizer ETTA ZURITA Mar 10, 2017 19:39
--- NOTE | 2017-03-22 17:57 | Cardiology Report ---
APPROVED REPORT EKG Measurement Heart [id number] Sinus tachycardia Low voltage QRS Abnormal ECG
== END 2017-03-10 11:15 | DRG 871 ==
LOC: EDBD 04:38 → EMR 04:49 → 2E 05:08 → EDBEDREQ 10:34
PROC: 02H633Z Insertion of Infusion Device into Right Atrium, Percutaneous Approach (ICD-10-PCS; principal; 2017-03-03 08:41)
PROC: 0DH63UZ Insertion of Feeding Device into Stomach, Percutaneous Approach (ICD-10-PCS; principal; 2017-03-03 08:41)
PROC: B244ZZZ Ultrasonography of Right Heart (ICD-10-PCS; principal; 2017-03-03 08:41)
PROC: 30233N1 Transfusion of Nonautologous Red Blood Cells into Peripheral Vein, Percutaneous Approach (ICD-10-PCS; 2017-03-07)
PROC: B548ZZA Ultrasonography of Superior Vena Cava, Guidance (ICD-10-PCS; 2017-03-09)
PROC: 02HV33Z Insertion of Infusion Device into Superior Vena Cava, Percutaneous Approach (ICD-10-PCS; 2017-03-09)
DX: A41.9 Sepsis, unspecified organism (principal); J69.0 Pneumonitis due to inhalation of food and vomit; J96.01 Acute respiratory failure with hypoxia; I50.33 Acute on chronic diastolic (congestive) heart failure; G92 Toxic encephalopathy; F32.3 Major depressive disorder, single episode, severe with psychotic features; R13.10 Dysphagia, unspecified; E83.42 Hypomagnesemia; R65.20 Severe sepsis without septic shock; I48.0 Paroxysmal atrial fibrillation; F03.90 Unspecified dementia, unspecified severity, without behavioral disturbance, psychotic disturbance, mood disturbance, and anxiety; G40.909 Epilepsy, unspecified, not intractable, without status epilepticus; D64.9 Anemia, unspecified; M48.00 Spinal stenosis, site unspecified; M81.0 Age-related osteoporosis without current pathological fracture; R26.9 Unspecified abnormalities of gait and mobility; R73.9 Hyperglycemia, unspecified; I69.991 Dysphagia following unspecified cerebrovascular disease; R94.31 Abnormal electrocardiogram [ECG] [EKG]; I11.0 Hypertensive heart disease with heart failure; S42.302D Unspecified fracture of shaft of humerus, left arm, subsequent encounter for fracture with routine healing; E87.6 Hypokalemia
CPT/HCPCS: 36415; 36569; 36600; 71010; 76937; 80048; 80053; 80202; 81001; 81003; 82270; 82550; 82553; 82803; 82962; 83540; 83550; 83605; 83735; 83880; 84100; 84484; 85007; 85025; 85610; 86850; 86900; 86901; 86920; 87040; 87070; 87081; 87086; 87181; 87205; 87324; 93005; 93306; 94003; 94150; 94640; 94664; 94760; 95819; 99285; J2250; J7620